=== PATIENT | male | born 1940 | race Caucasian/White ===

== ENCOUNTER 2017-02-14 11:36 | Inpatient (IN) | payer MEDICARE, OTHER ==
[2017-02-14 11:57] VITALS: BMI 33.5
[2017-02-14] MEDS ORDERED: MAGNESIUM SULF 50% (8.12 MEQ/2 ML-1 GM VIAL) ONE (12:01)
[2017-02-14] MEDS ORDERED: methylPREDNISolone NA SUCC 125 MG/2 ML VIAL ONE (12:02)
[2017-02-14] MEDS ORDERED: MAGNESIUM SULF 50% (8.12 MEQ/2 ML-1 GM VIAL) IVPB ONE (12:07)
[2017-02-14] MEDS ORDERED: methylPREDNISolone NA SUCC 125 MG/2 ML VIAL IVPB ONE (12:09)
[2017-02-14] MEDS ORDERED: ALBUTEROL SO4 2.5/IPRATROPIUM 0.5 INH SOL 3 ML VIAL.NEB. NEB ONE ×3 (12:10→14:11)
--- NOTE | 2017-02-14 12:16 | PDOC ---
History of Present Illness <Ana Paula Haines - Last Filed: 02/14/17 12:21> <Ariana Sanchez - Last Filed: 02/14/17 14:04> - General Chief Complaint: Shortness of Breath Stated Complaint: ASTHMA - History of Present Illness Initial Comments: 02/14/17 12:20 The patient is a 76 year old male, with a significant past medical history of asthma and hypertension (on Lasix), who presents to the emergency department [facility], with shortness of breath, difficulty breathing, and cough for the past few days with increased symptoms today. The patient reports his cough is dry, nonproductive. The patient reports the nebulizer treatment he received via ems slightly alleviated his respiratory symptoms today. The patient reports he was admitted to the hospital in [place] for pneumonia about a year ago and reports his symptoms today feel similar to the symptoms experienced at the time of his admission. Secondarily, the patient reports his left breast is slightly larger than his right breast and feels his left breast has slowly becoming more swollen over time. He denies chest pain, headache and dizziness. He denies fever, chills, nausea, vomit, diarrhea and constipation. He denies dysuria, frequency, urgency and hematuria. Allergies: NKDA Social history: denies toxic habits Surgical History: mora and screws in right lower extremity PCP - Dr. Wheat (Ana Paula Haines) Past History <Ana Paula Haines - Last Filed: 02/14/17 12:21> - Past Medical History Anemia: No Asthma: Yes Cancer: No Cardiac Disorders: No CVA: No COPD: No CHF: No Dementia: No Diabetes: No GI Disorders: No Disorders: No HTN: Yes Hypercholesterolemia: Yes Liver Disease: No Seizures: No Thyroid Disease: No - Surgical History Abdominal Surgery: No Appendectomy: No Cardiac Surgery: No Cholecystectomy: No Lung Surgery: No Neurologic Surgery: No Orthopedic Surgery: Yes (R LEG ORIF) - Immunization History Immunization Up to Date: Yes - Psycho/Social/Smoking Cessation Hx Anxiety: No Suicidal Ideation: Yes Smoking History: Never smoked Have you smoked in the past 12 months: No Number of Cigarettes Smoked Daily: 0 Cigars Per Day: 0 Information on smoking cessation initiated: No Hx Alcohol Use: Yes Drug/Substance Use Hx: Yes Substance Use Type: Alcohol Hx Substance Use Treatment: No <Ariana Sanchez - Last Filed: 02/14/17 14:04> - Past Medical History Allergies/Adverse Reactions: Allergies Allergy/AdvReac Type Severity Reaction Status Date / Time No Known Allergies Allergy Verified 02/14/17 11:57 Home Medications: Ambulatory Orders Acetaminophen with Codeine [Tylenol with Codeine #4 Tablet] 1 each PO Q8H PRN Albuterol 2.5/Ipratropium 0.5 [Duoneb -] 1 neb IH Q6H PRN 02/14/17 Albuterol Sulfate Inhaler - [Ventolin Hfa Inhaler -] 2 inh PO Q4H PRN 02/14/17 Aspirin [ASA -] 81 mg PO DAILY 02/14/17 Budesonide/Formeterol Fumarate [SYMBICORT 160/4.5mcg -] 2 inh PO BID 02/14/17 Furosemide [Lasix] 40 mg PO ASDIR 02/14/17 Metoprolol Tartrate [Lopressor -] 25 mg PO DAILY 02/14/17 Thiamine HCl [B-1] 100 mg PO DAILY 02/14/17 Tramadol HCl [Ultram] 50 mg PO BID PRN 02/14/17 Valsartan [Diovan] 80 mg PO DAILY 02/14/17 Cardiac Specific PMH - Complaint Specific PMHX Pacemaker: No <Ariana Sanchez - Last Filed: 02/14/17 14:04> Review of Systems - Review of Systems Able to Perform ROS?: Yes <Ana Paula Haines - Last Filed: 02/14/17 12:21> <Ariana Sanchez - Last Filed: 02/14/17 14:04> - Review of Systems Comments:: 02/14/17 12:21 GENERAL/CONSTITUTIONAL: No fever or chills. No weakness. HEAD, EYES, EARS, NOSE AND THROAT: No change in vision. No ear pain or discharge. No sore throat. CARDIOVASCULAR: No chest pain or shortness of breath. RESPIRATORY: (+)SOB, cough and wheezing, No hemoptysis. GASTROINTESTINAL: No nausea, vomiting, diarrhea or constipation. GENITOURINARY: No dysuria, frequency, or change in urination. MUSCULOSKELETAL: No joint or muscle swelling or pain. No neck or back pain. SKIN: No rash NEUROLOGIC: No headache, vertigo, loss of consciousness, or change in strength/ sensation. ENDOCRINE: No increased thirst. No abnormal weight change. HEMATOLOGIC/LYMPHATIC: No anemia, easy bleeding, or history of blood clots. ALLERGIC/IMMUNOLOGIC: No hives or skin allergy. (Ana Paula Haines) *Physical Exam <Ana Paula Haines - Last Filed: 02/14/17 12:21> <Ariana Sanchez - Last Filed: 02/14/17 14:04> - Vital Signs Last Vital Signs Temp Pulse Resp BP Pulse Ox 97.9 F 74 18 150/85 100 02/14/17 11:54 02/14/17 11:54 02/14/17 11:54 02/14/17 11:54 02/14/17 12:16 - Physical Exam Comments: 02/14/17 12:22 GENERAL: Awake, alert, and fully oriented, in no acute distress HEAD: No signs of trauma EYES: PERRLA, EOMI, sclera anicteric, conjunctiva clear ENT: (+) Dry mucosa. Auricles normal inspection, hearing grossly normal, nares patent, oropharynx clear without exudates. NECK: Normal ROM, supple, no lymphadenopathy, JVD, or masses LUNGS: (+) bilateral wheezing with good effort. Breath sounds equal, No crackles HEART: Regular rate and rhythm, normal S1 and S2, no murmurs, rubs or gallops ABDOMEN: Soft, nontender, normoactive bowel sounds. No guarding, no rebound. No masses EXTREMITIES: (+) bilateral non-pitting edema. Normal range of motion. No clubbing or cyanosis. No cords, erythema, or tenderness NEUROLOGICAL: AAOx3. Normal speech, SKIN: Warm, Dry, normal turgor, no rashes or lesions noted. (Ana Paula Haines) Heart Score/ECG Review #1 General ECG Interpretation: Sinus Rhythm, Normal Rate (76 bpm), Normal Intervals , No acute ischemic changes <Ariana Sanchez - Last Filed: 02/14/17 14:04> ED Treatment Course - LABORATORY CBC & Chemistry Diagram: 02/14/17 12:45 02/14/17 12:45 <Ariana Sanchez - Last Filed: 02/14/17 14:04> - ADDITIONAL ORDERS Additional order review: Laboratory Results 02/14/17 02/14/17 12:45 12:10 Sodium 142 Potassium 4.1 Chloride 107 Carbon Dioxide 24 Anion Gap 11 BUN 12 D Creatinine 0.6 L D Creat Clearance w eGFR > 60 Random Glucose 78 Calcium 8.1 L Total Bilirubin 1.8 H D AST 37 D ALT 24 D Alkaline Phosphatase 236 H D Creatine Kinase 121 Troponin I < 0.02 B-Natriuretic Peptide 245.39 Total Protein 7.2 Albumin 2.8 L 02/14/17 12:45 RBC 4.30 MCV 76.1 L MCHC 32.1 RDW 22.2 H D MPV 8.7 D Neutrophils % Y Lymphocytes % Y - RADIOLOGY Radiology Studies Ordered: Category Date Time Status CHEST PA & LAT [RAD] Stat Radiology 02/14/17 12:10 Completed - Medications Given in the ED: ED Medications Discontinued Medications Generic Name Dose Route Start Last Admin Trade Name Freq PRN Reason Stop Dose Admin Albuterol/Ipratropium 1 amp 02/14/17 12:10 02/14/17 12:24 Duoneb - NEB 02/14/17 12:11 1 amp ONCE ONE Administration Magnesium Sulfate 2 gm 02/14/17 12:07 02/14/17 12:23 Magnesium Sulfate IVPB 02/14/17 12:08 2 gm ONCE ONE Administration Methylprednisolone Sodium Succinate 125 mg 02/14/17 12:09 02/14/17 12:24 Solu-Medrol - IVPB 02/14/17 12:10 125 mg ONCE ONE Administration Medical Decision Making <Ana Paula Haines - Last Filed: 02/14/17 12:21> <Ariana Sanchez - Last Filed: 02/14/17 14:04> - Medical Decision Making 02/14/17 12:12 77 yo male with h/o HTN, CHF asthma here with cough dry nonproductive, no f/c no chest pain. no leg swelling. has been going on for days, worse since last night. no f/c no h/o blood clots . was admitted for pna, respiratory problem one year ago. denies tobacco use. on exam, pt awake NAD. lungs bilateral wheezing. no f/c no abd tenderness. ext bilat nonpitting edema. differential: pna, asthma exacerbation, bronchitis, chf, plan cbc cxr cmp ekg duoneb steroids, magnesium. reassess. 02/14/17 12:16 (Ariana Sanchez) *DC/Admit/Observation/Transfer <Ana Paula Haines - Last Filed: 02/14/17 12:21> - Discharge Dispostion Admit: Yes <Ariana Sanchez - Last Filed: 02/14/17 14:04> Diagnosis at time of Disposition: Exacerbation of asthma - Referrals Referrals: Lis Flores MD [Primary Care Provider] - - Attestations Scribe Attestion: 02/14/17 12:24 Documentation prepared by Ana Paula Haines, acting as pesticide use medical coordinator for Ariana Sanchez MD, (Ana Paula Haines)
[2017-02-14 12:57] LABS: MCH 24.4 pg (25.7-33.7); MCHC 32.1 g/dl (32.0-35.9); MEAN CELL VOLUME 76.1 fl (80-96); MEAN PLT VOLUME 8.7 fl (7.5-11.1); PLATELET COUNT 118 K/MM3 (134-434); RDW 22.2 % (11.9-15.9)
[2017-02-14 13:35] LABS: ALBUMIN 2.8 g/dl (3.4-5.0); ALK PHOS 236 U/L (45-117); ANION GAP 11 (8-16); BILIRUBIN,TOTAL 1.8 mg/dL (0.2-1.0); CALCIUM 8.1 mg/dL (8.5-10.1); CO2 24 mmol/L (21-32); COCKROFT - GAULT 133.08; CREATININE 0.6 mg/dL (0.7-1.3); GLUCOSE,RANDOM 78 mg/dL (74-106); SGOT/AST 37 U/L (15-37); SGPT/ALT 24 U/L (12-78); TOT PROT 7.2 g/dl (6.4-8.2)
[2017-02-14 13:39] LABS: TROPONIN I < 0.02 ng/ml (0.00-0.05)
[2017-02-14] MEDS ORDERED: FUROSEMIDE 40 MG TABLET (FP) PO SCH (14:30)
[2017-02-14] MEDS ORDERED: ALBUTEROL SO4 2.5/IPRATROPIUM 0.5 INH SOL 3 ML VIAL.NEB. NEB PRN (14:30)
--- NOTE | 2017-02-14 14:30 | HP ---
CHIEF COMPLAINT: PCP: HISTORY OF PRESENT ILLNESS: The patient is a 76 year old male, with a significant past medical history of asthma and hypertension (on Lasix), who presents to the emergency department [facility], with shortness of breath, difficulty breathing, and cough for the past few days with increased symptoms today. The patient reports his cough is dry, nonproductive. The patient reports the nebulizer treatment he received via ems slightly alleviated his respiratory symptoms today. The patient reports he was admitted to the hospital in [place] for pneumonia about a year ago and reports his symptoms today feel similar to the symptoms experienced at the time of his admission. Secondarily, the patient reports his left breast is slightly larger than his right breast and feels his left breast has slowly becoming more swollen over time. He denies chest pain, headache and dizziness. He denies fever, chills, nausea, vomit, diarrhea and constipation. He denies dysuria, frequency, urgency and hematuria. Allergies: NKDA Social history: denies toxic habits Surgical History: mora and screws in right lower extremity PCP - Dr. Wheat ([address] [place] [address]) ER course was notable for: (1) pt recieved solumedrol , nebs, and mag for copd / asthma excerbation (2) cxr noted to have no infiltrate or loculations, / asthma only (3) Social History: Smoking:denies Alcohol:occ Drugs: Family History: Allergies No Known Allergies Allergy (Verified 02/14/17 11:57) HOME MEDICATIONS: Home Medications Medication Instructions Recorded Acetaminophen with Codeine 1 each PO Q8H PRN 02/14/17 [Tylenol with Codeine #4 Tablet] Albuterol 2.5/Ipratropium 0.5 1 neb IH Q6H PRN 02/14/17 [Duoneb -] Albuterol Sulfate Inhaler - 2 inh PO Q4H PRN 02/14/17 [Ventolin Hfa Inhaler -] Aspirin [ASA -] 81 mg PO DAILY 02/14/17 Budesonide/Formeterol Fumarate 2 inh PO BID 02/14/17 [SYMBICORT 160/4.5mcg -] Furosemide [Lasix] 40 mg PO ASDIR 02/14/17 Metoprolol Tartrate [Lopressor -] 25 mg PO DAILY 02/14/17 Thiamine HCl [B-1] 100 mg PO DAILY 02/14/17 Tramadol HCl [Ultram] 50 mg PO BID PRN 02/14/17 Valsartan [Diovan] 80 mg PO DAILY 02/14/17 REVIEW OF SYSTEMS CONSTITUTIONAL: Absent: fever, chills, diaphoresis, generalized weakness, malaise, loss of appetite, weight change HEENT: Absent: rhinorrhea, nasal congestion, throat pain, throat swelling, difficulty swallowing, mouth swelling, ear pain, eye pain, visual changes CARDIOVASCULAR: Absent: chest pain, syncope, palpitations, irregular heart rate, lightheadedness , peripheral edema RESPIRATORY: Absent: (+)cough, (+)shortness of breath, dyspnea with exertion, orthopnea,(+) wheezing, stridor, hemoptysis GASTROINTESTINAL: Absent: abdominal pain, abdominal distension, nausea, vomiting, diarrhea, constipation, melena, hematochezia GENITOURINARY: Absent: dysuria, frequency, urgency, hesitancy, hematuria, flank pain, genital pain MUSCULOSKELETAL: Absent: myalgia, arthralgia, joint swelling, back pain, neck pain SKIN: Absent: rash, itching, pallor HEMATOLOGIC/IMMUNOLOGIC: Absent: easy bleeding, easy bruising, lymphadenopathy, frequent infections ENDOCRINE: Absent: unexplained weight gain, unexplained weight loss, heat intolerance, cold intolerance NEUROLOGIC: Absent: headache, focal weakness or paresthesias, dizziness, unsteady gait, seizure, mental status changes, bladder or bowel incontinence PSYCHIATRIC: Absent: anxiety, depression, suicidal or homicidal ideation, hallucinations. PHYSICAL EXAMINATION Vital Signs - 24 hr 02/14/17 02/14/17 11:54 12:16 Temperature 97.9 F Pulse Rate 74 Respiratory 18 Rate Blood Pressure 150/85 O2 Sat by Pulse 99 100 Oximetry (%) GENERAL: Awake, alert, and fully oriented, in no acute distress. HEAD: Normal with no signs of trauma. EYES: Pupils equal, round and reactive to light, extraocular movements intact, sclera anicteric, conjunctiva clear. No lid lag. EARS, NOSE, THROAT: Ears normal, nares patent, oropharynx clear without exudates. Moist mucous membranes. NECK: Normal range of motion, supple without lymphadenopathy, JVD, or masses. LUNGS: Breath sounds equal, bilaterally wheezing but not in severe distress to auscultation bilaterally. No wheezes, and no crackles. No accessory muscle use. HEART: Regular rate and rhythm, normal S1 and S2 without murmur, rub or gallop. ABDOMEN: Soft, nontender, not distended, normoactive bowel sounds, no guarding, no rebound, no masses. No hepatomegaly or splenomegaly. MUSCULOSKELETAL: Normal range of motion at all joints. No bony deformities or tenderness. No CVA tenderness. UPPER EXTREMITIES: 2+ pulses, warm, well-perfused. No cyanosis. No clubbing. No peripheral edema. LOWER EXTREMITIES: 2+ pulses, warm, well-perfused. No calf tenderness. No peripheral edema. NEUROLOGICAL: Cranial nerves II-XII intact. Normal speech. Normal gait. PSYCHIATRIC: Cooperative. Good eye contact. Appropriate mood and affect. SKIN: Warm, dry, normal turgor, no rashes or lesions noted, normal capillary refill. Laboratory Results - last 24 hr 02/14/17 02/14/17 02/14/17 12:10 12:45 12:45 WBC 7.0 D RBC 4.30 Hgb 10.5 L Hct 32.7 L MCV 76.1 L MCHC 32.1 RDW 22.2 H D Plt Count 118 L D MPV 8.7 D Neutrophils % Y Lymphocytes % Y Sodium 142 Potassium 4.1 Chloride 107 Carbon Dioxide 24 Anion Gap 11 BUN 12 D Creatinine 0.6 L D Creat Clearance w eGFR > 60 Random Glucose 78 Calcium 8.1 L Total Bilirubin 1.8 H D AST 37 D ALT 24 D Alkaline Phosphatase 236 H D Creatine Kinase 121 Troponin I < 0.02 B-Natriuretic Peptide 245.39 Total Protein 7.2 Albumin 2.8 L ASSESSMENT/PLAN: This 76 year old male who presents with c/o asthma excerbation in the ER now with similar complaints without inability to break wheezing. Pt was given solumedrol 125 , mag sulfate 2 gm, and duonebs until they finally tried to break them. 1. copd exacerbation -admission for med surg obs -continue with steroid taper -pulse ox >95% -duo nebs as needed. Visit type - Emergency Visit Emergency Visit: Yes Care time: The patient presented to the Emergency Department on the above date and was hospitalized for further evaluation of their emergent condition. - New Patient This patient is new to me today: Yes Date on this admission: 02/14/17 - Critical Care Critical Care patient: No
[2017-02-14 14:47] LABS: PLATELET ESTIMATE DECREASED (NORMAL)
[2017-02-14 14:50] LABS: HYPOCHROMIA 2+; MICROCYTOSIS 1+; TARGET CELLS FEW
[2017-02-14 14:51] LABS: ANISOCYTOSIS 2+
[2017-02-14] MEDS: BUDESONIDE/FORMETEROL FUMARATE 160/4.5 mcg INHALER IH SCH (22:17)
[2017-02-15 07:53] LABS: BASOPHIL 0.6 % (0-2.0); EOSINOPHIL 0.1 % (0-4.5); MCH 24.8 pg (25.7-33.7); MCHC 32.2 g/dl (32.0-35.9); MEAN CELL VOLUME 77.1 fl (80-96); NEUTROPHILS 87.8 % (42.8-82.8); PLATELET COUNT 112 K/MM3 (134-434); RDW 22.7 % (11.9-15.9); WHITE BLOOD COUNT 10.3 K/mm3 (4.0-10.0)
[2017-02-15 08:56] LABS: CALCIUM 7.9 mg/dL (8.5-10.1); COCKROFT - GAULT 113.52; CREATININE 0.7 mg/dL (0.7-1.3)
[2017-02-15] MEDS ORDERED: predniSONE 20 MG TABLET (UD) PO SCH (10:00)
[2017-02-15] MEDS: ASPIRIN 81 MG CHEWABLE TABLETS PO SCH (11:01)
[2017-02-15] MEDS: METOPROLOL TARTRATE 25 MG TABLET (FP) PO SCH (11:07)
[2017-02-15] MEDS: VALSARTAN 80 MG TABLET (UD) PO SCH (11:07)
[2017-02-15] MEDS: BUDESONIDE/FORMETEROL FUMARATE 160/4.5 mcg INHALER IH SCH ×2 (11:10→22:12)
[2017-02-15] MEDS: THIAMINE HCL 100 MG TABLET (FP) PO SCH (11:10)
--- NOTE | 2017-02-15 16:02 | EKG ---
Test Reason : Blood Pressure : / mmHG Vent. Rate : 076 BPM Atrial Rate : 076 BPM P-R Int : 154 ms QRS Dur : 094 ms QT Int : 400 ms P-R-T Axes : 024 041 015 degrees QTc Int : 450 ms SINUS RHYTHM WITH MARKED SINUS ARRHYTHMIA OTHERWISE NORMAL ECG WHEN COMPARED WITH ECG OF 29-NOV-2015 21:29, VENT. RATE HAS DECREASED BY 41 BPM NONSPECIFIC T WAVE ABNORMALITY HAS REPLACED INVERTED T WAVES IN INFERIOR LEADS NONSPECIFIC T WAVE ABNORMALITY NO LONGER EVIDENT IN LATERAL LEADS Confirmed by DEMAR GOMES MD ([id number]) on 02/15/2017 4:02:14 PM Referred By: Confirmed By:DEMAR GOMES MD
--- NOTE | 2017-02-15 17:35 | PN ---
Physical Exam: SUBJECTIVE: Patient seen and examined. He says he is still coughing but less and his chest tightness is improved OBJECTIVE: Vital Signs Period Temp Pulse Resp BP Sys/Cronin Pulse Ox Last 24 Hr 98.3 F 76 19 138/73 PE Neuro: alert, awake, cn 2-12intact Pulm: diffuse b/l wheezing, course BC, +nc CV: s1 s2 rrr no mrg Abd: s nt nd +bs Ext: +2 RLE edema, left le non, warm Active Medications Generic Name Dose Route Start Last Admin Trade Name Freq PRN Reason Stop Dose Admin Albuterol/Ipratropium 1 amp 02/14/17 14:30 Duoneb - NEB Q6H PRN ASTHMA Aspirin 81 mg 02/15/17 10:00 02/15/17 11:01 Asa - PO 81 mg DAILY VALENCIA Administration Budesonide/Formoterol Fumarate 2 puff 02/14/17 22:00 02/15/17 11:10 Symbicort 160/4.5mcg - IH 2 puff BID VALENCIA Administration Furosemide 40 mg 02/16/17 10:00 Lasix - PO Q2D@10 VALENCIA Metoprolol Tartrate 25 mg 02/15/17 10:00 02/15/17 11:07 Lopressor - PO 25 mg DAILY VALENCIA Administration Prednisone 40 mg 02/15/17 10:00 02/15/17 11:01 Deltasone - PO 02/17/17 11:00 40 mg DAILY VALENCIA Administration Thiamine HCl 100 mg 02/15/17 10:00 02/15/17 11:10 Vitamin B1 - PO 100 mg DAILY VALENCIA Administration Valsartan 80 mg 02/15/17 10:00 02/15/17 11:07 Diovan - PO 80 mg DAILY VALENCIA Administration Assessment: 76 year old male with asthma and hypertension (on Lasix), hx of etoh abuse, Right hip replacement, knee replacement admitted with asthma exacerbation. Plan: 1. Acute COPD/asthma exacerbation - Switch to solumedrol 40mg q8 for continued wheezing - Continue symbicort BID - Duonebs PRN 2. HTN/HCVD - ASA daily - Lasix 40mg Q2d - Metoprolol 25mg daily - Diovan 80mg daily 3. ETOH abuse - Thiamine daily 4. Thrombocytopenia - Likely due to ETOH abuse - Will monitor, hold chemical AC 5. Microcytic anemia - Will obtain iron studies Visit type - Emergency Visit Emergency Visit: Yes ED Registration Date: 02/15/17 Care time: The patient presented to the Emergency Department on the above date and was hospitalized for further evaluation of their emergent condition. - New Patient This patient is new to me today: Yes Date on this admission: 02/15/17 - Critical Care Critical Care patient: No
[2017-02-15] MEDS: methylPREDNISolone NA SUCC 40 MG/1 ML VIAL IVPB SCH (18:40)
[2017-02-16] MEDS: methylPREDNISolone NA SUCC 40 MG/1 ML VIAL IVPB SCH ×4 (01:37→22:03)
[2017-02-16 07:29] LABS: BASOPHIL 0.1 % (0-2.0); MCH 24.4 pg (25.7-33.7); MEAN CELL VOLUME 76.2 fl (80-96); MEAN PLT VOLUME 8.6 fl (7.5-11.1); NEUTROPHILS 89.4 % (42.8-82.8); PLATELET COUNT 100 K/MM3 (134-434); RDW 22.9 % (11.9-15.9); WHITE BLOOD COUNT 10.7 K/mm3 (4.0-10.0)
[2017-02-16 08:04] LABS: ALBUMIN 2.6 g/dl (3.4-5.0); ANION GAP 8 (8-16); BILIRUBIN,TOTAL 1.5 mg/dL (0.2-1.0); CALCIUM 7.8 mg/dL (8.5-10.1); CO2 24 mmol/L (21-32); COCKROFT - GAULT 98.53; CREATININE 0.8 mg/dL (0.7-1.3); GLUCOSE,RANDOM 145 mg/dL (74-106); SGOT/AST 29 U/L (15-37); SGPT/ALT 26 U/L (12-78); TOT PROT 6.8 g/dl (6.4-8.2)
[2017-02-16 08:08] LABS: ALK PHOS 193 U/L (45-117); FERRITIN 9.118 ng/ml (16.4-293.9)
[2017-02-16] MEDS: METOPROLOL TARTRATE 25 MG TABLET (FP) PO SCH (09:51)
[2017-02-16] MEDS: VALSARTAN 80 MG TABLET (UD) PO SCH (09:51)
[2017-02-16] MEDS: THIAMINE HCL 100 MG TABLET (FP) PO SCH (09:51)
[2017-02-16] MEDS: ASPIRIN 81 MG CHEWABLE TABLETS PO SCH (09:51)
[2017-02-16] MEDS ORDERED: PT OWN MED DRAWER 7, Y5N ONE (09:53)
[2017-02-16] MEDS: BUDESONIDE/FORMETEROL FUMARATE 160/4.5 mcg INHALER IH SCH ×2 (09:54→22:03)
[2017-02-16] MEDS ORDERED: FUROSEMIDE 40 MG TABLET (FP) PO SCH (10:00)
--- NOTE | 2017-02-16 14:12 | PN ---
Physical Exam: SUBJECTIVE: Patient seen and examined. He says he feels normal, he is coughing but no phlegm. OBJECTIVE: Vital Signs Period Temp Pulse Resp BP Sys/Cronin Pulse Ox Last 24 Hr 97.7 F-98.3 F 64-81 18-20 121-154/58-74 95-99 PE Neuro: alert, awake, cn 2-12intact Pulm: distant bs, less wheezing, mild inspiratory wheeze, + nc CV: s1 s2 rrr no mrg Abd: s nt nd +bs Ext: +2 RLE edema, left le non, warm Msk: R knee tenderness- chronic Laboratory Results - last 24 hr 02/16/17 02/16/17 06:40 06:40 WBC 10.7 H RBC 4.05 Hgb 9.9 L Hct 30.9 L MCV 76.2 L MCHC 32.0 RDW 22.9 H Plt Count 100 L MPV 8.6 Neutrophils % 89.4 H Lymphocytes % 7.7 L Monocytes % 2.8 L Eosinophils % 0.0 D Basophils % 0.1 Sodium 140 Potassium 4.7 Chloride 108 H Carbon Dioxide 24 Anion Gap 8 BUN 23 H D Creatinine 0.8 Creat Clearance w eGFR > 60 Random Glucose 145 H Calcium 7.8 L Ferritin 9.118 L Total Bilirubin 1.5 H AST 29 D ALT 26 Alkaline Phosphatase 193 H Total Protein 6.8 Albumin 2.6 L Active Medications Generic Name Dose Route Start Last Admin Trade Name Freq PRN Reason Stop Dose Admin Albuterol/Ipratropium 1 amp 02/14/17 14:30 02/15/17 21:56 Duoneb - NEB 1 amp Q6H PRN Administration ASTHMA Aspirin 81 mg 02/15/17 10:00 02/16/17 09:51 Asa - PO 81 mg DAILY VALENCIA Administration Budesonide/Formoterol Fumarate 2 puff 02/14/17 22:00 02/16/17 09:54 Symbicort 160/4.5mcg - IH 2 puff BID VALENCIA Administration Furosemide 40 mg 02/16/17 10:00 02/16/17 09:54 Lasix - PO 40 mg Q2D@10 VALENCIA Administration Methylprednisolone Sodium Succinate 40 mg 02/15/17 18:00 02/16/17 09:51 Solu-Medrol - IVPB 40 mg Q8H-IV VALENCIA Administration Metoprolol Tartrate 25 mg 02/15/17 10:00 02/16/17 09:51 Lopressor - PO 25 mg DAILY VALENCIA Administration Thiamine HCl 100 mg 02/15/17 10:00 02/16/17 09:51 Vitamin B1 - PO 100 mg DAILY VALENCIA Administration Valsartan 80 mg 02/15/17 10:00 02/16/17 09:51 Diovan - PO 80 mg DAILY VALENCIA Administration Assessment: 76 year old male with asthma and hypertension (on Lasix), hx of etoh abuse, Right hip replacement, knee replacement admitted with asthma exacerbation. Plan: 1. Acute COPD/asthma exacerbation - Continue solumedrol 40mg q8, can taper to PO if improved tomorrow - Continue symbicort BID - Duonebs PRN - Obtain pre and post home 02 2. HTN/HCVD - ASA daily - Lasix 40mg Q2d - Metoprolol 25mg daily - Diovan 80mg daily 3. ETOH abuse - Thiamine daily 4. Thrombocytopenia - Likely due to ETOH abuse - Will monitor, hold chemical AC 5. Microcytic anemia - Iron studies pending - Ferritin low Visit type - Emergency Visit Emergency Visit: Yes ED Registration Date: 02/15/17 Care time: The patient presented to the Emergency Department on the above date and was hospitalized for further evaluation of their emergent condition. - New Patient This patient is new to me today: No - Critical Care Critical Care patient: No
[2017-02-17 06:11] LABS: SERUM IRON 19 ug/dL (38-169); TOTAL IRON BINDING CAPACITY 358 ug/dL (250-450); UIBC 339 ug/dL (111-343)
[2017-02-17 08:10] LABS: TRANSFERRIN 298 mg/dL (200-370)
[2017-02-17 08:27] LABS: BASOPHIL 0.1 % (0-2.0); MCH 24.7 pg (25.7-33.7); MCHC 32.5 g/dl (32.0-35.9); MEAN CELL VOLUME 75.9 fl (80-96); PLATELET COUNT 120 K/MM3 (134-434); RDW 23.2 % (11.9-15.9); WHITE BLOOD COUNT 10.4 K/mm3 (4.0-10.0)
[2017-02-17] MEDS: THIAMINE HCL 100 MG TABLET (FP) PO SCH (09:05)
[2017-02-17] MEDS: methylPREDNISolone NA SUCC 40 MG/1 ML VIAL IVPB SCH (09:05)
[2017-02-17] MEDS: METOPROLOL TARTRATE 25 MG TABLET (FP) PO SCH (09:05)
[2017-02-17] MEDS: ASPIRIN 81 MG CHEWABLE TABLETS PO SCH (09:06)
[2017-02-17] MEDS: VALSARTAN 80 MG TABLET (UD) PO SCH (09:06)
[2017-02-17] MEDS: BUDESONIDE/FORMETEROL FUMARATE 160/4.5 mcg INHALER IH SCH (09:15)
[2017-02-17 10:21] LABS: ALBUMIN 2.7 g/dl (3.4-5.0); ALK PHOS 199 U/L (45-117); ANION GAP 10 (8-16); BILIRUBIN,TOTAL 1.6 mg/dL (0.2-1.0); CALCIUM 8.3 mg/dL (8.5-10.1); CO2 25 mmol/L (21-32); COCKROFT - GAULT 97.51; CREATININE 0.8 mg/dL (0.7-1.3); GLUCOSE,RANDOM 141 mg/dL (74-106); SGOT/AST 32 U/L (15-37); SGPT/ALT 28 U/L (12-78); TOT PROT 7.1 g/dl (6.4-8.2)
--- NOTE | 2017-02-17 13:59 | DS ---
Physical Exam: SUBJECTIVE: Patient seen and examined. He is feeling well, no wheezing, he is not requiring additional o2 OBJECTIVE: Vital Signs Period Temp Pulse Resp BP Sys/Cronin Pulse Ox Last 24 Hr 97.7 F-98.4 F 62-93 18-20 130-151/71-77 95-96 PE Neuro: alert, awake, cn 2-12intact Pulm: distant bs, basilar rhonchi, no sob, no wheezing CV: s1 s2 rrr no mrg Abd: s nt nd +bs Ext: +2 RLE edema, left le non, warm Msk: R knee tenderness- chronic Laboratory Results - last 24 hr 02/16/17 02/17/17 02/17/17 06:40 07:10 07:10 WBC 10.4 H RBC 4.26 Hgb 10.5 L Hct 32.4 L MCV 75.9 L MCHC 32.5 RDW 23.2 H Plt Count 120 L MPV 10.0 D Neutrophils % 89.0 H Lymphocytes % 7.6 L Monocytes % 3.3 L Eosinophils % 0.0 Basophils % 0.1 Sodium 139 Potassium 4.1 Chloride 104 Carbon Dioxide 25 Anion Gap 10 BUN 28 H D Creatinine 0.8 Creat Clearance w eGFR > 60 Random Glucose 141 H Calcium 8.3 L Iron 19 L TIBC 358 Iron Saturation 5 L Transferrin 298 Total Bilirubin 1.6 H AST 32 ALT 28 Alkaline Phosphatase 199 H Total Protein 7.1 Albumin 2.7 L HOSPITAL COURSE: Date of Admission:02/15/17 Date of Discharge: 02/17/17 Minutes to complete discharge: 35 Discharge Summary Reason For Visit: EXACERBATION OF ASTHMA Current Active Problems Abnormal ECG (Acute) Alcohol dependence with uncomplicated withdrawal (Acute) Asthma attack (Acute) Chest pain (Acute) EtOH dependence (Acute) HTN (hypertension) (Acute) Hypokalemia (Acute) Hospital Course: Initial Hospital Course: Briefly, this 76 year old male, with a significant past medical history of asthma and hypertension (on Lasix), who presented BIBA to ED with shortness of breath, difficulty breathing, and cough for the past few days with increasing on day of admission. The patient reported his cough is dry, nonproductive and nebulizer treatment he received via ems slightly alleviated his respiratory symptoms. Recently, he was seen in [place] for pneumonia about a year ago and reported his symptoms today feel similar to the symptoms experienced at the time of his admission. Secondarily, the patient reports his left breast is slightly larger than his right breast and feels his left breast has slowly becoming more swollen over time. Subsequent Hospital Course/Progress Note/Discharge Summary: Assessment: 76 year old male with asthma and hypertension (on Lasix), hx of etoh abuse, Right hip replacement, knee replacement admitted with asthma exacerbation. Plan: 1. Acute COPD/asthma exacerbation - s/p IV solumedrol - Home with Prednisone taper - Continue symbicort BID 2. HTN/HCVD - ASA daily - Lasix 40mg Q2d - Metoprolol 25mg daily - Diovan 80mg daily 3. ETOH abuse - Thiamine daily 4. Thrombocytopenia - Likely due to ETOH abuse, on discharge plts improved 5. Iron deficiency anemia/microcytic anemia - Will give venofer 200mg x1 now - Home with ferrous sulfate 325mg TID with colace - Follow up levels in PCP Dispo: - Home with prednisone taper, iron supplementation follow up with PCP in 2 weeks for repeat levels Condition: Stable - Instructions Diet, Activity, Other Instructions: Please return to the ED for any new, persistent, or worsening symptoms. Follow up with your PCP in 1 week Resume home medications as directed Complete steroid taper as directed Referrals: Lis Flores MD [Primary Care Provider] - 2 Weeks (Follow up iron levels ) Disposition: HOME - Home Medications Comprehensive Discharge Medication List: Ambulatory Orders Albuterol 2.5/Ipratropium 0.5 [Duoneb -] 1 neb IH Q6H PRN 02/14/17 Albuterol Sulfate Inhaler - [Ventolin HFA Inhaler -] 2 inh PO Q4H PRN 02/14/17 Aspirin [ASA -] 81 mg PO DAILY 02/14/17 Budesonide/Formeterol Fumarate [SYMBICORT 160/4.5mcg -] 2 inh PO BID 02/14/17 Furosemide [Lasix] 40 mg PO ASDIR 02/14/17 Metoprolol Tartrate [Lopressor -] 25 mg PO DAILY 02/14/17 Thiamine HCl [B-1] 100 mg PO DAILY 02/14/17 Tramadol HCl [Ultram] 50 mg PO BID PRN 02/14/17 Valsartan [Diovan] 80 mg PO DAILY 02/14/17 Prednisone 10 mg PO ASDIR #31 tablet 02/17/17 This patient is new to me today: No Emergency Visit: Yes ED Registration Date: 02/15/17 Care time: The patient presented to the Emergency Department on the above date and was hospitalized for further evaluation of their emergent condition. Critical Care patient: No - Discharge Referral Referred to [facility] Med P.C.: No
[2017-02-17 14:09] VITALS: TEMP 97.8
[2017-02-17 14:34] VITALS: BP 133/70; PULSE 62
[2017-02-17] MEDS ORDERED: IRON SUCROSE INJECTION 200 MG in SODIUM CHLORIDE 100 ML IVPB ONE (17:23)
== END 2017-02-17 19:10 | disposition home or self-care (01) | DRG 192 ==
LOC: JER 11:36 → JERBED 14:04 → J5S 16:05 → OBSVTOIN 02-15 11:30
PROVIDERS: ADMIT Internal Medicine; ATTEND Nurse Practitioner Acute Care
DX: J44.1 Chronic obstructive pulmonary disease with (acute) exacerbation (principal); I11.9 Hypertensive heart disease without heart failure; F10.10 Alcohol abuse, uncomplicated; D69.6 Thrombocytopenia, unspecified; D50.9 Iron deficiency anemia, unspecified; Z96.659 Presence of unspecified artificial knee joint; Z96.641 Presence of right artificial hip joint
CPT/HCPCS: 36415; 71020-TC; 80048; 80053; 82550; 82728; 83540; 83550; 83880; 84466; 84484; 85025; 93005; 93010; 94640; 94761; 99283-25; G0378; J1756

== ENCOUNTER 2017-06-20 08:53 | Day surgery (SDC) | payer MEDICARE, OTHER ==
[2017-06-19 15:00] VITALS: BMI 31.7
[~2017-06-20 08:53] MED LIST: ACETAMINOPHEN 325 MG TABLET (FP) PO PRN; BSS (NA/CA/MG/K) BALANCED SALT SOLUTION OPHTH SOLN 15 ML BOTTLE OS ONE; LIDOCAINE 1%/EPI 1:100000 (20 ML MULTI DOSE VIAL) IJ ONE; LIDOCAINE HCL 2% JELLY (5 ML/TUBE) TP ONE; POVIDONE-IODINE 5% OPHTHALMIC PREP 30 ML SOLUTION OS ONE; TRIAMCINOLONE ACET 40MG/1ML VIAL IJ ONE
[2017-06-20] MEDS ORDERED: CIPROFLOXACIN 0.3% EYE DROPS 5 ML BOTTLE ONE (09:03)
[2017-06-20] MEDS: CIPROFLOXACIN HCL 0.3% OPHTH 2.5ML BOTTLE OP SCH ×3 (09:10→09:20)
[2017-06-20] MEDS ORDERED: LIDOCAINE HCL 2% JELLY (5 ML/TUBE) ONE (09:36)
[2017-06-20] MEDS ORDERED: MIDAZOLAM HCL 2 MG/2 ML SINGLE DOSE VIAL ONE (09:54)
[2017-06-20] MEDS ORDERED: LIDOCAINE HCL 2% JELLY (5 ML/TUBE) TP ONE (09:55)
[2017-06-20] MEDS ORDERED: POVIDONE-IODINE 5% OPHTHALMIC PREP 30 ML SOLUTION OS ONE (10:03)
[2017-06-20] MEDS ORDERED: LIDOCAINE 1%/EPI 1:100000 (20 ML MULTI DOSE VIAL) IJ ONE ×2 (10:17)
[2017-06-20] MEDS ORDERED: BSS (NA/CA/MG/K) BALANCED SALT SOLUTION OPHTH SOLN 15 ML BOTTLE OS ONE (10:17)
[2017-06-20] MEDS ORDERED: TRIAMCINOLONE ACET 40MG/1ML VIAL IJ ONE (10:36)
--- NOTE | 2017-06-20 11:22 | OP ---
DATE OF OPERATION: PREOPERATIVE DIAGNOSIS: Pterygium left eye. POSTOPERATIVE DIAGNOSIS: Pterygium left eye. PROCEDURE: Excision of pterygium with conjunctival autograft. ANESTHESIA: Topical MAC. COMPLICATIONS: None. DESCRIPTION OF PROCEDURE: The patient was brought to the operating room and correctly identified along with the operative site. She was then prepped and draped in the usual sterile fashion including 5% Betadine solution in the conjunctival sac and an eyelid drape. An eye was inspected and the border of the pterygium marked with a marking pen. Two relaxing incisions were made inferior and superior to the pterygium, and blunt dissection was placed down to bare sclerae using Malia scissors. The pterygium was then freed with blunt dissection using the Malia scissors from the corneal surface. There was no significant tissue noted at the corneal site, but it was polished with a 57 blade. The pterygium was then excised at its base using Malia scissors with care made to avoid damaging the medial rectus tendon by elevating the pterygium during the excision. The conjunctival defect was measured and measured 5 x 8 mm horizontally and vertically respectively. Attention was then placed to the superotemporal conjunctivae, and lidocaine with epinephrine was injected in the subconjunctival space. The appropriate sized conjunctival autograft was then fashioned and sutured into place at the nasal conjunctival defect using five 10-0 nylon sutures. At the end of the surgery, grafts were noted to be well secured. No wound gape noted. Subconjunctival Kenalog given, topical vancomycin placed, the eye patched, and the patient discharged from the operating room in a stable condition. JOHN FREDERICK M.D. [id number]
[2017-06-20 12:13] VITALS: TEMP 98.1
[2017-06-20 12:22] VITALS: BP 139/70; PULSE 62
--- NOTE | 2017-06-21 14:34 | PATH ---
Surgical Pathology Report Patient Name: DARRYL PEDERSEN [facility]. Rec. #: [id number] /Age/Gender: 1940 (Age: 77) / M Account: [id number] Location: [facility] SURGICAL Taken: 06/20/2017 Received: 06/20/2017 Reported: 06/21/2017 Physicians: Anthony Mora M.D. Specimen(s) Received PTERYGIUM LEFT EYE Clinical History Pterygium left eye Final Diagnosis CONJUNCTIVA, LEFT EYE, PTERIGIUM, EXCISION: CONJUNCTIVA WITH ELASTIC DEGENERATION, FIBROSIS, NEOVASCULARIZATION AND FOCAL HEMORRHAGE CONSISTENT WITH PTERIGIUM. Electronically Signed Kevin Roblero M.D. Gross Description Received in formalin, labeled "pterygium left eye" is a evans, irregular portion of soft tissue measuring 0.4 cm in greatest dimension. The specimen is submitted in toto in one cassette. [facility]/06/20/2017 [facility]/06/20/2017
== END 2017-06-20 11:40 | disposition home or self-care (01) ==
LOC: JASU-SURG 08:53
PROVIDERS: ATTEND Ophthalmology
PROC: 08U107Z Supplement of Left Eye with Autologous Tissue Substitute, Open Approach (ICD-10-PCS; principal; 2017-06-20 10:00)
DX: H11.002 Unspecified pterygium of left eye (principal)
CPT/HCPCS: 88304-TC

== ENCOUNTER 2017-08-26 04:17 | Observation (INO) | payer MEDICARE, OTHER ==
--- NOTE | 2017-08-26 04:38 | PDOC ---
History of Present Illness - General History Source: Patient Exam Limitations: No Limitations - History of Present Illness Initial Comments: 08/26/17 05:20 The patient is a 75 year old male with a past medical history of GERD, hyperlipidemia, asthma, hypertension, cataract is his left eye, CHF, noncompliant medicine usage, and alcohol abuse who presents to the ER with dizziness for one night. Patient reports to have had similar symptoms due to his asthma. Patient reports to drink one pint of rum a day. Patient reports when he does not drink his water pills he becomes swollen, however, he has not taken it in two weeks. Secondary to his noncompliant water pills, he reports swelling in both his calves. As per patients son, he is noncompliant with his hypertension, hyperlipidemia, or blood thinner medications. He denies that anyone at home is sick. He denies any recent fevers, chills, or headache. He denies any recent nausea, vomit, diarrhea or constipation. He denies any recent chest pain or shortness of breath. He denies any recent dysuria, frequency, urgency or hematuria. Allergies: NKA Social History: Alcohol abuse. Nonsmoker. Denies recreational drug use. Primary Care Physician: Dr. Lis Treviño <Mirella Nicholas - Last Filed: 08/26/17 06:02> <Lilo Waller - Last Filed: 08/26/17 06:43> <Vilma Cheng - Last Filed: 08/26/17 07:28> - General Chief Complaint: Weakness Stated Complaint: WEAKNESS Time Seen by Provider: 08/26/17 04:25 Past History <Mirella Nicholas - Last Filed: 08/26/17 06:02> - Past Medical History Anemia: No Asthma: Yes Cancer: No Cardiac Disorders: No CVA: No COPD: Yes CHF: No Dementia: No Diabetes: No GI Disorders: Yes (ACID REFLUX) Disorders: Yes (OVERACT BLADDER) HTN: Yes Hypercholesterolemia: Yes Liver Disease: Yes (CIRRHOSIS,FATTY LIVER) Seizures: No Thyroid Disease: No - Surgical History Abdominal Surgery: Yes Appendectomy: No Cardiac Surgery: No Cholecystectomy: No Lung Surgery: No Neurologic Surgery: No Orthopedic Surgery: Yes (R LEG ORIF) - Immunization History Immunization Up to Date: Yes - Suicide/Smoking/Psychosocial Hx Smoking History: Never smoked Have you smoked in the past 12 months: No Number of Cigarettes Smoked Daily: 0 Cigars Per Day: 0 Hx Alcohol Use: Yes (NO ALCOHOL NOW) Drug/Substance Use Hx: Yes Substance Use Type: Alcohol Hx Substance Use Treatment: No <Lilo Waller - Last Filed: 08/26/17 06:43> <Vilma Cheng - Last Filed: 08/26/17 07:28> - Past Medical History Allergies/Adverse Reactions: Allergies Allergy/AdvReac Type Severity Reaction Status Date / Time No Known Allergies Allergy Verified 08/26/17 04:26 Home Medications: Ambulatory Orders Albuterol 2.5/Ipratropium 0.5 [Duoneb -] 1 neb IH Q6H PRN 02/14/17 Albuterol Sulfate Inhaler - [Ventolin HFA Inhaler -] 2 inh PO Q4H PRN 02/14/17 Aspirin [ASA -] 81 mg PO DAILY 02/14/17 Budesonide/Formeterol Fumarate [SYMBICORT 160/4.5mcg -] 2 inh PO BID 02/14/17 Furosemide [Lasix] 40 mg PO ASDIR 02/14/17 Metoprolol Tartrate [Lopressor -] 25 mg PO DAILY 02/14/17 Thiamine HCl [B-1] 100 mg PO DAILY 02/14/17 Tramadol HCl [Ultram] 50 mg PO BID PRN 02/14/17 Valsartan [Diovan] 80 mg PO DAILY 02/14/17 Ascorbic Acid [Vitamin C] 100 mg PO BID #90 tablet 02/17/17 Docusate Sodium [Colace -] 100 mg PO BID #60 capsule 02/17/17 Ferrous Sulfate [Feosol] 325 mg PO TID #90 tablet 02/17/17 Prednisone 10 mg PO ASDIR #31 tablet 02/17/17 Review of Systems - Review of Systems Able to Perform ROS?: Yes Comments:: 08/26/17 05:20 GENERAL/CONSTITUTIONAL: No fever or chills. HEAD, EYES, EARS, NOSE AND THROAT: No change in vision. No ear pain or discharge. No sore throat. CARDIOVASCULAR: No chest pain or shortness of breath. RESPIRATORY: No cough, wheezing, or hemoptysis. GASTROINTESTINAL: No nausea, vomiting, diarrhea or constipation. GENITOURINARY: No dysuria, frequency, or change in urination. MUSCULOSKELETAL: No joint or muscle swelling or pain. No neck or back pain. EXTREMITIES: +Bilateral swelling in calves. SKIN: No rash NEUROLOGIC: +Dizziness. No headache, vertigo, loss of consciousness, or change in strength/sensation. ENDOCRINE: No increased thirst. No abnormal weight change. HEMATOLOGIC/LYMPHATIC: No anemia, easy bleeding, or history of blood clots. ALLERGIC/IMMUNOLOGIC: No hives or skin allergy. All Other Systems: Reviewed and Negative <Mirella Nicholas - Last Filed: 08/26/17 06:02> *Physical Exam - Vital Signs Last Vital Signs Temp Pulse Resp BP Pulse Ox 97 F L 80 18 176/102 95 08/26/17 04:22 08/26/17 04:22 08/26/17 04:22 08/26/17 04:22 08/26/17 04:22 - Physical Exam Comments: 08/26/17 05:21 GENERAL: Afebrile, awake, alert, and fully oriented, in no acute distress HEAD: No signs of trauma EYES: +Iteric. PERRLA, EOMI, conjunctiva clear ENT: +Dk bulbous nose. Auricles normal inspection, hearing grossly normal, nares patent, oropharynx clear without exudates. Moist mucosa NECK: Normal ROM, supple, no lymphadenopathy, JVD, or masses LUNGS: +Decreased breath sounds in the bilateral tops. +Crackles in the upper lung hagen. HEART: Regular rate and rhythm, normal S1 and S2, no murmurs, rubs or gallops ABDOMEN: +Epigastric pain. Soft, normoactive bowel sounds. No guarding, no rebound. No masses EXTREMITIES: +Pitting edema in the calves bilaterally. Normal range of motion. No clubbing or cyanosis. No cords, erythema, or tenderness NEUROLOGICAL: Cranial nerves II through XII grossly intact. Normal speech, normal gait SKIN:+Yellow skin. +No spider angiomata in the chest and abdomen. Warm, Dry, normal turgor, no rashes or lesions noted. <Mirella Nicholas - Last Filed: 08/26/17 06:02> - Vital Signs Last Vital Signs Temp Pulse Resp BP Pulse Ox 97 F L 80 18 176/102 95 08/26/17 04:22 08/26/17 04:22 08/26/17 04:22 08/26/17 04:22 08/26/17 04:22 <Lilo Waller - Last Filed: 08/26/17 06:43> - Vital Signs Last Vital Signs Temp Pulse Resp BP Pulse Ox 99.4 F 93 H 18 148/78 98 08/26/17 07:19 08/26/17 07:19 08/26/17 06:18 08/26/17 07:19 08/26/17 07:19 <Vilma Cheng - Last Filed: 08/26/17 07:28> ED Treatment Course - LABORATORY CBC & Chemistry Diagram: 08/26/17 05:00 08/26/17 05:00 <Mirella Nicholas - Last Filed: 08/26/17 06:02> - LABORATORY CBC & Chemistry Diagram: 08/26/17 05:00 08/26/17 05:00 <Lilo Waller - Last Filed: 08/26/17 06:43> - LABORATORY CBC & Chemistry Diagram: 08/26/17 05:00 08/26/17 05:00 - ADDITIONAL ORDERS Additional order review: Laboratory Results 08/26/17 08/26/17 08/26/17 05:00 05:00 05:00 PT with INR 18.00 H INR 1.59 H Sodium 141 Potassium 4.0 Chloride 107 Carbon Dioxide 26 Anion Gap 8 BUN 8 D Creatinine 0.6 L D Creat Clearance w eGFR > 60 Random Glucose 127 H Calcium 7.6 L Total Bilirubin 1.9 H AST 59 H D ALT 30 Alkaline Phosphatase 265 H D Creatine Kinase 115 Troponin I < 0.02 Total Protein 6.7 Albumin 2.6 L Total Amylase 57 Lipase 278 Urine Color [place] Urine Appearance Clear Urine pH 8.0 Ur Specific [place] 1.015 Urine Protein Negative Urine Glucose (UA) Negative Urine Ketones Negative Urine Blood Negative Urine Nitrite Negative Urine Bilirubin 1+ H Urine Urobilinogen 2.0 08/26/17 05:00 RBC 4.12 MCV 72.3 L MCHC 31.6 L RDW 20.3 H D MPV 8.6 D Neutrophils % 49.0 D Lymphocytes % 21.5 D Monocytes % 12.1 H D Eosinophils % 13.1 H D Basophils % 4.3 H D - Medications Given in the ED: ED Medications Discontinued Medications Generic Name Dose Route Start Last Admin Trade Name Clary PRN Reason Stop Dose Admin Furosemide 80 mg 08/26/17 04:57 08/26/17 05:20 Lasix Injection - IVPUSH 08/26/17 04:58 80 mg ONCE ONE Administration <Vilma Cheng - Last Filed: 08/26/17 07:28> Medical Decision Making - Medical Decision Making 08/26/17 06:02 EKG Reading: Sinus rhythm with premature atrial complexes. Otherwise normal ECG. Vent rate: 74bpm. MT interval: 158ms QRS duration: 96ms QT/QTc: 410/455 ms P-R-T axes 23 39 39 <Mirella Nicholas - Last Filed: 08/26/17 06:02> - Medical Decision Making 08/26/17 06:43 Pt come with dizziness and alcohol abuse; alcoholic hepatitis and jaundice and hyperbilirubinemia on exam. Pt will be admitted to the hospitalist, day team. Night team wont take the report. I will sign out to day ER docs. <Lilo Waller - Last Filed: 08/26/17 06:43> - Medical Decision Making 08/26/17 07:27 case discussed with Laura from who accepts pt to service under Dr. Hart <Vilma Cheng - Last Filed: 08/26/17 07:28> *DC/Admit/Observation/Transfer - Attestations Scribe Attestion: 08/26/17 05:21 Documentation prepared by Mirella Nicholas, acting as medical office specialist for Lilo Waller MD. <Mirella Nicholas - Last Filed: 08/26/17 06:02> <Liol Waller - Last Filed: 08/26/17 06:43> - Discharge Dispostion Admit: Yes <Vilma Cheng - Last Filed: 08/26/17 07:28> Diagnosis at time of Disposition: EtOH dependence, Dizziness, Hyperbilirubinemia, Anemia - Discharge Dispostion Condition at time of disposition: Guarded - Referrals Referrals: Lis Flores MD [Primary Care Provider] - - Patient Instructions - Post Discharge Activity
[2017-08-26] MEDS ORDERED: FOLIC ACID INJECTION - 1 MG, THIAMINE HCL 100 MG, MULTIVIT INJECTION ADULT 10 ML in SOD... IVPB ONE (04:50)
[2017-08-26] MEDS ORDERED: FUROSEMIDE 40 MG/4 ML INJECTABLE VIAL IVPUSH ONE (04:57)
[2017-08-26 05:19] LABS: URINE APPEARANCE CLEAR; URINE BILIRUBIN 1+ (NEGATIVE); URINE BLOOD NEGATIVE (NEGATIVE); URINE COLOR ORANGE; URINE GLUCOSE (UA) NEGATIVE (NEGATIVE); URINE KETONE NEGATIVE (NEGATIVE); URINE NITRITE NEGATIVE (NEGATIVE); URINE PROTEIN NEGATIVE (NEGATIVE)
[2017-08-26] MEDS ORDERED: FUROSEMIDE 40 MG/4 ML INJECTABLE VIAL ONE (05:19)
[2017-08-26 05:20] LABS: BASOPHIL 4.3 % (0-2.0); EOSINOPHIL 13.1 % (0-4.5); MCH 22.8 pg (25.7-33.7); MCHC 31.6 g/dl (32.0-35.9); MEAN CELL VOLUME 72.3 fl (80-96); MEAN PLT VOLUME 8.6 fl (7.5-11.1); PLATELET COUNT 117 K/MM3 (134-434); RDW 20.3 % (11.9-15.9); WHITE BLOOD COUNT 4.2 K/mm3 (4.0-10.0)
[2017-08-26 05:31] LABS: INR 1.59 (0.82-1.09)
[2017-08-26 05:55] LABS: ALBUMIN 2.6 g/dl (3.4-5.0); AMYLASE 57 U/L (25-115); ANION GAP 8 (8-16); BILIRUBIN,TOTAL 1.9 mg/dL (0.2-1.0); CALCIUM 7.6 mg/dL (8.5-10.1); CO2 26 mmol/L (21-32); CREATININE 0.6 mg/dL (0.7-1.3); GLUCOSE,RANDOM 127 mg/dL (74-106); SGOT/AST 59 U/L (15-37); SGPT/ALT 30 U/L (12-78); TOT PROT 6.7 g/dl (6.4-8.2)
[2017-08-26 05:58] LABS: ALK PHOS 265 U/L (45-117); CPK 115 IU/L (39-308); TROPONIN I < 0.02 ng/ml (0.00-0.05)
[2017-08-26 06:08] LABS: HYPOCHROMIA 1+
[2017-08-26 06:09] LABS: ANISOCYTOSIS 1+; MICROCYTOSIS 1+
[2017-08-26 06:13] VITALS: BMI 32.5
--- NOTE | 2017-08-26 08:46 | EKG ---
Test Reason : Blood Pressure : / mmHG Vent. Rate : 074 BPM Atrial Rate : 074 BPM P-R Int : 158 ms QRS Dur : 096 ms QT Int : 410 ms P-R-T Axes : 023 039 039 degrees QTc Int : 455 ms SINUS RHYTHM WITH PREMATURE ATRIAL COMPLEXES OTHERWISE NORMAL ECG WHEN COMPARED WITH ECG OF 14-FEB-2017 11:54, PREMATURE ATRIAL COMPLEXES ARE NOW PRESENT Confirmed by SHERIN BLAKE, SHERIE ([id number]) on 08/26/2017 8:45:44 AM Referred By: Confirmed By:SHERIE DUFF MD
--- NOTE | 2017-08-26 09:17 | HP ---
CHIEF COMPLAINT: dizziness PCP: Dr. Romero HISTORY OF PRESENT ILLNESS: This is a 77 year old Syrian speaking, non compliant male presents to the ED with dizziness since this morning. Patient states that when he gets up from seated position he feels dizzy. He then called his son, who brought him to the hospital. Patient denies headache, blurry vision, chest pain, shortness of breath, fever, chills, nausea, vomiting, changes in bowel or bladder. Mr. Rios is a chronic alcoholic, drinks one pint of rum per day. His last drink was yesterday. He has a past medical history liver cirrhosis, hypertension, GERD , asthma. Cardiac workup including MIBI stress test done 11/2015, which was negative. ER course was notable for: (1)head CT evident for volume loss; no acute pathology (2)CXR cardiomegaly; sharp angles no effusion or infiltrate (3)ECG when compare to previous; NSR with PACs (4)started on banana bag and given lasix 80mg IVP Recent Travel: no PAST MEDICAL HISTORY: liver cirrhosis, gerd, htn, asthma PAST SURGICAL HISTORY: Social History: [place], at home , alone Smoking:no Alcohol:chronic daily alcohol used ; pint of rum per day Drugs: no Family History: Allergies No Known Allergies Allergy (Verified 08/26/17 04:26) HOME MEDICATIONS: Home Medications Medication Instructions Recorded Albuterol 2.5/Ipratropium 0.5 1 neb IH Q6H PRN 02/14/17 [Duoneb -] Albuterol Sulfate Inhaler - 2 inh PO Q4H PRN 02/14/17 [Ventolin HFA Inhaler -] Aspirin [ASA -] 81 mg PO DAILY 02/14/17 Budesonide/Formeterol Fumarate 2 inh PO BID 02/14/17 [SYMBICORT 160/4.5mcg -] Furosemide [Lasix] 40 mg PO ASDIR 02/14/17 Metoprolol Tartrate [Lopressor -] 25 mg PO DAILY 02/14/17 Thiamine HCl [B-1] 100 mg PO DAILY 02/14/17 Tramadol HCl [Ultram] 50 mg PO BID PRN 02/14/17 Valsartan [Diovan] 80 mg PO DAILY 02/14/17 Ascorbic Acid [Vitamin C] 100 mg PO BID #90 tablet 02/17/17 Docusate Sodium [Colace -] 100 mg PO BID #60 capsule 02/17/17 Ferrous Sulfate [Feosol] 325 mg PO TID #90 tablet 02/17/17 Prednisone 10 mg PO ASDIR #31 tablet 02/17/17 REVIEW OF SYSTEMS CONSTITUTIONAL: Positive: Dizziness Absent: fever, chills, diaphoresis, generalized weakness, malaise, loss of appetite, weight change HEENT: Absent: rhinorrhea, nasal congestion, throat pain, throat swelling, difficulty swallowing, mouth swelling, ear pain, eye pain, visual changes CARDIOVASCULAR: Absent: chest pain, syncope, palpitations, irregular heart rate, lightheadedness , peripheral edema RESPIRATORY: Absent: cough, shortness of breath, dyspnea with exertion, orthopnea, wheezing, stridor, hemoptysis GASTROINTESTINAL: Absent: abdominal pain, abdominal distension, nausea, vomiting, diarrhea, constipation, melena, hematochezia GENITOURINARY: Absent: dysuria, frequency, urgency, hesitancy, hematuria, flank pain, genital pain MUSCULOSKELETAL: Absent: myalgia, arthralgia, joint swelling, back pain, neck pain SKIN: Absent: rash, itching, pallor HEMATOLOGIC/IMMUNOLOGIC: Absent: easy bleeding, easy bruising, lymphadenopathy, frequent infections ENDOCRINE: Absent: unexplained weight gain, unexplained weight loss, heat intolerance, cold intolerance NEUROLOGIC: Absent: headache, focal weakness or paresthesias, dizziness, unsteady gait, seizure, mental status changes, bladder or bowel incontinence PSYCHIATRIC: Absent: anxiety, depression, suicidal or homicidal ideation, hallucinations. PHYSICAL EXAMINATION Vital Signs - 24 hr 08/26/17 08/26/17 08/26/17 04:22 05:29 06:18 Temperature 97 F L Pulse Rate 80 Pulse Rate [ 89 87 Left Radial] Respiratory 18 18 Rate Blood Pressure 176/102 Blood Pressure 155/87 160/89 [Left Arm] O2 Sat by Pulse 95 Oximetry (%) 08/26/17 07:19 Temperature 99.4 F Pulse Rate Pulse Rate [ 93 H Left Radial] Respiratory Rate Blood Pressure Blood Pressure 148/78 [Left Arm] O2 Sat by Pulse 98 Oximetry (%) GENERAL: Awake, alert, and fully oriented, in no acute distress. HEAD: Normal with no signs of trauma. EYES: Pupils equal, round and reactive to light, extraocular movements intact, sclera anicteric, conjunctiva clear. No lid lag. NECK: Normal range of motion, supple without lymphadenopathy, JVD, or masses. no bruits LUNGS: Breath sounds equal, clear to auscultation bilaterally. No wheezes, and no crackles. No accessory muscle use. HEART: Regular rate and extra beats, normal S1 and S2 without murmur, rub or gallop. ABDOMEN: Soft, nontender, not distended, normoactive bowel sounds, no guarding, no rebound, no masses. No hepatomegaly or splenomegaly. MUSCULOSKELETAL: Normal range of motion at all joints. No bony deformities or tenderness. No CVA tenderness. UPPER EXTREMITIES: 2+ pulses, warm, well-perfused. No cyanosis. No clubbing. bilateral 1.5 + pitting ankle edema LOWER EXTREMITIES: 2+ pulses, warm, well-perfused. No calf tenderness. No peripheral edema. NEUROLOGICAL: Cranial nerves II-XII intact. Normal speech. Normal gait. PSYCHIATRIC: Cooperative. Good eye contact. Appropriate mood and affect. SKIN: Warm, dry, normal turgor, no rashes or lesions noted, normal capillary refill. Laboratory Results - last 24 hr 08/26/17 08/26/17 08/26/17 05:00 05:00 05:00 WBC 4.2 D RBC 4.12 Hgb 9.4 L D Hct 29.8 L MCV 72.3 L MCH 22.8 L MCHC 31.6 L RDW 20.3 H D Plt Count 117 L MPV 8.6 D Neutrophils % 49.0 D Lymphocytes % 21.5 D Monocytes % 12.1 H D Eosinophils % 13.1 H D Basophils % 4.3 H D Hypochromia 1+ Anisocytosis 1+ Microcytosis 1+ PT with INR 18.00 H INR 1.59 H Sodium 141 Potassium 4.0 Chloride 107 Carbon Dioxide 26 Anion Gap 8 BUN 8 D Creatinine 0.6 L D Creat Clearance w eGFR > 60 Random Glucose 127 H Calcium 7.6 L Total Bilirubin 1.9 H AST 59 H D ALT 30 Alkaline Phosphatase 265 H D Creatine Kinase 115 Troponin I < 0.02 Total Protein 6.7 Albumin 2.6 L Total Amylase 57 Lipase 278 Urine Color Urine Appearance Urine pH Ur Specific [place] Urine Protein Urine Glucose (UA) Urine Ketones Urine Blood Urine Nitrite Urine Bilirubin Urine Urobilinogen 08/26/17 05:00 WBC RBC Hgb Hct MCV MCH MCHC RDW Plt Count MPV Neutrophils % Lymphocytes % Monocytes % Eosinophils % Basophils % Hypochromia Anisocytosis Microcytosis PT with INR INR Sodium Potassium Chloride Carbon Dioxide Anion Gap BUN Creatinine Creat Clearance w eGFR Random Glucose Calcium Total Bilirubin AST ALT Alkaline Phosphatase Creatine Kinase Troponin I Total Protein Albumin Total Amylase Lipase Urine Color [place] Urine Appearance Clear Urine pH 8.0 Ur Specific [place] 1.015 Urine Protein Negative Urine Glucose (UA) Negative Urine Ketones Negative Urine Blood Negative Urine Nitrite Negative Urine Bilirubin 1+ H Urine Urobilinogen 2.0 Current Medications Generic Name Dose Route Start Last Admin Trade Name Freq PRN Reason Stop Dose Admin Albuterol Sulfate 2 puff 08/26/17 10:23 Ventolin Hfa Inhaler - IH Q4H PRN ASTHMA Aspirin 81 mg 08/27/17 10:00 Asa - PO DAILY [facility] Budesonide/Formoterol Fumarate 2 puff 08/26/17 22:00 Symbicort 160/4.5mcg - IH BID VALENCIA Docusate Sodium 100 mg 08/26/17 22:00 Colace - PO BID [facility]1983 Ferrous Sulfate 325 mg 08/26/17 14:00 Feosol - PO TID VALENCIA Furosemide 40 mg 08/27/17 10:30 Lasix - PO Q2D@1000 VALENCIA Heparin Sodium (Porcine) 5,000 unit 08/26/17 14:00 Heparin - SQ TID VALENCIA Folic Acid 1 mg/ Thiamine HCl 1,000 mls @ 125 mls/hr 08/26/17 04:50 08/26/17 05:17 100 mg/ Multivitamins/Minerals IVPB 08/26/17 12:49 125 mls/hr 10 ml/ Sodium Chloride ONCE ONE Administration Metoprolol Tartrate 25 mg 08/27/17 10:00 Lopressor - PO DAILY VALENCIA Valsartan 80 mg 08/27/17 10:00 Diovan - PO DAILY [facility]1983 ASSESSMENT/PLAN: This is a 77 year old male with a past medical history of liver cirrhosis, htn, gerd, asthma, who is a daily alcohol user, complaining dizziness since this morning. Symptoms all resolved after banana bag given. Will admit to telemetry for cardiac monitoring. #dizziness: -may be from multiple etiology including orthostatic hypotension, dehydration secondary to alcohol use, anemia; liver; need to rule out cardiac causes. -Will get echo and carotid doppler. Patient had stress test in 2016 which was negative. -orthostatics -trend labs; follow liver function studies #microcytic anemia; -patient previous blood count reviewed; this is chronic; he previously had low iron; he is currently taking iron at home. -trend cbc; #thrombocytopenia; chronic; secondary to alcohol abuse #hypertension:stable -cont home diovan 80mg po qd; Lopressor 25mg po qd, lasix40 every other day as prescribed #chronic liver cirrhosis; -patient with elevated total bilirubin and alk phos; this is chronic , although they are slightly higher that previous; will repeat in am. -last abdominal CT done 2014; showing nodular cirrhotic liver with calcifications -ammonia level is slightly elevated, patient is not confused or disoriented #Chronic daily alcohol user: -given banana bag in ER -cont thiamine and folic acid -monitor for signs of withdrawal; last drink yesterday -counseling program leader on alcohol cessation Fluids: po intake Diet: low sodium Electrolytes wnl VTE prophylaxis: hepar in sq Disposition: admit to telemetry plan for DC pending studies (echo/carotid) Problem List - Problem (1) Anemia Code(s): D64.9 - ANEMIA, UNSPECIFIED (2) Dizziness Code(s): R42 - DIZZINESS AND GIDDINESS (3) EtOH dependence Code(s): F10.20 - ALCOHOL DEPENDENCE, UNCOMPLICATED (4) Hyperbilirubinemia Code(s): E80.6 - OTHER DISORDERS OF BILIRUBIN METABOLISM (5) Alcohol dependence with uncomplicated withdrawal Code(s): F10.230 - ALCOHOL DEPENDENCE WITH WITHDRAWAL, UNCOMPLICATED (6) Edema Code(s): R60.9 - EDEMA, UNSPECIFIED Qualifiers: Edema type: localized Qualified Code(s): R60.0 - Localized edema (7) HTN (hypertension) Code(s): I10 - ESSENTIAL (PRIMARY) HYPERTENSION Qualifiers: Hypertension type: essential hypertension Qualified Code(s): I10 - Essential (primary) hypertension Visit type - Emergency Visit Emergency Visit: Yes ED Registration Date: 08/26/17 Care time: The patient presented to the Emergency Department on the above date and was hospitalized for further evaluation of their emergent condition. - New Patient This patient is new to me today: Yes Date on this admission: 08/26/17 - Critical Care Critical Care patient: No
[2017-08-26] MEDS ORDERED: ALBUTEROL SO4 2.5/IPRATROPIUM 0.5 INH SOL 3 ML VIAL.NEB. NEB PRN (10:23)
[2017-08-26] MEDS ORDERED: ALBUTEROL SO4 18 GM HFA INHALER IH PRN (10:23)
[2017-08-26 12:29] LABS: URINE LEUK ESTERASE Negative (NEGATIVE)
[2017-08-26] MEDS: FERROUS SO4 325 MG TABLET (FP) PO SCH ×2 (14:48→21:11)
[2017-08-26] MEDS: HEPARIN NA (PORCINE) 5,000 UNITS/ML 1ML VIAL SQ SCH ×2 (14:48→21:10)
--- NOTE | 2017-08-26 18:16 | PN ---
Teaching Attending Note Name of Resident: Navya Beltran ATTENDING PHYSICIAN STATEMENT I saw and evaluated the patient. I reviewed the resident's note and discussed the case with the resident. I agree with the resident's findings and plan as documented. SUBJECTIVE:77yo M with PMH GERD, dyslipidemia, CHF, thrombocytopenia, iron def anemia, continuous ETOH dependence brought to ER by son because of dizzyness. states he was standing up and felt dizzy. has had no other symptoms and no repeated episodes of dizzyness. denies CP, SOB< fever, chills, N/V/C/D as per pt he is not complaint with home medications OBJECTIVE: Last Vital Signs Temp Pulse Resp BP Pulse Ox 99.1 F 78 20 139/68 96 08/26/17 14:00 08/26/17 14:00 08/26/17 14:00 08/26/17 14:00 08/26/17 10:35 General NAD HEENT non icteric CV S1 S2 RRR no murmur/rub/gallop no carotid bruit or JVD Lungs CTA B/L no wheezing/rales/rhonchi Abdomen soft NT/ND Extremites 2+ pitting edema ASSESSMENT AND PLAN: 77yo M with PMH GERD, dyslipidemia, CHF, thrombocytopenia, iron def anemia, continuous ETOH dependence brought to ER by son because of dizzyness. 1. Dizzyness vs pre-syncope- possible vasovagal vs arrhythmia. orthostatics negative on admission. was given lasix 80mg IVP x1. Head CT negative for acute pathology. EKG with multiple PAC. cardiac monitoring to r/o arrythmia. check carotid doppler 2. Elevated total bili- likely due to etoh cirrhosis. asymtptomatic. no jaundice. Ammonia slightly above normal but no signs of encephalopathy. will monitor for now. 3. CHF- +pedal edema. pulmonary exam lungs are clear, CXR no effusions. s/p lasix 80mg IVP x1. there are no signs of respiratory distress. will re-start home medications. fluid restriction. check echo 4. Thrombocytopenia- at baseline. no signs of bleeding 5. continuous ETOH dependence- no signs of withdrawal. will monitor for now. not interested in rehab 6. Iron def anemia- check iron studies. no signs of bleeidng. Hgb near baseline. no indication for txn 7. DVT ppx- EAM
[2017-08-26] MEDS: DOCUSATE SODIUM 100 MG CAPSULE (FP) PO SCH (21:11)
[2017-08-26] MEDS: BUDESONIDE/FORMETEROL FUMARATE 160/4.5 mcg INHALER IH SCH (23:32)
[2017-08-27] MEDS: FERROUS SO4 325 MG TABLET (FP) PO SCH ×2 (06:00→13:40)
[2017-08-27] MEDS: HEPARIN NA (PORCINE) 5,000 UNITS/ML 1ML VIAL SQ SCH ×2 (06:00→13:40)
[2017-08-27 06:44] LABS: BASOPHIL 2.5 % (0-2.0); EOSINOPHIL 11.9 % (0-4.5); MCH 22.4 pg (25.7-33.7); MEAN CELL VOLUME 72.2 fl (80-96); MEAN PLT VOLUME 8.2 fl (7.5-11.1); NEUTROPHILS 42.7 % (42.8-82.8); PLATELET COUNT 123 K/MM3 (134-434); RDW 21.1 % (11.9-15.9); WHITE BLOOD COUNT 4.6 K/mm3 (4.0-10.0)
[2017-08-27 07:06] LABS: ALBUMIN 2.7 g/dl (3.4-5.0); ANION GAP 8 (8-16); CALCIUM 7.3 mg/dL (8.5-10.1); CO2 27 mmol/L (21-32); GLUCOSE,RANDOM 102 mg/dL (74-106); MAGNESIUM 1.9 mg/dL (1.8-2.4); PHOSPHOROUS 1.9 mg/dL (2.5-4.9)
[2017-08-27 07:09] LABS: ALK PHOS 223 U/L (45-117); BILIRUBIN,TOTAL 3.9 mg/dL (0.2-1.0); CREATININE 0.7 mg/dL (0.7-1.3); SGOT/AST 50 U/L (15-37); SGPT/ALT 28 U/L (12-78); TOT PROT 6.8 g/dl (6.4-8.2)
[2017-08-27] MEDS: BUDESONIDE/FORMETEROL FUMARATE 160/4.5 mcg INHALER IH SCH (09:00)
[2017-08-27] MEDS: DOCUSATE SODIUM 100 MG CAPSULE (FP) PO SCH (09:00)
[2017-08-27] MEDS ORDERED: METOPROLOL TARTRATE 25 MG TABLET (FP) PO SCH (10:00)
[2017-08-27] MEDS ORDERED: ASPIRIN 81 MG CHEWABLE TABLETS PO SCH (10:00)
[2017-08-27] MEDS ORDERED: VALSARTAN 80 MG TABLET (UD) PO SCH (10:00)
[2017-08-27] MEDS ORDERED: FUROSEMIDE 40 MG TABLET (FP) PO SCH ×2 (10:00→10:30)
[2017-08-27] MEDS ORDERED: POTASSIUM CHLORIDE ORAL LIQUID 20 MEQ/15 ML PO ONE (14:03)
--- NOTE | 2017-08-27 14:04 | PN ---
Teaching Attending Note Name of Resident: Warner Taylor ATTENDING PHYSICIAN STATEMENT I saw and evaluated the patient. I reviewed the resident's note and discussed the case with the resident. I agree with the resident's findings and plan as documented. SUBJECTIVE:asymptomatic. no repeat episodes. Denies Cp, SOB, fever, chills, N/V/ C/D or abdominal pain OBJECTIVE: Last Vital Signs Temp Pulse Resp BP Pulse Ox 98.4 F 97 H 20 169/77 98 08/27/17 09:56 08/27/17 09:56 08/27/17 12:00 08/27/17 09:56 08/27/17 12:00 General NAD HEENT non icteric CV S1 S2 RRR no murmur/rub/gallop Lungs CTA B/L no wheezing/rales/rhonchi Abdomen soft NT/ND Extremites 2+ pitting edema ASSESSMENT AND PLAN: 77yo M with PMH GERD, dyslipidemia, CHF, thrombocytopenia, iron def anemia, continuous ETOH dependence brought to ER by son because of dizzyness. 1. Dizzyness vs near-syncope- possible vasovagal vs arrhythmia. orthostatics negative on admission. no events on cardiac montior. carotid doppler negative. awaiting echo. 2. Elevated total bili- possible due to cirrhosis. trending up. check direct bili, check liver u/s. repeat labs. pt is asymptomatic and not jaundice. consider GI eval if cont to trend up or blockage is seen 3. CHF- continues to have pedal edema. however lungs are clear. back on home dose of lasix. on betablocker/arb/statin/asa. echo pending. 4. Thrombocytopenia- at baseline. no signs of bleeding 5. continuous ETOH dependence- no signs of withdrawal. will monitor for now. not interested in rehab 6. Iron def anemia- Hgb stable. iron studies pending. no signs of bleeidng. Hgb near baseline. no indication for txn 7. Hypokalemia- Kcl po 8. Hypophosphatemia- neutraphos 9. DVT ppx- EAM 10. can d/c home pending u/s and repeat labs
--- NOTE | 2017-08-27 14:08 | PN ---
Physical Exam: SUBJECTIVE: Patient seen and examined at bedside. Patient denies any acute complaints. OBJECTIVE: Vital Signs Period Temp Pulse Resp BP Sys/Cronin Pulse Ox Last 24 Hr 98.1 F-98.8 F 75-97 20-20 141-169/66-82 97-98 GENERAL: The patient is awake, alert, and fully oriented, in no acute distress. HEAD: Normal with no signs of trauma. EYES: PERRL, extraocular movements intact, sclera anicteric, conjunctiva clear. No ptosis. ENT: Ears normal, nares patent, oropharynx clear without exudates, moist mucous membranes. NECK: Trachea midline, full range of motion, supple. LUNGS: Breath sounds equal, clear to auscultation bilaterally, no wheezes, no crackles, no accessory muscle use. HEART: Regular rate and rhythm, S1, S2 without murmur, rub or gallop. ABDOMEN: Soft, nontender, nondistended, normoactive bowel sounds, no guarding, no rebound, no hepatosplenomegaly, no masses. EXTREMITIES: 2+ pulses, warm, well-perfused, no edema. NEUROLOGICAL: Cranial nerves II through XII grossly intact. Normal speech, gait not observed. PSYCH: Normal mood, normal affect. SKIN: Warm, dry, normal turgor, no rashes or lesions noted Laboratory Results - last 24 hr 08/27/17 08/27/17 08/27/17 06:20 06:20 06:20 WBC 4.6 RBC 4.37 Hgb 9.8 L Hct 31.5 L MCV 72.2 L MCH 22.4 L MCHC 31.0 L RDW 21.1 H Plt Count 123 L MPV 8.2 Neutrophils % 42.7 L Lymphocytes % 32.0 D Monocytes % 10.9 H Eosinophils % 11.9 H Basophils % 2.5 H Sodium 140 Potassium 3.3 L Chloride 105 Carbon Dioxide 27 Anion Gap 8 BUN 10 D Creatinine 0.7 Creat Clearance w eGFR > 60 Random Glucose 102 Calcium 7.3 L Phosphorus 1.9 L D Magnesium 1.9 Ferritin 10.925 L Total Bilirubin 3.9 H D Direct Bilirubin AST 50 H ALT 28 Alkaline Phosphatase 223 H Total Protein 6.8 Albumin 2.7 L 08/27/17 06:20 WBC RBC Hgb Hct MCV MCH MCHC RDW Plt Count MPV Neutrophils % Lymphocytes % Monocytes % Eosinophils % Basophils % Sodium Potassium Chloride Carbon Dioxide Anion Gap BUN Creatinine Creat Clearance w eGFR Random Glucose Calcium Phosphorus Magnesium Ferritin Total Bilirubin Direct Bilirubin 1.9 H AST ALT Alkaline Phosphatase Total Protein Albumin Active Medications Generic Name Dose Route Start Last Admin Trade Name Clary PRN Reason Stop Dose Admin Albuterol Sulfate 2 puff 08/26/17 10:23 Ventolin Hfa Inhaler - IH Q4H PRN ASTHMA Aspirin 81 mg 08/27/17 10:00 08/27/17 09:00 Asa - PO 81 mg DAILY VALENCIA Administration Budesonide/Formoterol Fumarate 2 puff 08/26/17 22:00 08/27/17 09:00 Symbicort 160/4.5mcg - IH 2 puff BID VALENCIA Administration Docusate Sodium 100 mg 08/26/17 22:00 08/27/17 09:00 Colace - PO 100 mg BID VALENCIA Administration Ferrous Sulfate 325 mg 08/26/17 14:00 08/27/17 13:40 Feosol - PO 325 mg TID VALENCIA Administration Furosemide 40 mg 08/27/17 10:00 08/27/17 09:00 Lasix - PO 40 mg DAILY VALENCIA Administration Heparin Sodium (Porcine) 5,000 unit 08/26/17 14:00 08/27/17 13:40 Heparin - SQ 5,000 unit TID VALENCIA Administration Metoprolol Tartrate 25 mg 08/27/17 10:00 08/27/17 09:00 Lopressor - PO 25 mg DAILY VALENCIA Administration Potassium Chloride 40 meq 08/27/17 14:03 Potassium Chloride Oral Liquid PO 08/27/17 14:04 ONCE ONE Valsartan 80 mg 08/27/17 10:00 08/27/17 09:00 Diovan - PO 80 mg DAILY VALENCIA Administration ASSESSMENT/PLAN: This is a 77 year old male with a past medical history of liver cirrhosis, htn, gerd, asthma, who is a daily alcohol user, complaining dizziness since this morning. Symptoms all resolved after banana bag given. Will admit to telemetry for cardiac monitoring. #Dizziness: resolved -orthostatics negative -follow liver function studies #Hyperbilirubinemia: t bili 3.9, direct bilirubin 1.9 -no abdominal complaints -liver us shows no new pathology, same cirrhosis picture as before #Microcytic Anemia: -patient previous blood count reviewed; this is chronic; he previously had low iron; he is currently taking iron at home. -trend cbc; #Thrombocytopenia: -chronic; secondary to alcohol abuse #Hypertension: stable -cont home diovan 80mg po qd; Lopressor 25mg po qd, lasix40 every other day as prescribed #chronic liver cirrhosis: no acute -patient with elevated total bilirubin and alk phos; this is chronic , although they are slightly higher that previous; will repeat in am. -last abdominal CT done 2014; showing nodular cirrhotic liver with calcifications -ammonia level is slightly elevated, patient is not confused or disoriented #Alcohol Abuse -monitor for signs of alcohol withdrawal FEN Nutrition: po intake Electrolytes: wnl Fluids: No standing fluids Prophylaxis: -Heparin subq 5000 BID Disposition: -Monitor patient on med surg, potential DC today Visit type - Emergency Visit Emergency Visit: No - New Patient This patient is new to me today: Yes Date on this admission: 08/27/17 - Critical Care Critical Care patient: No
[2017-08-27 17:25] VITALS: BP 138/68; PULSE 76; TEMP 98.5
[2017-08-27 18:15] LABS: ALBUMIN 2.9 g/dl (3.4-5.0); ALK PHOS 218 U/L (45-117); ANION GAP 11 (8-16); BILIRUBIN,TOTAL 3.7 mg/dL (0.2-1.0); CALCIUM 8.3 mg/dL (8.5-10.1); CO2 27 mmol/L (21-32); CREATININE 0.9 mg/dL (0.7-1.3); GLUCOSE,RANDOM 182 mg/dL (74-106); LDH 244 U/L (87-241); SGOT/AST 53 U/L (15-37); SGPT/ALT 30 U/L (12-78); TOT PROT 7.2 g/dl (6.4-8.2)
[2017-08-28 06:06] LABS: SERUM IRON 100 ug/dL (38-169); TOTAL IRON BINDING CAPACITY 319 ug/dL (250-450); UIBC 219 ug/dL (111-343)
== END 2017-08-27 19:55 | disposition home or self-care (01) ==
LOC: JER 04:17 → INTOOBSV 07:28 → JERBED 07:28 → UNDOADMIN 07:31 → JERBED 07:31 → J4W 12:09
PROVIDERS: ADMIT Internal Medicine; ATTEND Internal Medicine
PROC: 3E033GC Introduction of Other Therapeutic Substance into Peripheral Vein, Percutaneous Approach (ICD-10-PCS; principal; 2017-08-26)
PROC: 3E0F7GC Introduction of Other Therapeutic Substance into Respiratory Tract, Via Natural or Artificial Opening (ICD-10-PCS; 2017-08-26)
DX: F10.20 Alcohol dependence, uncomplicated (principal); E80.6 Other disorders of bilirubin metabolism; K70.30 Alcoholic cirrhosis of liver without ascites; I10 Essential (primary) hypertension; K21.9 Gastro-esophageal reflux disease without esophagitis; R60.0 Localized edema; E87.6 Hypokalemia; D50.9 Iron deficiency anemia, unspecified
CPT/HCPCS: 36415; 70450-TC; 71020-TC; 76700-TC; 80053; 81003; 82140; 82150; 82248; 82550; 82728; 83540; 83550; 83615; 83690; 83735; 84100; 84484; 85025; 85610; 93005; 93010; 93306-TC; 93880-TC; 94640; 96365; 96366; 99285-25; G0378; J1644

== ENCOUNTER 2017-09-25 08:50 | Emergency (ER) | payer MEDICARE, OTHER ==
[2017-09-25 09:05] VITALS: BP 146/78; PULSE 74; TEMP 97.9; BMI 30.9
[2017-09-25] MEDS ORDERED: ALBUTEROL SO4 2.5/IPRATROPIUM 0.5 INH SOL 3 ML VIAL.NEB. NEB ONE ×2 (09:20→09:22)
--- NOTE | 2017-09-25 09:29 | PDOC ---
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 This morning when his home health aide arrived at his home she noticed he had a moist productive cough which prompted her to take him to the emergency department. No fever, no nausea vomiting or diarrhea, no hemoptysis, no chest pain or shortness of breath, no arm or back pain.] Past Medical History: [Denies]. Allergies: No known allergies Medications: [See Medication list] Family History: Non-contributory Social History: Denies smoking, alcohol use, or IVDU Review of Systems GENERAL/CONSTITUTIONAL: [No fever or chills. No weakness. No weight change.] HEAD, EYES, EARS, NOSE AND THROAT: [No change in vision. No ear pain or discharge. No sore throat. ] CARDIOVASCULAR: [No chest pain or shortness of breath.] RESPIRATORY: [Moist productive cough, + wheezing, no hemoptysis.] GASTROINTESTINAL: [No nausea, vomiting, diarrhea or constipation. No rectal bleeding.] GENITOURINARY: [No dysuria, frequency, or change in urination.] MUSCULOSKELETAL: [No joint or muscle swelling or pain. No neck or back pain.] SKIN AND BREASTS: [No rash or easy bruising.] NEUROLOGIC: [No headache, vertigo, loss of consciousness, or loss of sensation.] PSYCHIATRIC: [No depression or anxiety.] ENDOCRINE: [No increased thirst. No abnormal weight change.] HEMATOLOGIC/LYMPHATIC: [No anemia, easy bleeding, or history of blood clots.] ALLERGIC/IMMUNOLOGIC: [No hives or skin allergy. No latex allergy.] Physical Exam: GENERAL: [The patient is awake, alert, and fully oriented, in no acute distress. ] HEAD: [Normal with no signs of trauma.] EYES: [Pupils equal, round and reactive to light, extraocular movements intact, sclera anicteric, conjunctiva clear.] ENT: [Ears normal, nares patent, oropharynx clear without exudates. Moist mucous membranes. No uvula deviation] NECK: [Normal range of motion, supple without lymphadenopathy, JVD, or masses.] LUNGS: [Breath sounds equal, clear to auscultation bilaterally. Expiratory wheezes, no rhonchi and no crackles.] HEART: [Regular rate and rhythm, normal S1 and S2 without murmur, rub or gallop. ] ABDOMEN: [Soft, nontender, normoactive bowel sounds. No guarding, no rebound. No masses. No bruising or abrasions] MUSCULOSKELETAL: [Normal range of motion, no edema. No clubbing or cyanosis. No cords, erythema, or tenderness. No CVA Tenderness with fist.] NEUROLOGICAL: [Cranial nerves II through XII grossly intact. Normal speech, normal gait.] SKIN: [Warm, Dry, normal turgor, no rashes or lesions noted.] Past History - Past Medical History Allergies/Adverse Reactions: Allergies Allergy/AdvReac Type Severity Reaction Status Date / Time No Known Allergies Allergy Verified 09/25/17 09:01 Home Medications: Ambulatory Orders Albuterol 2.5/Ipratropium 0.5 [Duoneb -] 1 neb IH Q6H PRN 02/14/17 Albuterol Sulfate Inhaler - [Ventolin HFA Inhaler -] 2 inh PO Q4H PRN 02/14/17 Aspirin [ASA -] 81 mg PO DAILY 02/14/17 Budesonide/Formeterol Fumarate [SYMBICORT 160/4.5mcg -] 2 inh PO BID 02/14/17 Furosemide [Lasix] 40 mg PO ASDIR 02/14/17 Metoprolol Tartrate [Lopressor -] 25 mg PO DAILY 02/14/17 Thiamine HCl [B-1] 100 mg PO DAILY 02/14/17 Tramadol HCl [Ultram] 50 mg PO BID PRN 02/14/17 Valsartan [Diovan] 80 mg PO DAILY 02/14/17 Ascorbic Acid [Vitamin C] 100 mg PO BID #90 tablet 02/17/17 Docusate Sodium [Colace -] 100 mg PO BID #60 capsule 02/17/17 Ferrous Sulfate [Feosol] 325 mg PO TID #90 tablet 02/17/17 Azithromycin [Zithromax 250mg Tablets -] 250 mg PO UTDICT #6 tab 09/25/17 Anemia: No Asthma: Yes Cancer: No Cardiac Disorders: No CVA: No COPD: Yes CHF: No Dementia: No Diabetes: No GI Disorders: Yes (ACID REFLUX) Disorders: Yes (OVERACT BLADDER) HTN: Yes Hypercholesterolemia: Yes Liver Disease: Yes (CIRRHOSIS,FATTY LIVER) Seizures: No Thyroid Disease: No - Surgical History Abdominal Surgery: Yes Appendectomy: No Cardiac Surgery: No Cholecystectomy: No Lung Surgery: No Neurologic Surgery: No Orthopedic Surgery: Yes (R LEG ORIF) - Immunization History Immunization Up to Date: Yes - Suicide/Smoking/Psychosocial Hx Smoking History: Never smoked Have you smoked in the past 12 months: No Number of Cigarettes Smoked Daily: 0 Cigars Per Day: 0 Hx Alcohol Use: Yes (NO ALCOHOL NOW) Drug/Substance Use Hx: Yes Substance Use Type: Alcohol Hx Substance Use Treatment: No *Physical Exam - Vital Signs Last Vital Signs Temp Pulse Resp BP Pulse Ox 97.9 F 74 18 146/78 96 09/25/17 09:02 09/25/17 09:02 09/25/17 09:02 09/25/17 09:02 09/25/17 09:02 ED Treatment Course - Medications Given in the ED: ED Medications Discontinued Medications Generic Name Dose Route Start Last Admin Trade Name Freq PRN Reason Stop Dose Admin Albuterol/Ipratropium 1 amp 09/25/17 09:20 09/25/17 09:23 Duoneb - NEB 09/25/17 09:21 1 amp ONCE ONE Administration Medical Decision Making - Medical Decision Making 09/25/17 09:28 A/P: Patient to emergency department for evaluation of cough, home health aide noticed the patient had a cough this morning which prompted her to bring him to the emergency department patient reports cough is productive, unable to describe color of sputum patient denies any chest pain or shortness of breath does have history of asthma. EKG was performed in triage, Twelve-lead EKG was performed and reviewed by me. There is normal sinus rhythm with a normal rate. The axis is normal. The intervals are normal. There are no ST or T wave abnormalities. Impression: Normal twelve-lead EKG Combivent treatment given, will DC patient home on azithromycin, follow-up with PMD I discussed the physical exam findings, ancillary test results and final diagnoses with the patient. I answered all of the patient's questions. The patient was satisfied with the care received and felt comfortable with the discharge plan and treatment plan. The patient will call to arrange follow-up and will return to the Emergency Department with any new, persistant or worsening symptoms. *DC/Admit/Observation/Transfer Diagnosis at time of Disposition: Bronchitis - Discharge Dispostion Disposition: HOME Condition at time of disposition: Stable Admit: No - Prescriptions Prescriptions: Azithromycin [Zithromax 250mg Tablets -] 250 mg PO UTDICT #6 tab - Referrals Referrals: Lis Flores MD [Primary Care Provider] - - Patient Instructions Printed Discharge Instructions: DI for Viral Upper Respiratory Infection -- Adult Additional Instructions: Continue albuterol as needed, azithromycin, follow-up with PMD in 3 days if symptoms persist. If Any chest pain, shortness of breath or other concerns return to ER - Post Discharge Activity
--- NOTE | 2017-09-26 09:37 | EKG ---
Test Reason : Blood Pressure : / mmHG Vent. Rate : 075 BPM Atrial Rate : 075 BPM P-R Int : 156 ms QRS Dur : 098 ms QT Int : 420 ms P-R-T Axes : 037 042 038 degrees QTc Int : 469 ms NORMAL SINUS RHYTHM WITH SINUS ARRHYTHMIA NORMAL ECG Confirmed by MD Karri, Link ([id number]) on 09/26/2017 9:36:43 AM Referred By: Confirmed By:Link Zeng MD
== END 2017-09-25 09:34 | disposition home or self-care (01) ==
LOC: JERFT 08:50
PROC: 3E0F7GC Introduction of Other Therapeutic Substance into Respiratory Tract, Via Natural or Artificial Opening (ICD-10-PCS; principal; 2017-09-25)
DX: J20.9 Acute bronchitis, unspecified (principal); I10 Essential (primary) hypertension; J45.909 Unspecified asthma, uncomplicated; J44.9 Chronic obstructive pulmonary disease, unspecified; E78.00 Pure hypercholesterolemia, unspecified; K76.0 Fatty (change of) liver, not elsewhere classified
CPT/HCPCS: 93005; 93010; 94640; 99281-25

== ENCOUNTER 2018-12-07 22:11 | Emergency (ER) | payer OTHER ==
[2018-12-07 22:22] VITALS: BMI 30.4
--- NOTE | 2018-12-07 23:11 | PDOC ---
Attending Attestation - HPI HPI: 12/07/18 23:52 The patient is a 78 year old male, with a significant PMH of EtOH abuse, hypertension, hyperlipidemia, CHF, cirrhosis, GERD, asthma, anemia, cataracts, who presents to the emergency department with right arm pain and shaking. The patient states his last alcoholic intake was at 9pm evening where he drank 2 pints of rum. The patient states he does not want detox at this time. The patient denies chest pain, shortness of breath, headache and dizziness. Denies fever, chills, nausea, vomit, diarrhea and constipation. Denies dysuria, frequency, urgency and hematuria. Allergies: NKA Documentation prepared by Clinton Clark, acting as medical office assistant for Lilo Waller MD. - Physicial Exam PE: 12/07/18 23:53 GENERAL: (+) Tremulus. Awake, alert, and fully oriented, in no acute distress HEAD: No signs of trauma EYES: PERRLA, EOMI, sclera anicteric, conjunctiva clear ENT: Auricles normal inspection, hearing grossly normal, nares patent, oropharynx clear without exudates. Moist mucosa NECK: Normal ROM, supple, no lymphadenopathy, JVD, or masses LUNGS: Breath sounds equal, clear to auscultation bilaterally. No wheezes, and no crackles HEART: (+) Tachycardic. Regular rhythm, normal S1 and S2, no murmurs, rubs or gallops ABDOMEN: Soft, nontender, normoactive bowel sounds. No guarding, no rebound. No masses EXTREMITIES: Normal range of motion, no edema. No clubbing or cyanosis. No cords, erythema, or tenderness NEUROLOGICAL: Cranial nerves II through XII grossly intact. Normal speech. SKIN: Warm, Dry, normal turgor, no rashes or lesions noted. <Clinton Clark - Last Filed: 12/07/18 23:52> - Resident Resident Name: Cinthya Fuchs - ED Attending Attestation I have performed the following: I have examined & evaluated the patient, The case was reviewed & discussed with the resident, I agree w/resident's findings & plan - Medical Decision Making 12/08/18 00:35 Pt's CBC is normal. chem demonstrates elevated alk phos - in keeping with old results. Pt has creatinine of 800+, higher than his usual 200s 12/08/18 00:45 Pt's alcohol level is 214. 12/08/18 05:42 2nd cardiac enzyme is normal. 12/08/18 06:32 D/C HOME <Lilo Waller - Last Filed: 12/08/18 06:32>
--- NOTE | 2018-12-07 23:12 | PDOC ---
History of Present Illness - General Chief Complaint: Pain, Acute Stated Complaint: RIGHT ARM PAIN Time Seen by Provider: 12/07/18 23:00 - History of Present Illness Initial Comments: Nam Rios is a 78yo man with a PMH of HTN, HLD, CHF, cirrhosis, GERD, asthma, anemia, cataracts, h/o alcohol abuse (remote per previous notes) who presents reporting left shoulder pain. He states that it has now resolved, and he also notes that he has been drinking today. He was interviewed with a phone forging press operator, but he is a poor historian and has difficulty answering questions. Mr Rios reports that he had left shoulder pain starting at some point before today, though he is unable to clarify as he says that he has been drinking excessively. He states that he had 2 pints of rum today and "a lot" yesterday. He says that today he decided to quit drinking. He is unable to provide any details about the shoulder pain other than that it is now gone and he feels that he should go home. Mr Rios does deny any chest pain, SOB, lightheadedness, nausea/vomiting with the shoulder pain. He denies any recent falls. He denies any history of alcohol withdrawal symptoms including tremors, seizure, or hallucinations. Past History - Past Medical History Allergies/Adverse Reactions: Allergies Allergy/AdvReac Type Severity Reaction Status Date / Time No Known Allergies Allergy Verified 01/11/18 03:51 Home Medications: Ambulatory Orders Albuterol 2.5/Ipratropium 0.5 [Duoneb -] 1 neb IH Q6H PRN 02/14/17 Albuterol Sulfate Inhaler - [Ventolin HFA Inhaler -] 2 inh PO Q4H PRN 02/14/17 Budesonide/Formeterol Fumarate [SYMBICORT 160/4.5mcg -] 2 inh PO BID 02/14/17 Furosemide [Lasix] 40 mg PO ASDIR 02/14/17 Metoprolol Tartrate [Lopressor -] 25 mg PO DAILY 02/14/17 Thiamine HCl [B-1] 100 mg PO DAILY 02/14/17 Valsartan [Diovan] 80 mg PO DAILY 02/14/17 Ascorbic Acid [Vitamin C] 100 mg PO BID #90 tablet 02/17/17 Docusate Sodium [Colace -] 100 mg PO BID #60 capsule 02/17/17 Ferrous Sulfate [Feosol] 325 mg PO TID #90 tablet 02/17/17 Penicillin V Potassium [Pen Vee K -] 500 mg PO BID 5 Days #10 tablet 01/11/18 Anemia: No Asthma: Yes Cancer: No Cardiac Disorders: No CVA: No COPD: Yes CHF: No Dementia: No Diabetes: No GI Disorders: Yes (ACID REFLUX) Disorders: Yes (OVERACT BLADDER) HTN: Yes Hypercholesterolemia: Yes Liver Disease: Yes (CIRRHOSIS,FATTY LIVER) Seizures: No Thyroid Disease: No - Surgical History Abdominal Surgery: Yes Appendectomy: No Cardiac Surgery: No Cholecystectomy: No Lung Surgery: No Neurologic Surgery: No Orthopedic Surgery: Yes (R LEG ORIF) - Immunization History Immunization Up to Date: Yes - Suicide/Smoking/Psychosocial Hx Smoking History: Smoker current status UNK Have you smoked in the past 12 months: No Number of Cigarettes Smoked Daily: 0 Cigars Per Day: 0 Hx Alcohol Use: No Drug/Substance Use Hx: No Substance Use Type: Alcohol Hx Substance Use Treatment: No Review of Systems - Review of Systems Comments:: Poor historian, could not accurately obtain. *Physical Exam - Vital Signs Last Vital Signs Temp Pulse Resp BP Pulse Ox 98 F 119 H 20 197/97 H 97 12/07/18 22:19 12/07/18 22:19 12/07/18 22:19 12/07/18 22:19 12/07/18 22:19 - Physical Exam Comments: General: Tremulous, mild HEENT: PERRL, EOMI, MMM, voice normal, normal neck ROM, no LAD Cards: RRR, no murmur appreciated Pulm: Comfortable on room air, clear to auscultation bilaterally Abd: Soft, nontender, nondistended : No CVA tenderness Ext: Atraumatic. No LE edema. ROM intact. Vasc: Extremities WWP. Skin: Normal color, no rashes or lesions Neuro: A&Ox3, CN grossly intact, mumbling v slurred speech, motor/sensory grossly intact and symmetric, gross tremor in b/l hands and head Psych: Mood appropriate to situation Moderate Sedation - Procedure Monitoring Vital Signs: Procedure Monitoring Vital Signs Temperature 98 F 12/07/18 22:19 Pulse Rate 119 H 12/07/18 22:19 Respiratory Rate 20 12/07/18 22:19 Blood Pressure 197/97 H 12/07/18 22:19 O2 Sat by Pulse Oximetry (%) 97 12/07/18 22:19 ED Treatment Course - LABORATORY CBC & Chemistry Diagram: 12/07/18 23:20 12/07/18 23:20 Medical Decision Making - Medical Decision Making 12/07/18 23:12 Nam Rios is a 78yo man with a PMH of HTN, HLD, CHF, cirrhosis, GERD, asthma, anemia, cataracts, h/o alcohol abuse (remote per previous notes) who presents stating that he quit drinking today. He states that he came to the ED for left shoulder pain but says he feels better now. Tachycardic and hypertensive on arrival - CBC, chemistry, alcohol level sent for evaluation - Tachycardic and tremulous. Ativan for possible withdrawal 12/08/18 00:05 - Mr Rios interviewed at length with an forging press operator. Unclear chief complaint. Could not specify when his shoulder pain started or what it felt like. Stated that it started yesterday, then said it may have been a few days but he was drinking and cannot remember. He denies any associated symptoms including chest pain, SOB, nausea, lightheadedness, or diaphoresis. - Continues to be tachycardic - Following discussion with Dr Waller, ACS workup ordered 12/08/18 01:10 - Labs reviewed. Trop negative. Notable for CK 835, CK-MB 8.5 - Will repeat trop if pt agrees to stay. Continues to state that he feels better and "promises to stop drinking now" - Repeat vitals with SBP 115, HR 90. 12/08/18 06:02 - Repeat trop negative - Plan to d/c home. Recommending detox. Discussed with Dr Waller. Cinthya Fuchs PGY1 *DC/Admit/Observation/Transfer Diagnosis at time of Disposition: Left shoulder pain, Alcohol intoxication - Discharge Dispostion Disposition: HOME Condition at time of disposition: Stable Decision to Admit order: No - Referrals Referrals: [facility] [Provider Group] - Patient Instructions Printed Discharge Instructions: DI for Alcohol Abuse Additional Instructions: Discharge Instructions: You were seen in the ER for left shoulder pain. You had blood tests completed, and these were all normal. You also had a cardiac (heart) workup including an EKG and blood tests. Your blood pressure was very high when you were first seen , but this improved with medications. These were also normal. You were found to be intoxicated with alcohol. Home Care and Follow Up: - Continue to take all your home medications as previously prescribed - It is strongly recommended that you follow up with alcohol detox or rehab. You could consider [facility] at [address] in [place]. You may present for intake examination without any referral; it is OK to just show up there. - [place] [facility] [facility] [place] you need to establish care with a regular doctor. Make an appointment to be seen in the next 2-3 days. - Seek immediate medical care if you have any medical emergency including chest pain, difficulty breathing, facial droop, any fall or head injury, you become confused, or you are unusually sleepy (even if you do not remember falling). Instrucciones de descarga: Usted fue visto en la nickie de emergencias por dolor en el hombro trevor. Se le realizaron anlisis de sid y todos eleuterio normales. Tambin tuvo un examen cardaco (corazn) que incluy un electrocardiograma y pruebas de sid. Rea presin arterial era muy nacho cuando fue visto por primera vez, mila esto mejor con los medicamentos. Estos tambin eleuterio normales. Te encontraron intoxicado con alcohol. Atencin domiciliaria y seguimiento: - Continuar tomando todos los medicamentos de rea casa emy se prescribi anteriormente. - Se recomienda encarecidamente que realice un seguimiento con desintoxicacin o rehabilitacin de alcohol. Podra considerar [facility] en [address] en [place]. Usted puede presentarse para el examen de admisin sin ninguna referencia; Est simin simplemente aparecer all. - Rodriguez sido referido a la clnica de medicina de [facility] si necesita establecer atencin con un mdico aviles. Franck christopher nikki para ser visto en los prximos 2-3 richardson. - Busque atencin mdica inmediata si tiene alguna emergencia mdica que incluya dolor en el pecho, dificultad para respirar, cada facial, alguna cada o lesin en la tammy, se sienta confundido o si tiene sueo inusual (incluso si no recuerda esme cado). Print Language: DANISH - Post Discharge Activity
[2018-12-07 23:38] LABS: BASO % 3.7 % (0-2.0); EOS % 3.5 % (0-4.5); HEMATOCRIT 41.2 % (35.4-49); HEMOGLOBIN 14.4 GM/dL (11.7-16.9); LYMPH % 28.6 % (8-40); MCH 29.7 pg (25.7-33.7); MCHC 34.9 g/dl (32.0-35.9); MEAN CELL VOLUME 84.9 fl (80-96); NEUT % 55.2 % (42.8-82.8); PLATELET COUNT 93 K/MM3 (134-434); RBC 4.86 M/mm3 (4.00-5.60); RDW 21.4 % (11.9-15.9); WHITE BLOOD COUNT 4.7 K/mm3 (4.0-10.0)
[2018-12-07] MEDS ORDERED: chlordiazePOXIDE HCL 25 MG CAPSULE PO ONE (23:46)
[2018-12-07] MEDS ORDERED: LABETALOL HCL 100 MG TABLET (FP) PO ONE (23:46)
[2018-12-08 00:05] LABS: ANISOCYTOSIS 2+; MACROCYTOSIS 1+; PLATELET ESTIMATE DECREASED
[2018-12-08 00:11] LABS: ALBUMIN 3.2 g/dl (3.4-5.0); ALK PHOS 212 U/L (45-117); ANION GAP 12 MMOL/L (8-16); BILIRUBIN,TOTAL 4.8 mg/dL (0.2-1); BLOOD UREA NITROGEN 10 mg/dL (7-18); CALCIUM 7.8 mg/dL (8.5-10.1); CHLORIDE 107 mmol/L (98-107); CO2 25 mmol/L (21-32); CREATININE 0.8 mg/dL (0.55-1.3); GLUCOSE,RANDOM 121 mg/dL (74-106); POTASSIUM 3.5 mmol/L (3.5-5.1); SGOT/AST 116 U/L (15-37); SGPT/ALT 57 U/L (13-61); SODIUM 144 mmol/L (136-145); TOT PROT 7.8 g/dl (6.4-8.2)
[2018-12-08] MEDS ORDERED: chlordiazePOXIDE HCL 25 MG CAPSULE ONE (00:23)
[2018-12-08] MEDS ORDERED: LABETALOL HCL 100 MG TABLET (FP) ONE (00:24)
[2018-12-08] MEDS ORDERED: LORazepam 2 MG/ML SDV VIAL ONE (00:24)
[2018-12-08] MEDS ORDERED: SODIUM CHLORIDE 0.9% 500 ML INFUS.BAG IV ONE (00:52)
[2018-12-08 03:53] VITALS: BP 96/56; PULSE 85; TEMP 98.2
--- NOTE | 2018-12-08 11:05 | EKG ---
Test Reason : Blood Pressure : / mmHG Vent. Rate : 091 BPM Atrial Rate : 091 BPM P-R Int : 166 ms QRS Dur : 100 ms QT Int : 416 ms P-R-T Axes : 006 016 010 degrees QTc Int : 511 ms NORMAL SINUS RHYTHM PROLONGED QT ABNORMAL ECG WHEN COMPARED WITH ECG OF 25-SEP-2017 08:55, NONSPECIFIC T WAVE ABNORMALITY NOW EVIDENT IN INFERIOR LEADS Confirmed by MD LORAINE, JOVAN ([id number]) on 12/08/2018 11:05:09 AM Referred By: Confirmed By:JOVAN BARON MD
== END 2018-12-08 07:30 | disposition home or self-care (01) ==
LOC: JER 22:11
DX: M25.512 Pain in left shoulder (principal); F10.120 Alcohol abuse with intoxication, uncomplicated; Y90.7 Blood alcohol level of 200-239 mg/100 ml; I11.0 Hypertensive heart disease with heart failure; I50.9 Heart failure, unspecified; E78.5 Hyperlipidemia, unspecified; K21.9 Gastro-esophageal reflux disease without esophagitis; J45.909 Unspecified asthma, uncomplicated; J44.9 Chronic obstructive pulmonary disease, unspecified; K74.60 Unspecified cirrhosis of liver
CPT/HCPCS: 36415; 71046-TC-FY; 80053; 80307; 82550; 82553; 84484; 85025; 93005; 93010; 99282-25

== ENCOUNTER 2019-11-05 09:07 | Inpatient (IN) | payer OTHER ==
--- NOTE | 2019-11-05 10:44 | PDOC ---
Documentation entered by Mirella Nicholas SCRIBE, acting as scribe for Ariana Sanchez MD. Ariana Sanchez MD: This documentation has been prepared by the Yu wayne Nirvannie, SCRIBE, under my direction and personally reviewed by me in its entirety. I confirm that the documentation accurately reflects all work, treatment, procedures, and medical decision making performed by me. History of Present Illness - General Chief Complaint: Pain, Acute Stated Complaint: PAIN Time Seen by Provider: 11/05/19 10:18 History Source: Patient Exam Limitations: No Limitations - History of Present Illness Initial Comments: 11/05/19 11:15 The patient is a 79 year old male, with a significant past medical history of GERD, hyperlipidemia, asthma, hypertension, cataract is his left eye, CHF, COPD , thrombocytopenia, and alcohol cirrhosis/abuse (per EMR), who presents to the emergency department with 1 month of difficulty tolerating solids and liquids with 1 day of generalized weakness. They describe his intolerance as a gagging sensation whenever attempting to eat or drink. As per patient and family at bedside, the patient has been experiencing difficulty tolerating both liquids and solids for the past month thus was evaluated at [facility] ER 10/30 for his symptoms, discharged on Decadron, advised to have GI followup, and possible endoscopy. Patient has a pending appointment with Dr. Horn 11/26 but, today he woke up increasingly weak, prompting their arrival to the ED. He denies any recent fevers, chills, headache or dizziness. He denies any recent black or bloody stools, diarrhea or constipation. He denies any recent palpitations or shortness of breath. He denies any recent dysuria, frequency, urgency or hematuria. Allergies: NKA Primary Care Physician: Stormy Zuniga FNP Past History - Past Medical History Allergies/Adverse Reactions: Allergies Allergy/AdvReac Type Severity Reaction Status Date / Time No Known Allergies Allergy Verified 11/05/19 09:21 Home Medications: Ambulatory Orders Famotidine [Pepcid] 20 mg PO DAILY 11/05/19 Meclizine HCl 25 mg PO BID 11/05/19 Pantoprazole Sodium 40 mg PO DAILY 11/05/19 Valsartan 320 mg PO DAILY 11/05/19 Anemia: No Asthma: Yes Cancer: No Cardiac Disorders: No CVA: No COPD: Yes CHF: No Dementia: No Diabetes: No GI Disorders: Yes (ACID REFLUX) Disorders: Yes (OVERACT BLADDER) HTN: Yes Hypercholesterolemia: Yes Liver Disease: Yes (CIRRHOSIS,FATTY LIVER) Seizures: No Thyroid Disease: No - Surgical History Abdominal Surgery: Yes Appendectomy: No Cardiac Surgery: No Cholecystectomy: No Lung Surgery: No Neurologic Surgery: No Orthopedic Surgery: Yes (R LEG ORIF) - Immunization History Immunization Up to Date: Yes - Psycho Social/Smoking Cessation Hx Smoking History: Never smoked Have you smoked in the past 12 months: No Number of Cigarettes Smoked Daily: 0 Cigars Per Day: 0 Hx Alcohol Use: No Drug/Substance Use Hx: No Substance Use Type: Alcohol Hx Substance Use Treatment: No Review of Systems - Review of Systems Able to Perform ROS?: Yes Comments:: 11/05/19 11:16 GENERAL/CONSTITUTIONAL: No fever or chills. No weakness. HEAD, EYES, EARS, NOSE AND THROAT: No change in vision. No ear pain or discharge. No sore throat. CARDIOVASCULAR: No chest pain or shortness of breath. RESPIRATORY: No cough, wheezing, or hemoptysis. GASTROINTESTINAL: +Solid and liquid intolerance. No diarrhea or constipation. GENITOURINARY: No dysuria, frequency, or change in urination. MUSCULOSKELETAL: No joint or muscle swelling or pain. No neck or back pain. SKIN: No rash NEUROLOGIC: No headache, vertigo, loss of consciousness, or change in strength/ sensation. ENDOCRINE: No increased thirst. No abnormal weight change. HEMATOLOGIC/LYMPHATIC: No anemia, easy bleeding, or history of blood clots. ALLERGIC/IMMUNOLOGIC: No hives or skin allergy. *Physical Exam - Vital Signs Last Vital Signs Temp Pulse Resp BP Pulse Ox 98.8 F 89 16 172/80 H 97 11/05/19 09:18 11/05/19 09:18 11/05/19 09:18 11/05/19 09:18 11/05/19 09:18 - Physical Exam 11/05/19 10:43 awake alert lungs clear bilat heart rrr no mrg abd soft nt nd ext wwp. no edema. no calf tenderness. ED Treatment Course - LABORATORY CBC & Chemistry Diagram: 11/05/19 12:00 11/05/19 12:00 Medical Decision Making - Medical Decision Making 11/05/19 10:39 79 yo male h/o cirhosis, etoh abuse, copd, htn hld, here wtih progressive dysphagia. pt states he was having difficulty with liquids, not can not tolerate liquids or solids. was seen in [facility] ED on 10/30. had ct chest without contrast. - foreign body not seen no pathology noted. was dc home and given outpt follow up with GI dr Horn. states had appointment scheduled for november. today pt began feeling weak, sxs progressively getting worse, denies cp. does have back pain intermittently. generalized weakness. no change to stool, much less because not eating anything. denies weight loss. no h/o tobacco use. differential plan repeat labs r/o electorlyte abnormality consider soft tissue neck ct. will likely require admission r/o stricture, lesion barium swallow will liklely require admission for failure to tolerate PO. 11/05/19 10:44 11/05/19 16:[address] neck show mild dilation lower portion of upper esophagus, ct a/p with concerns for ossible portal vein abnoramlity recommend us. pt with intractable vomiting cant tolerate po will likley require endoscopy while admitted. GI consulted. Discharge - Discharge Information Problems reviewed: Yes Clinical Impression/Diagnosis: Dysphagia, Vomiting - Admission Yes - Follow up/Referral Referrals: Stormy Zuniga MD [Primary Care Provider] - - Patient Discharge Instructions - Post Discharge Activity
[2019-11-05] MEDS ORDERED: SODIUM CHLORIDE 0.9% 1000 ML INFUS.BAG IV ONE (10:47)
[2019-11-05 12:24] LABS: BASO % 1.2 % (0-2.0); EOS % 1.4 % (0-4.5); HEMATOCRIT 41.9 % (35.4-49); HEMOGLOBIN 13.8 GM/dL (11.7-16.9); LYMPH % 7.7 % (8-40); MCH 29.5 pg (25.7-33.7); MCHC 32.8 g/dl (32.0-35.9); MEAN CELL VOLUME 89.9 fl (80-96); MEAN PLT VOLUME 9.6 fl (7.5-11.1); MONO % 6.6 % (3.8-10.2); NEUT % 83.1 % (42.8-82.8); PLATELET COUNT 115 K/MM3 (134-434); RBC 4.66 M/mm3 (4.00-5.60); RDW 16.9 % (11.9-15.9); WHITE BLOOD COUNT 11.5 K/mm3 (4.0-10.0)
[2019-11-05 12:42] LABS: BILIRUBIN,TOTAL 5.6 mg/dL (0.2-1); BLOOD UREA NITROGEN 27.8 mg/dL (7-18); CALCIUM 8.6 mg/dL (8.5-10.1); CREATININE 1.1 mg/dL (0.55-1.3); POTASSIUM 4.2 mmol/L (3.5-5.1); TOT PROT 7.8 g/dl (6.4-8.2)
--- NOTE | 2019-11-05 13:21 | EKG ---
Test Reason : Blood Pressure : / mmHG Vent. Rate : 079 BPM Atrial Rate : 079 BPM P-R Int : 152 ms QRS Dur : 100 ms QT Int : 390 ms P-R-T Axes : 026 030 002 degrees QTc Int : 447 ms NORMAL SINUS RHYTHM NONSPECIFIC ST AND T WAVE ABNORMALITY ABNORMAL ECG WHEN COMPARED WITH ECG OF 08-DEC-2018 00:35, QT HAS SHORTENED Confirmed by MD Norris Daniel ([id number]) on 11/05/2019 1:20:52 PM Referred By: Confirmed By:Eugene Norris MD
--- NOTE | 2019-11-05 18:03 | HP ---
CHIEF COMPLAINT: difficulty swallowing PCP: Dr. Stormy Jules HISTORY OF PRESENT ILLNESS: Nam Rios is a 79 year old male with a past medical history of GERD, HLD , asthma, HTN, cataract in L eye, CHF, COPD, alcoholic cirrhosis who presents with a 2-3 weeks history of difficulty swallowing. The patient notes that he had been having difficulty with solids and liquids for the last several weeks. He denies pain with swallowing. Notes that he often vomits up what he has been eating or drinking but denies bloody or bilious emesis. States that he feels like he is gagging when he eats if he does not vomit. Denies recent weight loss. Denies fever, chills, chest pain, shortness of breath, abdominal pain, headaches, dizziness, lightheadedness, syncopal episodes. Denies history of malignancy. Denies having episodes like this in the past. States that he was at [facility] 1 week prior where he had a chest CT performed that did not show any acute findings, given Decadron, and was sent home to follow up with Dr. Horn. His appointment was scheduled for 11/26, however the patient had been having increasing generalized weakness, difficulty swallowing and presented to the ED here. ER course was notable for: (1) BP 172/80 (2) WBC 11.5, bili 5.6, Alk 163, Alb 2.0 (3) Given 500cc NS bolus IMAGING: Abd/pelvis CT Included distal esophagus is not dilated. Further evaluation of the esophagus is recommended due to significant dilatation of the proximal and mid esophagus down to the level of the heena, seen on the CT scan of the neck, to rule out mid esophageal obstruction. Evaluate for a stricture or malignancy. Approximately 5 mm pulmonary nodule in the right middle lobe which is nonspecific. Small liver with mild decreased attenuation and nodularity of its contour consistent with liver cirrhosis. There are also multiple small calcific densities in the liver parenchyma compatible with granulomas. There is questionable filling defect in the main portal vein for which correlation with ultrasound is needed to rule out thrombosis. There are multiple calcific densities in the spleen compatible with granulomas. There is no evidence of small bowel obstruction. A few scattered diverticula in the colon without evidence of acute diverticulitis. Small fat-containing right inguinal hernia Soft Tissue CT Significantly dilated proximal esophagus down to the level of the heena with debris is, fluid and an air-fluid level which further evaluation is strongly recommended No discrete mass lesion or enlarged lymph nodes are identified. Tiny calcified plaque at the right common carotid bifurcation Recent Travel: denies PAST MEDICAL HISTORY: as above PAST SURGICAL HISTORY: Rylan and screws in RLE Social History: Smoking: distant smoking history Alcohol: continues to drink rum frequently, states his last drink was 1 week ago. 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 Allergies No Known Allergies Allergy (Verified 11/05/19 09:21) HOME MEDICATIONS: Home Medications Medication Instructions Recorded Famotidine [Pepcid] 20 mg PO DAILY 11/05/19 Meclizine HCl 25 mg PO BID 11/05/19 Pantoprazole Sodium 40 mg PO DAILY 11/05/19 Valsartan 320 mg PO DAILY 11/05/19 REVIEW OF SYSTEMS CONSTITUTIONAL: generalized weakness, loss of appetite Absent: fever, chills, diaphoresis, malaise, weight change HEENT: difficulty swallowing Absent: rhinorrhea, nasal congestion, mouth swelling, ear pain, eye pain, visual changes CARDIOVASCULAR: Absent: chest pain, syncope, palpitations, irregular heart rate, lightheadedness , peripheral edema RESPIRATORY: Absent: cough, shortness of breath, dyspnea with exertion, orthopnea, wheezing, stridor, hemoptysis GASTROINTESTINAL: nausea, vomiting Absent: abdominal pain, abdominal distension, diarrhea, constipation, melena, hematochezia GENITOURINARY: Absent: dysuria, frequency, urgency, hesitancy, hematuria, flank pain MUSCULOSKELETAL: Absent: myalgia, arthralgia, joint swelling, back pain, neck pain SKIN: Absent: rash, itching, pallor HEMATOLOGIC/IMMUNOLOGIC: Absent: easy bleeding, easy bruising, lymphadenopathy, frequent infections ENDOCRINE: Absent: unexplained weight gain, unexplained weight loss, heat intolerance, cold intolerance NEUROLOGIC: Absent: headache, focal weakness or paresthesias, dizziness, unsteady gait, seizure, mental status changes PSYCHIATRIC: Absent: anxiety, depression, suicidal or homicidal ideation, hallucinations. PHYSICAL EXAMINATION Vital Signs - 24 hr 11/05/19 11/05/19 11/05/19 09:18 14:30 17:44 Temperature 98.8 F 97.7 F Pulse Rate 89 Pulse Rate [ 74 Left Brachial] Respiratory 16 17 Rate Blood Pressure 172/80 H Blood Pressure 148/64 [Left Arm] O2 Sat by Pulse 97 97 97 Oximetry (%) GENERAL: Awake, alert, and fully oriented, in no acute distress. HEAD: Normal with no signs of trauma. EYES: decreased reactivity in the L eye. EARS, NOSE, THROAT: Oropharynx clear without exudates. Dry mucous membranes. NECK: Normal range of motion, supple without lymphadenopathy, JVD. LUNGS: Breath sounds equal, clear to auscultation bilaterally. No wheezes, and no crackles. No accessory muscle use. HEART: Regular rate and rhythm, normal S1 and S2 with noted systolic ejection murmur. ABDOMEN: Soft, nontender, not distended, rotund, normoactive bowel sounds, no guarding, no rebound, no masses. MUSCULOSKELETAL: Normal range of motion at all joints. No bony deformities or tenderness. No CVA tenderness. UPPER EXTREMITIES: 2+ pulses, warm, well-perfused. Noted clubbing of the fingers. No peripheral edema. LOWER EXTREMITIES: 2+ pulses, warm, well-perfused. No calf tenderness. No peripheral edema. NEUROLOGICAL: Cranial nerves II-XII intact. 5/5 muscle strength bilaterally upper and lower extremities. PSYCHIATRIC: Cooperative. Good eye contact. Appropriate mood and affect. Laboratory Results - last 24 hr 11/05/19 11/05/19 12:00 12:00 WBC 11.5 H RBC 4.66 Hgb 13.8 Hct 41.9 MCV 89.9 MCH 29.5 MCHC 32.8 RDW 16.9 H Plt Count 115 L D MPV 9.6 Absolute Neuts (auto) 9.5 H Neutrophils % 83.1 H D Lymphocytes % 7.7 L D Monocytes % 6.6 Eosinophils % 1.4 Basophils % 1.2 Nucleated RBC % 0 Sodium 146 H Potassium 4.2 Chloride 114 H Carbon Dioxide 26 Anion Gap 6 L BUN 27.8 H Creatinine 1.1 Est GFR (CKD-EPI)AfAm 74.13 Est GFR (CKD-EPI)NonAf 63.96 Random Glucose 113 H Calcium 8.6 Total Bilirubin 5.6 H AST 37 ALT 45 Alkaline Phosphatase 163 H Total Protein 7.8 Albumin 3.0 L Lipase 145 EKG--> MSR, nonspecific T wave abnormality, QTC 447 ASSESSMENT/PLAN: Nam Rios is a 79 year old male with a past medical history of GERD, HLD , asthma, HTN, cataract in L eye, CHF, COPD, alcoholic cirrhosis admitted for difficulty swallowing. Difficulty Swallowing - CT as above - GI consulted, recs appreciated - for EGD in the morning - IV Protonix - NPO - fluids while awaiting EGD Cirrhosis - likely in hx of alcohol abuse - hep A,B,C panel - noted elevated bilirubin - CT as above - GI consulted Filling Defect in Main Portal Vein on CT - abd U/S COPD/asthma - continue home Symbicort - home albuterol prn CHF - last echo in 2016 noting normal EF, normal LV - caution with excessive fluids as echo may have changed in the intermittent period of time GERD - on Protonix DVT PPx - SCDs - no chemical AC in preparation for EGD FEN - D5-NS at 50cc/hr - continue to monitor electrolytes and replete as necessary - NPO pending EGD Dispo - admit to Med-surg Family Medical History Family History: Denies Visit type - Emergency Visit Emergency Visit: Yes ED Registration Date: 11/05/19 Care time: The patient presented to the Emergency Department on the above date and was hospitalized for further evaluation of their emergent condition. - New Patient This patient is new to me today: Yes Date on this admission: 11/05/19 - Critical Care Critical Care patient: No
--- NOTE | 2019-11-05 18:06 | CON.GI ---
Consult Consult Specialty:: GI Referred by:: Dr. Thakkar/ED Reason for Consultation:: Dysphagia - History of Present Illness Chief Complaint: Dysphagia History of Present Illness: 76 yo M with history of extensive EtOH use presents with progressive intolerance /dysphagia to solid foods, now including liquids with impaired oral intake last 4-5 weeks. No appreciated weight loss. No pain. Intermittent emesis with relief, usually involving undigested food and liquid. NO sialorrhea Seen at [facility] with same complaints 2/ but discharged home and now worse. CT of neck with esophageal dilation to level of heena. CT of abd/pelvis ( including distal esophagus) without distal esoph dilattion but proximal esophagus with debris and air/fluid levels. Small (11.5 cm) liver with nodular contour. Calcific (likely granulomatous) lesions to spleen. + gallstones. Questionable diverticula and right inguinal hernia. Possible portal vein filling defect. Labs with WBC=11.5K; normal Hgb; low albumin (3.0), elevated total bilirubin= 5.6 and elevated alkaline phosphatase of 163. - History Source History Provided By: Patient Limitations to Obtaining History: Language Barrier - Past Medical History Cardio/Vascular: Yes: HTN, Hyperlipdemia Gastrointestinal: Yes: Hemorrhoids Hepatobiliary: Yes: Cirrhosis, Other (GALLBLADDER POLYP) - Past Surgical History Past Surgical History: Yes: Joint Replacement - Alcohol/Substance Use Hx Alcohol Use: Yes Number of Drinks Daily: 6 History of Substance Use: reports: None - Smoking History Smoking history: Never smoked Have you smoked in the past 12 months: No Aproximately how many cigarettes per day: 0 Home Medications - Allergies Allergies/Adverse Reactions: Allergies Allergy/AdvReac Type Severity Reaction Status Date / Time No Known Allergies Allergy Verified 11/05/19 09:21 - Home Medications Home Medications: Ambulatory Orders Famotidine [Pepcid] 20 mg PO DAILY 11/05/19 Meclizine HCl 25 mg PO BID 11/05/19 Pantoprazole Sodium 40 mg PO DAILY 11/05/19 Valsartan 320 mg PO DAILY 11/05/19 Review of Systems - Review of Systems Breasts: reports: Other (gynecomastia) Physical Exam-GI Vital Signs: Vital Signs Temperature 97.7 F 11/05/19 14:30 Pulse Rate 74 11/05/19 14:30 Respiratory Rate 17 11/05/19 14:30 Blood Pressure 148/64 11/05/19 14:30 O2 Sat by Pulse Oximetry (%) 97 11/05/19 17:44 Constitutional: Yes: No Distress Neck: Yes: WNL. No: Thyromegaly Cardiovascular: Yes: Regular Rate and Rhythm, S1, S2 Respiratory: Yes: CTA Bilaterally Gastrointestinal Inspection: No: Distention ...Auscultate: Yes: Normoactive Bowel Sounds ...Palpate: Yes: Soft. No: Hepatomegaly, Mass, Splenomegaly, Tenderness Labs: CBC, BMP 11/05/19 12:00 11/05/19 12:00 Imaging - Results Cat Scan: Report Reviewed (See luciano findings in HPI), Image Reviewed Assessment/Plan Progressive dysphagia without LOG LOADER even to mid esophagus with debris and air/ fluid levels. Concerning for stricture/malignancy. Suggest Keep NPO IVF IV acid suppression EGD in AM tomorrow Full liver evaluation given gyneocomastia, low albumin, elevated bilirubin though likely from EtOH. Would arrange for Hep B and C testing as start at this time. Reviewed with ER team
[2019-11-05] MEDS ORDERED: ALBUTEROL SO4 HFA INHALER IH PRN (18:15)
[2019-11-05] MEDS: DEXTROSE 5%-NORMAL SALINE 1,000 ML IV SCH (18:59)
--- NOTE | 2019-11-05 19:46 | PN ---
Teaching Attending Note Name of Resident: Warner Arredondo ATTENDING PHYSICIAN STATEMENT I saw and evaluated the patient. I reviewed the resident's note and discussed the case with the resident. I agree with the resident's findings and plan as documented. SUBJECTIVE: Patient seen and examined at bedside. 79 M h/o Etoh induced liver cirrhosis, now presenting with progressive dysphagia, for EGD in AM to r/o stricture v.s. esophageal mass. OBJECTIVE: PE GA elderly, unkempt, AAOx3 HEENT NC/AT, dry MM, Neck supple, no cervical LN palpable Chest CTAB, no crackles or wheezing CVS s1, S2+, RRR Abd obese, Soft, NT, BS+, no RUQ tenderness, ansari sign negative, no ascites appreciated Ext 1+ LE pitting edema b/l, no calf tenderness, moves all 4 ext. Neuro good cognition, no asterixis, answering questions appropriately Vital Signs - 24 hr 11/05/19 11/05/19 11/05/19 09:18 14:30 17:44 Temperature 98.8 F 97.7 F Pulse Rate 89 Pulse Rate [ 74 Left Brachial] Respiratory 16 17 Rate Blood Pressure 172/80 H Blood Pressure 148/64 [Left Arm] O2 Sat by Pulse 97 97 97 Oximetry (%) Laboratory Results - last 24 hr 11/05/19 11/05/19 12:00 12:00 WBC 11.5 H RBC 4.66 Hgb 13.8 Hct 41.9 MCV 89.9 MCH 29.5 MCHC 32.8 RDW 16.9 H Plt Count 115 L D MPV 9.6 Absolute Neuts (auto) 9.5 H Neutrophils % 83.1 H D Lymphocytes % 7.7 L D Monocytes % 6.6 Eosinophils % 1.4 Basophils % 1.2 Nucleated RBC % 0 Sodium 146 H Potassium 4.2 Chloride 114 H Carbon Dioxide 26 Anion Gap 6 L BUN 27.8 H Creatinine 1.1 Est GFR (CKD-EPI)AfAm 74.13 Est GFR (CKD-EPI)NonAf 63.96 Random Glucose 113 H Calcium 8.6 Total Bilirubin 5.6 H AST 37 ALT 45 Alkaline Phosphatase 163 H Total Protein 7.8 Albumin 3.0 L Lipase 145 Home Medications Medication Instructions Recorded Albuterol Sulfate [Proair Hfa] 1 - 2 puff IH Q6H PRN 11/05/19 Budesonide/Formeterol Fumarate 1 puff IH DAILY 11/05/19 [SYMBICORT 160/4.5mcg -] Famotidine [Pepcid] 20 mg PO DAILY 11/05/19 Meclizine HCl 25 mg PO BID 11/05/19 Pantoprazole Sodium 40 mg PO DAILY 11/05/19 Valsartan 320 mg PO DAILY 11/05/19 Current Medications Generic Name Dose Route Start Last Admin Trade Name Freq PRN Reason Stop Dose Admin Albuterol Sulfate 1 - 2 puff 11/05/19 18:15 Ventolin Hfa Inhaler - IH Q6H PRN SHORT OF BREATH/WHEEZING Budesonide/Formoterol Fumarate 2 puff 11/06/19 10:00 Symbicort 160/4.5mcg - IH BID VALENCIA Dextrose/Sodium Chloride 1,000 mls @ 50 mls/hr 11/05/19 18:15 11/05/19 18:59 D5-Ns - IV 50 mls/hr ASDIR VALENCIA Administration Pantoprazole Sodium 40 mg 11/06/19 10:00 Protonix Iv IVPUSH DAILY VALENCIA ASSESSMENT AND PLAN: 79 year old male with a past medical history of GERD, HLD, asthma, HTN, cataract in L eye, CHF, COPD, alcoholic liver cirrhosis admitted for progressive dysphagia. Progressive dysphagia IV PPI, EGD in AM, keep NPO, IVF w/ D5 based fluid, no signs of esophageal perforation, ?mass in esophagus v.s. stricture GI consult: Dr Herzog Cirrhosis Etoh induced will get baseline EGD in AM send for full Hepatitis panel, lactulose PRN for BM, hold off on diuretics for now patient does not have ascites Follow Abd US to r/o portal vein thrombosis, obtain new baseline for liver COPD/asthma not in acute exacerbation continue home Symbicort 2 puffs of Albuterol prior to EGD CHF not in overload, clinically dry, LE edema likely 2/2 low albumin state gentle IVF w/ D5 GERD IV PPI DVT ppx: SCD for now pending EGD results Med Surg
[2019-11-06 00:43] VITALS: BMI 27.0
[2019-11-06] MEDS: DEXTROSE 5%-NORMAL SALINE 1,000 ML IV SCH (04:27)
--- NOTE | 2019-11-06 06:16 | PN ---
Physical Exam: SUBJECTIVE: Patient seen and examined at the bedside. Stated that he is feeling the same as yesterday. Has not eaten. Denies cp, sob, abd pain, n/v/c/d, fevers , chills, dizziness, lightheadedness, headaches, weakness. OBJECTIVE: Vital Signs Period Temp Pulse Resp BP Sys/Cronin Pulse Ox Last 24 Hr 97.7 F-98.8 F 63-89 16-18 148-172/64-82 95-97 GENERAL: Awake, alert, and fully oriented, in no acute distress. HEAD: Normal with no signs of trauma. EYES: decreased reactivity in the L eye. EARS, NOSE, THROAT: Oropharynx clear without exudates. Dry mucous membranes. Mildly enlarged tonsils. NECK: Normal range of motion, supple without lymphadenopathy, JVD. LUNGS: Breath sounds equal, clear to auscultation bilaterally. No wheezes, and no crackles. No accessory muscle use. HEART: Regular rate and rhythm, normal S1 and S2 with noted systolic ejection murmur. ABDOMEN: Soft, nontender, not distended, rotund, normoactive bowel sounds, no guarding, no rebound, no masses. MUSCULOSKELETAL: Normal range of motion at all joints. No bony deformities or tenderness. EXTREMITIES: 2+ pulses, warm, well-perfused. Noted clubbing of the fingers. No peripheral edema. No calf tenderness. NEUROLOGICAL: Cranial nerves II-XII intact. 5/5 muscle strength bilaterally upper and lower extremities. PSYCHIATRIC: Cooperative. Good eye contact. Appropriate mood and affect. Laboratory Results - last 24 hr 11/05/19 11/05/19 12:00 12:00 WBC 11.5 H RBC 4.66 Hgb 13.8 Hct 41.9 MCV 89.9 MCH 29.5 MCHC 32.8 RDW 16.9 H Plt Count 115 L D MPV 9.6 Absolute Neuts (auto) 9.5 H Neutrophils % 83.1 H D Lymphocytes % 7.7 L D Monocytes % 6.6 Eosinophils % 1.4 Basophils % 1.2 Nucleated RBC % 0 Sodium 146 H Potassium 4.2 Chloride 114 H Carbon Dioxide 26 Anion Gap 6 L BUN 27.8 H Creatinine 1.1 Est GFR (CKD-EPI)AfAm 74.13 Est GFR (CKD-EPI)NonAf 63.96 Random Glucose 113 H Calcium 8.6 Total Bilirubin 5.6 H AST 37 ALT 45 Alkaline Phosphatase 163 H Total Protein 7.8 Albumin 3.0 L Lipase 145 Active Medications Generic Name Dose Route Start Last Admin Trade Name Clary PRN Reason Stop Dose Admin Albuterol Sulfate 1 - 2 puff 11/05/19 18:15 Ventolin Hfa Inhaler - IH Q6H PRN SHORT OF BREATH/WHEEZING Budesonide/Formoterol Fumarate 2 puff 11/06/19 10:00 Symbicort 160/4.5mcg - IH BID VALENCIA Dextrose/Sodium Chloride 1,000 mls @ 50 mls/hr 11/05/19 18:15 11/06/19 04:27 D5-Ns - IV 50 mls/hr ASDIR VALENCIA Administration Pantoprazole Sodium 40 mg 11/06/19 10:00 Protonix Iv IVPUSH DAILY VALENCIA IMAGING: Abd/pelvis CT Included distal esophagus is not dilated. Further evaluation of the esophagus is recommended due to significant dilatation of the proximal and mid esophagus down to the level of the heena, seen on the CT scan of the neck, to rule out mid esophageal obstruction. Evaluate for a stricture or malignancy. Approximately 5 mm pulmonary nodule in the right middle lobe which is nonspecific. Small liver with mild decreased attenuation and nodularity of its contour consistent with liver cirrhosis. There are also multiple small calcific densities in the liver parenchyma compatible with granulomas. There is questionable filling defect in the main portal vein for which correlation with ultrasound is needed to rule out thrombosis. There are multiple calcific densities in the spleen compatible with granulomas. There is no evidence of small bowel obstruction. A few scattered diverticula in the colon without evidence of acute diverticulitis. Small fat-containing right inguinal hernia Soft Tissue CT Significantly dilated proximal esophagus down to the level of the heena with debris is, fluid and an air-fluid level which further evaluation is strongly recommended No discrete mass lesion or enlarged lymph nodes are identified. Tiny calcified plaque at the right common carotid bifurcation ASSESSMENT/PLAN: Nam Rios is a 79 year old male with a past medical history of GERD, HLD , asthma, HTN, cataract in L eye, CHF, COPD, alcoholic cirrhosis admitted for difficulty swallowing. Difficulty Swallowing - CT as above - GI consulted, recs appreciated - EGD noting ulcerated esophageal mucosa and unclear if this represents and underlying proximal esophageal mass or ulceration from prolonged stasis of food , small varices, gastritis in gastric body, single ulcer in prepyloric region - post EGD recs noted, no NSAIDS, await path results, clear liquid diet, will need repeat EGD to assess for malignancy and if excluded will likely need esophageal dilation, this best to be done at a tertiary care center that can comanage his underlying liver disease - Protonix 40mg bid for 3 days and 40mg daily afterwards Cirrhosis - likely in hx of alcohol abuse - hep A,B,C panel - noted elevated bilirubin - CT as above - GI consulted, recs appreciated Filling Defect in Main Portal Vein on CT - abd U/S noting No obvious portal vein thrombosis is identified however supplemental evaluation utilizing contrast enhanced multiphase MRI or CT is suggested. Cholelithiasis. Mild diffuse gallbladder wall thickening is noted without obvious interval change in comparison to a 2017 ultrasound study. Possible choledocholithiasis on CT also not be visualized on the current ultrasound exam. MRI/MRCP evaluation is suggested. Hepatic cirrhosis. Small calcified hepatic granulomas. COPD/asthma - continue home Symbicort - home albuterol prn CHF - last echo in 2017 noting normal EF, normal LV - caution with excessive fluids as echo may have changed in the intermittent period of time HTN - continue home valsartan GERD - on Protonix DVT PPx - SCDs - avoid AC in setting of recent EGD and biopsy FEN - no standing fluids, encourage PO intake - continue to monitor electrolytes and replete as necessary - clear liquid diet Dispo - continue to monitor on Med-surg Visit type - Emergency Visit Emergency Visit: Yes ED Registration Date: 11/05/19 Care time: The patient presented to the Emergency Department on the above date and was hospitalized for further evaluation of their emergent condition. - New Patient This patient is new to me today: No - Critical Care Critical Care patient: No
--- NOTE | 2019-11-06 09:01 | PN ---
Teaching Attending Note Name of Resident: Warner Arredondo ATTENDING PHYSICIAN STATEMENT I saw and evaluated the patient. I reviewed the resident's note and discussed the case with the resident. I agree with the resident's findings and plan as documented. SUBJECTIVE: Patient is going for EGD today. no acute distress. OBJECTIVE: Vital Signs Temperature 97.9 F 11/06/19 05:44 Pulse Rate 63 11/06/19 05:44 Respiratory Rate 18 11/06/19 05:44 Blood Pressure 155/82 11/06/19 05:44 O2 Sat by Pulse Oximetry (%) 95 11/05/19 23:00 GENERAL: The patient is awake, alert, and fully oriented, in no acute distress. HEAD: Normal with no signs of trauma. EYES: PERRL, extraocular movements intact, sclera anicteric, conjunctiva clear. ENT: Ears normal, oropharynx clear without exudates, moist mucous membranes. NECK: Trachea midline, full range of motion, supple. LUNGS: Breath sounds equal, clear to auscultation bilaterally, no wheezes, no crackles, no accessory muscle use. HEART: Regular rate and rhythm, S1, S2 without murmur, rub or gallop. ABDOMEN: Soft, Nt,ND, normoactive bowel sounds, no guarding, no rebound, no hepatosplenomegaly, no masses. EXTREMITIES: 2+ pulses, warm, well-perfused, no edema. NEUROLOGICAL: Cranial nerves II through XII grossly intact. Normal speech, gait not observed. PSYCH: Normal mood, normal affect. SKIN: Warm, dry, normal turgor, no rashes or lesions noted CBCD WBC 11.5 K/mm3 (4.0-10.0) H 11/05/19 12:00 RBC 4.66 M/mm3 (4.00-5.60) 11/05/19 12:00 Hgb 13.8 GM/dL (11.7-16.9) 11/05/19 12:00 Hct 41.9 % (35.4-49) 11/05/19 12:00 MCV 89.9 fl (80-96) 11/05/19 12:00 MCHC 32.8 g/dl (32.0-35.9) 11/05/19 12:00 RDW 16.9 % (11.9-15.9) H 11/05/19 12:00 Plt Count 115 K/MM3 (134-434) L D 11/05/19 12:00 MPV 9.6 fl (7.5-11.1) 11/05/19 12:00 CMP Sodium 146 mmol/L (136-145) H 11/05/19 12:00 Potassium 4.2 mmol/L (3.5-5.1) 11/05/19 12:00 Chloride 114 mmol/L (98-107) H 11/05/19 12:00 Carbon Dioxide 26 mmol/L (21-32) 11/05/19 12:00 Anion Gap 6 MMOL/L (8-16) L 11/05/19 12:00 BUN 27.8 mg/dL (7-18) H 11/05/19 12:00 Creatinine 1.1 mg/dL (0.55-1.3) 11/05/19 12:00 Random Glucose 113 mg/dL (74-106) H 11/05/19 12:00 Calcium 8.6 mg/dL (8.5-10.1) 11/05/19 12:00 Total Bilirubin 5.6 mg/dL (0.2-1) H 11/05/19 12:00 AST 37 U/L (15-37) 11/05/19 12:00 ALT 45 U/L (13-61) 11/05/19 12:00 Alkaline Phosphatase 163 U/L (45-117) H 11/05/19 12:00 Total Protein 7.8 g/dl (6.4-8.2) 11/05/19 12:00 Albumin 3.0 g/dl (3.4-5.0) L 11/05/19 12:00 Current Medications Generic Name Dose Route Start Last Admin Trade Name Freq PRN Reason Stop Dose Admin Albuterol Sulfate 1 - 2 puff 11/05/19 18:15 Ventolin Hfa Inhaler - IH Q6H PRN SHORT OF BREATH/WHEEZING Budesonide/Formoterol Fumarate 2 puff 11/06/19 10:00 Symbicort 160/4.5mcg - IH BID VALENCIA Dextrose/Sodium Chloride 1,000 mls @ 50 mls/hr 11/05/19 18:15 11/06/19 04:27 D5-Ns - IV 50 mls/hr ASDIR VALENCIA Administration Pantoprazole Sodium 40 mg 11/06/19 10:00 Protonix Iv IVPUSH DAILY [facility] Home Medications Medication Instructions Recorded Albuterol Sulfate [Proair Hfa] 1 - 2 puff IH Q6H PRN 11/05/19 Budesonide/Formeterol Fumarate 1 puff IH DAILY 11/05/19 [SYMBICORT 160/4.5mcg -] Famotidine [Pepcid] 20 mg PO DAILY 11/05/19 Meclizine HCl 25 mg PO BID 11/05/19 Pantoprazole Sodium 40 mg PO DAILY 11/05/19 Valsartan 320 mg PO DAILY 11/05/19 US of abdomen: hepatic cirrhosi , small calcified hepatic granuloma, no thrombosis. + cholelithiasis, mild diffuse gallbladder wall thickening ASSESSMENT AND PLAN: Patient is a 79yom with a PMHx of GERD, HLD, asthma, HTN, cataract in L eye, CHF , COPD, alcoholic liver cirrhosis admitted for progressive dysphagia. # Progressive dysphagia: going for EGD today, continue IVF , GI consult appreciated #Cirrhosis: Etoh induced , full Hepatitis panel ordered , lactulose PRN for BM, hold off on diuretics for now patient does not have ascites #COPD/asthma: not in acute exacerbation, continue home Symbicort , Albuterol #Diastolic CHF:stable #GERD: IV PPI DVT ppx: SCD
[2019-11-06 09:17] LABS: BASO % 0.8 % (0-2.0); EOS % 5.6 % (0-4.5); HEMATOCRIT 40.6 % (35.4-49); HEMOGLOBIN 13.2 GM/dL (11.7-16.9); MCH 29.9 pg (25.7-33.7); MCHC 32.6 g/dl (32.0-35.9); MEAN CELL VOLUME 91.7 fl (80-96); MEAN PLT VOLUME 9.5 fl (7.5-11.1); MONO % 9.7 % (3.8-10.2); NEUT % 65.9 % (42.8-82.8); PLATELET COUNT 109 K/MM3 (134-434); RBC 4.42 M/mm3 (4.00-5.60); RDW 17.2 % (11.9-15.9); WHITE BLOOD COUNT 6.7 K/mm3 (4.0-10.0)
[2019-11-06 09:31] LABS: INR 1.61 (0.83-1.09); PROTHROMBIN TIME (PATIENT) 19.1 SEC (9.7-13.0)
[2019-11-06 09:33] LABS: ACTIVATED PTT 35.5 SECONDS (25.2-36.5)
[2019-11-06] MEDS: BUDESONIDE/FORMETEROL FUMARATE 160/4.5 mcg INHALER IH SCH ×2 (09:52→21:18)
[2019-11-06] MEDS ORDERED: PANTOPRAZOLE SODIUM 40 MG VIAL IVPUSH SCH (10:00)
[2019-11-06 10:02] LABS: BILIRUBIN,TOTAL 4.8 mg/dL (0.2-1); BLOOD UREA NITROGEN 24.5 mg/dL (7-18); CALCIUM 8.6 mg/dL (8.5-10.1); CREATININE 0.9 mg/dL (0.55-1.3); MAGNESIUM 2.2 mg/dL (1.8-2.4); POTASSIUM 4.2 mmol/L (3.5-5.1); TOT PROT 7.7 g/dl (6.4-8.2)
[2019-11-06] MEDS ORDERED: MIDAZOLAM HCL 2 MG/2 ML SINGLE DOSE VIAL ONE (10:53)
[2019-11-06] MEDS ORDERED: DEXTROSE 5%-0.45% SALINE 1,000 ML IV SCH (12:00)
--- NOTE | 2019-11-06 12:58 | PN ---
Progress Note (short form) - Note Progress Note: EGD complete. Report left in the procedural section of the physical chart and will be scanned into [employer]
[2019-11-06] MEDS: PANTOPRAZOLE 40 MG TABLET PO SCH (21:17)
[2019-11-06] MEDS: MECLIZINE HCL 25 MG TABLET (FP) PO SCH (21:17)
[2019-11-07 08:49] LABS: BASO % 0.2 % (0-2.0); HEMATOCRIT 36.2 % (35.4-49); LYMPH % 10.2 % (8-40); MCH 30.2 pg (25.7-33.7); MCHC 33.1 g/dl (32.0-35.9); MEAN CELL VOLUME 91.1 fl (80-96); MEAN PLT VOLUME 9.9 fl (7.5-11.1); MONO % 4.4 % (3.8-10.2); NEUT % 85.2 % (42.8-82.8); PLATELET COUNT 87 K/MM3 (134-434); RBC 3.97 M/mm3 (4.00-5.60); RDW 16.9 % (11.9-15.9); WHITE BLOOD COUNT 7.4 K/mm3 (4.0-10.0)
[2019-11-07] MEDS: PANTOPRAZOLE 40 MG TABLET PO SCH (09:16)
[2019-11-07] MEDS: BUDESONIDE/FORMETEROL FUMARATE 160/4.5 mcg INHALER IH SCH (09:16)
[2019-11-07] MEDS: MECLIZINE HCL 25 MG TABLET (FP) PO SCH (09:16)
[2019-11-07 09:24] LABS: ALBUMIN 2.5 g/dl (3.4-5.0); BILIRUBIN,TOTAL 3.6 mg/dL (0.2-1); BLOOD UREA NITROGEN 20.1 mg/dL (7-18); CALCIUM 7.7 mg/dL (8.5-10.1); CREATININE 1.1 mg/dL (0.55-1.3); MAGNESIUM 1.8 mg/dL (1.8-2.4); POTASSIUM 3.8 mmol/L (3.5-5.1); TOT PROT 6.7 g/dl (6.4-8.2)
[2019-11-07] MEDS ORDERED: VALSARTAN 160 MG TABLET (UD) PO SCH (10:00)
--- NOTE | 2019-11-07 10:09 | PN.GI ---
GI Progress Note Subjective: [employer] [id number] utilized No acute events No abdominal pain Tolerated clears - Objective Vital Signs: Vital Signs Temperature 97.6 F 11/07/19 04:00 Pulse Rate 54 L 11/07/19 04:00 Respiratory Rate 18 11/07/19 04:00 Blood Pressure 110/50 L 11/07/19 04:00 O2 Sat by Pulse Oximetry (%) 98 11/06/19 23:49 Constitutional: Calm Eyes: No: Sclera Icterus Cardiovascular: Yes: Regular Rate and Rhythm, Murmur (2/6 systolic murmur) Respiratory: Yes: CTA Bilaterally Gastrointestinal Inspection: No: Distention ...Auscultate: Yes: Normoactive Bowel Sounds ...Palpate: Yes: Soft. No: Hepatomegaly, Splenomegaly, Tenderness Edema: LLE: Trace, RLE: Trace Neurological: Yes: Alert, Oriented (x 3) Labs: CBC, BMP 11/07/19 07:50 11/07/19 07:50 INR, PTT INR 1.61 (0.83-1.09) H 11/06/19 08:22 Hepatic Panel Total Bilirubin 3.6 mg/dL (0.2-1) H 11/07/19 07:50 AST 22 U/L (15-37) 11/07/19 07:50 ALT 29 U/L (13-61) 11/07/19 07:50 Alkaline Phosphatase 131 U/L (45-117) H 11/07/19 07:50 Albumin 2.5 g/dl (3.4-5.0) L 11/07/19 07:50 Problem List - Problems (1) Esophageal ulcer Assessment/Plan: Food impaction with large underlying area of ulcerated mucosa in the proximal esophagus spanning from 22-25cm. Traversable stricture @ 25cm Small varices seen in the distal esophagus and Antral ulcer Advanced to full liquids this morning. If tolerating, maintain on pureed diet Awaiting pathology results. If cancer noted will need oncology evaluation. Spoke with pathologist yesterday after the procedure Added carafate liquid 1g BID Protonix 40mg daily Given underlying liver disease, concern for distal esophageal varices, Will need further evaluation and treatment @ liver center for liver disease as well as further evaluation and treatment of his esophageal findings. Can arrange follow-up with Dr. Ananda Gonzalez @ [facility] and call to arrange prior to discharge. [phone] Code(s): K22.10 - ULCER OF ESOPHAGUS WITHOUT BLEEDING (2) Cirrhosis Assessment/Plan: Advised need for complete alcohol cessation q6 month hepatic US to screen Code(s): K74.60 - UNSPECIFIED CIRRHOSIS OF LIVER Qualifiers: Hepatic cirrhosis type: alcoholic cirrhosis
--- NOTE | 2019-11-07 11:42 | PN ---
Progress Note (short form) - Note Progress Note: Called by pathologgist: Biopsies c/w poorly differentiated Squamous Cell Ca Discussed with Dr. Christian. Will need onc eval. Other recommendations per today's progress note. Problem List - Problems (1) Esophageal ulcer Code(s): K22.10 - ULCER OF ESOPHAGUS WITHOUT BLEEDING (2) Cirrhosis Code(s): K74.60 - UNSPECIFIED CIRRHOSIS OF LIVER Qualifiers: Hepatic cirrhosis type: alcoholic cirrhosis
--- NOTE | 2019-11-07 13:24 | PN ---
Physical Exam: SUBJECTIVE: Patient seen and examined at the bedside. Stated he is feeling better and tolerated his clear liquid diet well yesterday and this morning. States has a small amount of abdominal pain. No episodes of nausea or vomiting. Denied cp, sob, constipation, diarrhea, fever, chills, headaches, dizziness, lightheadedness. OBJECTIVE: Vital Signs Period Temp Pulse Resp BP Sys/Cronin Pulse Ox Last 24 Hr 97.5 F-98.3 F 54-69 16-20 110-158/49-72 98-98 GENERAL: Awake, alert, and fully oriented, in no acute distress. Faroese speaking. HEAD: Normal with no signs of trauma. EYES: decreased reactivity in the L eye. EARS, NOSE, THROAT: Oropharynx clear without exudates. Dry mucous membranes. Mildly enlarged tonsils. NECK: Normal range of motion, supple without lymphadenopathy, JVD. LUNGS: Breath sounds equal, clear to auscultation bilaterally. No wheezes, and no crackles. No accessory muscle use. HEART: Regular rate and rhythm, normal S1 and S2 with noted systolic ejection murmur. ABDOMEN: Soft, nontender, not distended, rotund, normoactive bowel sounds, no guarding, no rebound, no masses. EXTREMITIES: 2+ pulses, warm, well-perfused. Noted clubbing of the fingers. No peripheral edema. No calf tenderness. PSYCHIATRIC: Cooperative. Good eye contact. Appropriate mood and affect. Laboratory Results - last 24 hr 11/06/19 11/07/19 11/07/19 08:55 07:50 07:50 WBC 7.4 RBC 3.97 L Hgb 12.0 Hct 36.2 MCV 91.1 MCH 30.2 MCHC 33.1 RDW 16.9 H Plt Count 87 L D MPV 9.9 Absolute Neuts (auto) 6.3 Neutrophils % 85.2 H D Lymphocytes % 10.2 D Monocytes % 4.4 Eosinophils % 0.0 D Basophils % 0.2 Nucleated RBC % 0 Sodium 142 Potassium 3.8 Chloride 110 H Carbon Dioxide 24 Anion Gap 8 BUN 20.1 H Creatinine 1.1 Est GFR (CKD-EPI)AfAm 74.13 Est GFR (CKD-EPI)NonAf 63.96 Random Glucose 129 H Calcium 7.7 L Magnesium 1.8 Total Bilirubin 3.6 H AST 22 ALT 29 Alkaline Phosphatase 131 H Total Protein 6.7 Albumin 2.5 L Hep A IgM Ab Confirm Negative Hep Bs Antigen Negative Hep B Core IgM Ab Negative Hep C Ab Diagnostic <0.1 Hepatitis C Ab (EIA) <0.1 Active Medications Generic Name Dose Route Start Last Admin Trade Name Freq PRN Reason Stop Dose Admin Albuterol Sulfate 1 - 2 puff 11/05/19 18:15 Ventolin Hfa Inhaler - IH Q6H PRN SHORT OF BREATH/WHEEZING Budesonide/Formoterol Fumarate 2 puff 11/06/19 10:00 11/07/19 09:16 Symbicort 160/4.5mcg - IH 2 puff BID VALENCIA Administration Meclizine HCl 25 mg 11/06/19 22:00 11/07/19 09:16 Antivert - PO 25 mg BID VALENCIA Administration Pantoprazole Sodium 40 mg 11/06/19 22:00 11/07/19 09:16 Protonix - PO 40 mg BID VALENCIA Administration Sucralfate 1 gm 11/07/19 22:00 Carafate Oral Suspension - PO BID VALENCIA Valsartan 320 mg 11/07/19 10:00 11/07/19 09:17 Diovan - PO 320 mg DAILY VALENCIA Administration IMAGING: Abd/pelvis CT Included distal esophagus is not dilated. Further evaluation of the esophagus is recommended due to significant dilatation of the proximal and mid esophagus down to the level of the heena, seen on the CT scan of the neck, to rule out mid esophageal obstruction. Evaluate for a stricture or malignancy. Approximately 5 mm pulmonary nodule in the right middle lobe which is nonspecific. Small liver with mild decreased attenuation and nodularity of its contour consistent with liver cirrhosis. There are also multiple small calcific densities in the liver parenchyma compatible with granulomas. There is questionable filling defect in the main portal vein for which correlation with ultrasound is needed to rule out thrombosis. There are multiple calcific densities in the spleen compatible with granulomas. There is no evidence of small bowel obstruction. A few scattered diverticula in the colon without evidence of acute diverticulitis. Small fat-containing right inguinal hernia Soft Tissue CT Significantly dilated proximal esophagus down to the level of the heena with debris is, fluid and an air-fluid level which further evaluation is strongly recommended No discrete mass lesion or enlarged lymph nodes are identified. Tiny calcified plaque at the right common carotid bifurcation ASSESSMENT/PLAN: Nam Rios is a 79 year old male with a past medical history of GERD, HLD , asthma, HTN, cataract in L eye, CHF, COPD, alcoholic cirrhosis admitted for difficulty swallowing. Difficulty Swallowing - CT as above - GI consulted, recs appreciated - EGD noting ulcerated esophageal mucosa and unclear if this represents and underlying proximal esophageal mass or ulceration from prolonged stasis of food , small varices, gastritis in gastric body, single ulcer in prepyloric region - post EGD recs noted, no NSAIDS, await path results, clear liquid diet, will need repeat EGD to assess for malignancy and if excluded will likely need esophageal dilation, this best to be done at a tertiary care center that can comanage his underlying liver disease - Protonix 40mg bid for 3 days and 40mg daily afterwards - carafate 1g bid - pathology reported that patient has poorly differentiated SCC - Oncology consulted - CT/Abd/Pelvis with contrast to evaluate for mets Cirrhosis - likely in hx of alcohol abuse - hep A,B,C panel - noted elevated bilirubin - CT as above - GI consulted, recs appreciated - will need q6h month hepatic u/s screen Filling Defect in Main Portal Vein on CT - abd U/S noting No obvious portal vein thrombosis is identified however supplemental evaluation utilizing contrast enhanced multiphase MRI or CT is suggested. Cholelithiasis. Mild diffuse gallbladder wall thickening is noted without obvious interval change in comparison to a 2017 ultrasound study. Possible choledocholithiasis on CT also not be visualized on the current ultrasound exam. MRI/MRCP evaluation is suggested. Hepatic cirrhosis. Small calcified hepatic granulomas. COPD/asthma - continue home Symbicort - home albuterol prn CHF - last echo in 2017 noting normal EF, normal LV - caution with excessive fluids as echo may have changed in the intermittent period of time HTN - continue home valsartan GERD - on Protonix DVT PPx - SCDs - avoid AC in setting of recent EGD and biopsy FEN - no standing fluids, encourage PO intake - continue to monitor electrolytes and replete as necessary - full liquid diet, and can advance to puree if tolerating Dispo - continue to monitor on Med-surg Visit type - Emergency Visit Emergency Visit: Yes ED Registration Date: 11/05/19 Care time: The patient presented to the Emergency Department on the above date and was hospitalized for further evaluation of their emergent condition. - New Patient This patient is new to me today: No - Critical Care Critical Care patient: No
[2019-11-07 14:53] VITALS: BP 112/52; PULSE 63; TEMP 97.4
--- NOTE | 2019-11-07 15:03 | CONSULT ---
Consultation: CONSULT SERVICE: Hematology/Oncology Resident HISTORY OF PRESENT ILLNESS: [employer] #: [id number] used for [place] Islander interpretation 79yo M with h/o alcoholic cirrhosis, GERD, HLD, COPD/asthma, HTN who originally presented due to worsening dysphagia over the course of 2-3 weeks. Pt was previously seen at [facility] for the same complaint and was discharged with follow-up to Dr. Horn in November of 2019. Pt had worsening dysphagia which evolved to include both solids and liquids. Pt came to this facility for evaluation. GI was consulted while here and EGD was performed which noted a proximal esophageal narrowing, ulceration, and likely underlying varices. EGD scope was able to pass through the narrowing to continue the EGD and biopsies were taken. Biopsy was called in to Dr. Lowe resulting in poorly differentiated squamous cell carcinoma. Currently patient reports being able to drink liquids and can swallow some solids. Pt denies any fever/chills, night sweats, weight loss. He endorses infrequent trace edema of his legs, however has not experienced in the past two days. 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 Family History: Noncontributory; no cancer history that patient is aware of REVIEW OF SYSTEMS: As per HPI PHYSICAL EXAMINATION Vital Signs - 24 hr 11/06/19 11/06/19 11/06/19 18:22 21:00 22:00 Temperature 98.3 F 97.5 F L Pulse Rate 63 62 Respiratory 16 16 18 Rate Blood Pressure 150/70 137/69 O2 Sat by Pulse 98 Oximetry (%) 11/06/19 11/07/19 11/07/19 23:49 04:00 10:00 Temperature 97.6 F 98.2 F Pulse Rate 54 L 59 L Respiratory 16 18 20 Rate Blood Pressure 110/50 L 133/49 L O2 Sat by Pulse 98 Oximetry (%) 11/07/19 14:53 Temperature 97.4 F L Pulse Rate 63 Respiratory 20 Rate Blood Pressure 112/52 L O2 Sat by Pulse Oximetry (%) GENERAL: Awake, alert, and fully oriented, in no acute distress. HEENT: NC/AT, MILY, sclera slightly icteric, MMM without exudates or thrush NECK: No JVD, no lymphadenopathy LUNGS: CTA bilaterally. No wheezes, and no crackles. No accessory muscle use. No chest wall masses appreciated. Gynecomastia HEART: RRR, normal S1 and S2 without murmur ABDOMEN: Soft, slightly distended, nontender, no shifting dullness, normoactive BS, no guarding, no caput medusa appreciated, no hepatomegaly. : Normal testicular exam, no axillary Lymphadenopathy EXTREMITIES: 2+ DP pulses, warm, well-perfused. No calf tenderness. No peripheral edema appreciated. PSYCHIATRIC: Cooperative. Good eye contact. Appropriate mood and affect. SKIN: Warm, dry, no rashes noted. Laboratory Results - last 24 hr 11/06/19 11/07/19 11/07/19 08:55 07:50 07:50 WBC 7.4 RBC 3.97 L Hgb 12.0 Hct 36.2 MCV 91.1 MCH 30.2 MCHC 33.1 RDW 16.9 H Plt Count 87 L D MPV 9.9 Absolute Neuts (auto) 6.3 Neutrophils % 85.2 H D Lymphocytes % 10.2 D Monocytes % 4.4 Eosinophils % 0.0 D Basophils % 0.2 Nucleated RBC % 0 Sodium 142 Potassium 3.8 Chloride 110 H Carbon Dioxide 24 Anion Gap 8 BUN 20.1 H Creatinine 1.1 Est GFR (CKD-EPI)AfAm 74.13 Est GFR (CKD-EPI)NonAf 63.96 Random Glucose 129 H Calcium 7.7 L Magnesium 1.8 Total Bilirubin 3.6 H AST 22 ALT 29 Alkaline Phosphatase 131 H Total Protein 6.7 Albumin 2.5 L Hep A IgM Ab Confirm Negative Hep Bs Antigen Negative Hep B Core IgM Ab Negative Hep C Ab Diagnostic <0.1 Hepatitis C Ab (EIA) <0.1 Active Medications Generic Name Dose Route Start Last Admin Trade Name Freq PRN Reason Stop Dose Admin Albuterol Sulfate 1 - 2 puff 11/05/19 18:15 Ventolin Hfa Inhaler - IH Q6H PRN SHORT OF BREATH/WHEEZING Budesonide/Formoterol Fumarate 2 puff 11/06/19 10:00 11/07/19 09:16 Symbicort 160/4.5mcg - IH 2 puff BID VALENCIA Administration Meclizine HCl 25 mg 11/06/19 22:00 11/07/19 09:16 Antivert - PO 25 mg BID VALENCIA Administration Pantoprazole Sodium 40 mg 11/07/19 22:00 Protonix - PO BID VALENCIA Sucralfate 1 gm 11/07/19 22:00 Carafate Oral Suspension - PO BID VALENCIA Valsartan 320 mg 11/07/19 10:00 11/07/19 09:17 Diovan - PO 320 mg DAILY VALENCIA Administration ASSESSMENT/PLAN: 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 Portal vein thrombosis --11/05/2019 CT A/P and soft tissue neck with contrast reviewed: --5mm RML pulm. nodule noted --Liver and spleen ganulomas --No LN suspicious on scans as of now --Given pt's comorbid conditions (alcoholic cirrhosis: MELD 18 + esophageal varices) alongside of age pt would likely be a less than optimal for surgery. --Possible benefit from staging with EUS --After staging will need systemic treatment +/- radiotherapy --Discussed with primary team about portal vein thrombosis who discussed with radiology and in lieu of U/S the findings on CT scan likely negative Case discussed with Dr. Lisset Espino, DO - IM PGY-3 Visit type - Emergency Visit Emergency Visit: Yes ED Registration Date: 11/05/19 Care time: The patient presented to the Emergency Department on the above date and was hospitalized for further evaluation of their emergent condition. - New Patient This patient is new to me today: Yes Date on this admission: 11/07/19 - Critical Care Critical Care patient: No ATTENDING PHYSICIAN STATEMENT I saw and evaluated the patient. I reviewed the resident's note and discussed the case with the resident. I agree with the resident's findings and plan as documented. SUBJECTIVE: OBJECTIVE: ASSESSMENT AND PLAN:
--- NOTE | 2019-11-07 17:24 | DS ---
Physical Exam: SUBJECTIVE: Patient seen and examined at the bedside. Stated he is feeling better and tolerated his clear liquid diet well yesterday and this morning. States has a small amount of abdominal pain. No episodes of nausea or vomiting. Denied cp, sob, constipation, diarrhea, fever, chills, headaches, dizziness, lightheadedness. Was spoken to via [employer] boat officer phone, boat officer [phone], about transfer to [facility] for further workup of his esophageal mass, continued dysphagia, and new diagnosis of esophageal squamous cell carcinoma. Patient did not have any further questions and agreed to transfer. OBJECTIVE: Vital Signs Period Temp Pulse Resp BP Sys/Cronin Pulse Ox Last 24 Hr 97.4 F-98.3 F 54-63 16-20 110-150/49-70 98-98 PHYSICAL EXAM GENERAL: Awake, alert, and fully oriented, in no acute distress. Palauan speaking. HEAD: Normal with no signs of trauma. EYES: decreased reactivity in the L eye. EARS, NOSE, THROAT: Oropharynx clear without exudates. Dry mucous membranes. Mildly enlarged tonsils. NECK: Normal range of motion, supple without lymphadenopathy, JVD. LUNGS: Breath sounds equal, clear to auscultation bilaterally. No wheezes, and no crackles. No accessory muscle use. HEART: Regular rate and rhythm, normal S1 and S2 with noted systolic ejection murmur. ABDOMEN: Soft, nontender, not distended, rotund, normoactive bowel sounds, no guarding, no rebound, no masses. EXTREMITIES: 2+ pulses, warm, well-perfused. Noted clubbing of the fingers. No peripheral edema. No calf tenderness. PSYCHIATRIC: Cooperative. Good eye contact. Appropriate mood and affect. LABS Laboratory Results - last 24 hr 11/06/19 11/07/19 11/07/19 08:55 07:50 07:50 WBC 7.4 RBC 3.97 L Hgb 12.0 Hct 36.2 MCV 91.1 MCH 30.2 MCHC 33.1 RDW 16.9 H Plt Count 87 L D MPV 9.9 Absolute Neuts (auto) 6.3 Neutrophils % 85.2 H D Lymphocytes % 10.2 D Monocytes % 4.4 Eosinophils % 0.0 D Basophils % 0.2 Nucleated RBC % 0 Sodium 142 Potassium 3.8 Chloride 110 H Carbon Dioxide 24 Anion Gap 8 BUN 20.1 H Creatinine 1.1 Est GFR (CKD-EPI)AfAm 74.13 Est GFR (CKD-EPI)NonAf 63.96 Random Glucose 129 H Calcium 7.7 L Magnesium 1.8 Total Bilirubin 3.6 H AST 22 ALT 29 Alkaline Phosphatase 131 H Total Protein 6.7 Albumin 2.5 L Hep A IgM Ab Confirm Negative Hep Bs Antigen Negative Hep B Core IgM Ab Negative Hep C Ab Diagnostic <0.1 Hepatitis C Ab (EIA) <0.1 HOSPITAL COURSE: Nam Rios is a 79 year old male with a past medical history of GERD, HLD , asthma, HTN, cataract in L eye, CHF, COPD, alcoholic cirrhosis admitted for difficulty swallowing. Abdomen pelvis CT and soft tissue of the neck as below but noting esophageal dilation. Patient underwent EGD which noted ulcerated esophageal mucosa and unclear if this represents and underlying proximal esophageal mass or ulceration from prolonged stasis of food, small varices, gastritis in gastric body, single ulcer in prepyloric region. Post EGD recs as per GI, no NSAIDS, await path results, clear liquid diet, will need repeat EGD to assess for malignancy and if excluded will likely need esophageal dilation, this best to be done at a tertiary care center that can comanage his underlying liver disease. Patient afterwards tolerated clear liquids but had trouble with full liquids. Biopsy results as reported to GI noted poorly differentiated squamous cell carcinoma. Recommending transfer to [facility] for further workup of his cancer and dysphagia in the setting of alcoholic cirrhosis. For alcoholic cirrhosis was recommended to undergo q6h month hepatic u/s screen. Hepatitis panel was negative. On CT scan was noted to have a filling defect in the main portal vein. Abd U/S noted no obvious portal vein thrombosis and rest of report as below. Spoken with radiology at this facility and reviewed images and no noted portal vein thromobosis as per report and review of images. Advised by GI to transfer to [facility]. Transfer center called and spoken with Dr. Ananda Gonzalez who accepted the patient to his service. IMAGING: Abd/pelvis CT Included distal esophagus is not dilated. Further evaluation of the esophagus is recommended due to significant dilatation of the proximal and mid esophagus down to the level of the heena, seen on the CT scan of the neck, to rule out mid esophageal obstruction. Evaluate for a stricture or malignancy. Approximately 5 mm pulmonary nodule in the right middle lobe which is nonspecific. Small liver with mild decreased attenuation and nodularity of its contour consistent with liver cirrhosis. There are also multiple small calcific densities in the liver parenchyma compatible with granulomas. There is questionable filling defect in the main portal vein for which correlation with ultrasound is needed to rule out thrombosis. There are multiple calcific densities in the spleen compatible with granulomas. There is no evidence of small bowel obstruction. A few scattered diverticula in the colon without evidence of acute diverticulitis. Small fat-containing right inguinal hernia Soft Tissue CT Significantly dilated proximal esophagus down to the level of the heena with debris is, fluid and an air-fluid level which further evaluation is strongly recommended No discrete mass lesion or enlarged lymph nodes are identified. Tiny calcified plaque at the right common carotid bifurcation Abdominal Ultrasound No obvious portal vein thrombosis is identified however supplemental evaluation utilizing contrast enhanced multiphase MRI or CT is suggested. Cholelithiasis. Mild diffuse gallbladder wall thickening is noted without obvious interval change in comparison to a 2017 ultrasound study. Possible choledocholithiasis on CT also not be visualized on the current ultrasound exam. MRI/MRCP evaluation is suggested. Hepatic cirrhosis. Small calcified hepatic granulomas. Date of Admission:11/05/19 Date of Discharge: 11/07/19 Minutes to complete discharge: 40 Discharge Summary Problems reviewed: Yes Reason For Visit: VOMITING Current Active Problems Cirrhosis (Acute) Esophageal ulcer (Acute) Condition: Stable - Instructions Diet, Activity, Other Instructions: You were admitted because you were having difficulty swallowing. You had an endoscopy (camera procedure to look in the upper part of your gastrointestinal system) which showed that you had some abnormalities which may represent a mass in your esophagus and some abnormalities in your stomach. You are recommended to have another endoscopy at a larger hospital that has a service which can co- manage your liver medical problems as well as the endoscopy. You had a CT scan of your abdomen which showed some abnormalities of your veins in your abdomen. A follow ultrasound did not show any clots in your vein but you are recommended to have an MRI or CT scan in the future to evaluate this vein further. You are also recommended to have an MRCP (MRI of your abdomen) to evaluate your gallbladder and biliary duct system further. You are being transferred to [facility] for further evaluation of your mass in your esophagus to the service of Dr. Ananda Gonzalez. MEDICATIONS Continue to take all of your home medications as prescribed. REFERRALS Please follow up with your primary care physician, Dr. Kramer, within 1 week. Please follow up with the induction heating equipment setter, Dr. Ananda Gonzalez. You have an appointment on November 20 at 11:20. Please follow up with the oncologist, Dr. Darling, within 1 week. SPECIAL INSTRUCTIONS You are advised to cease using alcohol especially in the setting of your liver disease. If you have any further symptoms of difficulty swallowing, continued vomiting, fevers, chest pain, shortness of breath, or any other general feelings of unwellness, please call 911 or go your nearest emergency room. Referrals: Stormy Zuniga MD [Primary Care Provider] - 1 Week Ananda Gonzalez [Other] - 1 Week Disposition: TRANSFER ACUTE CARE/OTHER HOSP - Home Medications Comprehensive Discharge Medication List: Ambulatory Orders Albuterol Sulfate [Proair Hfa] 1 - 2 puff IH Q6H PRN 11/05/19 Budesonide/Formeterol Fumarate [SYMBICORT 160/4.5mcg -] 1 puff IH DAILY Famotidine [Pepcid] 20 mg PO DAILY 11/05/19 Meclizine HCl 25 mg PO BID 11/05/19 Pantoprazole Sodium 40 mg PO DAILY 11/05/19 Valsartan 320 mg PO DAILY 11/05/19 Diclofenac Sodium [Voltaren] 100 gm TP BID 11/07/19 Ergocalciferol (Vitamin D2) [Vitamin D2] 2,000 unit PO WEEKLY 11/07/19 Famotidine [Pepcid -] 40 mg PO DAILY 11/07/19 Furosemide [Lasix] 40 mg PO Q2D 11/07/19 Metoprolol Succinate [Kapspargo Sprinkle] 25 mg PO DAILY 11/07/19 Pantoprazole Sodium [Protonix -] 40 mg PO BID #4 tablet.ec 11/07/19 This patient is new to me today: No Emergency Visit: Yes ED Registration Date: 11/05/19 Care time: The patient presented to the Emergency Department on the above date and was hospitalized for further evaluation of their emergent condition. Critical Care patient: No - Discharge Referral Referred to [facility] Med P.C.: No
--- NOTE | 2019-11-07 17:59 | PN ---
Teaching Attending Note Name of Resident: Warner Espino ATTENDING PHYSICIAN STATEMENT I saw and evaluated the patient. I reviewed the resident's note and discussed the case with the resident. I agree with the resident's findings and plan as documented. 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 Denies significant weight loss Co- morbid - cirrhosis with esophageal varices, HBP, COPD Current Medications Generic Name Dose Route Start Last Admin Trade Name Freq PRN Reason Stop Dose Admin Albuterol Sulfate 1 - 2 puff 11/05/19 18:15 Ventolin Hfa Inhaler - IH Q6H PRN SHORT OF BREATH/WHEEZING Budesonide/Formoterol Fumarate 2 puff 11/06/19 10:00 11/07/19 09:16 Symbicort 160/4.5mcg - IH 2 puff BID VALENCIA Administration Meclizine HCl 25 mg 11/06/19 22:00 11/07/19 09:16 Antivert - PO 25 mg BID VALENCIA Administration Pantoprazole Sodium 40 mg 11/07/19 22:00 Protonix - PO 11/08/19 22:00 BID VALENCIA Pantoprazole Sodium 40 mg 11/09/19 10:00 Protonix - PO DAILY VALENCIA Sucralfate 1 gm 11/07/19 22:00 Carafate Oral Suspension - PO BID VALENCIA Valsartan 320 mg 11/07/19 10:00 11/07/19 09:17 Diovan - PO 320 mg DAILY VALENCIA Administration Last Vital Signs Temp Pulse Resp BP Pulse Ox 97.4 F L 63 20 112/52 L 98 11/07/19 14:53 11/07/19 14:53 11/07/19 14:53 11/07/19 14:53 11/06/19 23:49 HEENT: ANTONIO, EOM Intact Oropharynx: No thrush, No mucositis,edentulous Neck: Supple Bilateral gynecomastia Cor: RSR, No murmurs, No gallops Lungs:Rales at both bases Abd: Soft, Normal bowel sounds, No organomegaly testes descended, atrophic, uncircumcised Ext:No significant edema, early clubbing Skin: No rashes, Integument intact CBC, BMP 11/07/19 07:50 11/07/19 07:50 Impression: Mid -esophageal SCC at 22-25 cm presenting as a food impaction. Doubt surgical candidate in view of location of tumor, age, co morbidities with cirrhosis, varices and thrombocytopenia. Would likely be a candidate for RT/Chemotherapy Would obtain CT chest. RT notified Can consider stent to aid nutrition and EUS for staging. OBJECTIVE: ASSESSMENT AND PLAN:
--- NOTE | 2019-11-07 19:49 | PN ---
Teaching Attending Note Name of Resident: Warner Arredondo ATTENDING PHYSICIAN STATEMENT I saw and evaluated the patient. I reviewed the resident's note and discussed the case with the resident. I agree with the resident's findings and plan as documented. SUBJECTIVE: Patient is on liquid diet. Vital Signs Temperature 97.4 F L 11/07/19 14:53 Pulse Rate 63 11/07/19 14:53 Respiratory Rate 20 11/07/19 14:53 Blood Pressure 112/52 L 11/07/19 14:53 O2 Sat by Pulse Oximetry (%) 98 11/06/19 23:49 GENERAL: The patient is awake, alert, and fully oriented, in no acute distress. HEAD: Normal with no signs of trauma. EYES: PERRL, extraocular movements intact, sclera anicteric, conjunctiva clear. ENT: Ears normal, oropharynx clear without exudates, moist mucous membranes. NECK: Trachea midline, full range of motion, supple. LUNGS: Breath sounds equal, clear to auscultation bilaterally, no wheezes, no crackles, no accessory muscle use. HEART: Regular rate and rhythm, S1, S2 without murmur, rub or gallop. ABDOMEN: Soft, Nt,ND, normoactive bowel sounds, no guarding, no rebound, no hepatosplenomegaly, no masses. EXTREMITIES: 2+ pulses, warm, well-perfused, no edema. NEUROLOGICAL: Cranial nerves II through XII grossly intact. Normal speech, gait not observed. PSYCH: Normal mood, normal affect. SKIN: Warm, dry, normal turgor, no rashes or lesions noted CBCD WBC 11.5 K/mm3 (4.0-10.0) H 11/05/19 12:00 RBC 4.66 M/mm3 (4.00-5.60) 11/05/19 12:00 Hgb 13.8 GM/dL (11.7-16.9) 11/05/19 12:00 Hct 41.9 % (35.4-49) 11/05/19 12:00 MCV 89.9 fl (80-96) 11/05/19 12:00 MCHC 32.8 g/dl (32.0-35.9) 11/05/19 12:00 RDW 16.9 % (11.9-15.9) H 11/05/19 12:00 Plt Count 115 K/MM3 (134-434) L D 11/05/19 12:00 MPV 9.6 fl (7.5-11.1) 11/05/19 12:00 CMP Sodium 146 mmol/L (136-145) H 11/05/19 12:00 Potassium 4.2 mmol/L (3.5-5.1) 11/05/19 12:00 Chloride 114 mmol/L (98-107) H 11/05/19 12:00 Carbon Dioxide 26 mmol/L (21-32) 11/05/19 12:00 Anion Gap 6 MMOL/L (8-16) L 11/05/19 12:00 BUN 27.8 mg/dL (7-18) H 11/05/19 12:00 Creatinine 1.1 mg/dL (0.55-1.3) 11/05/19 12:00 Random Glucose 113 mg/dL (74-106) H 11/05/19 12:00 Calcium 8.6 mg/dL (8.5-10.1) 11/05/19 12:00 Total Bilirubin 5.6 mg/dL (0.2-1) H 11/05/19 12:00 AST 37 U/L (15-37) 11/05/19 12:00 ALT 45 U/L (13-61) 11/05/19 12:00 Alkaline Phosphatase 163 U/L (45-117) H 11/05/19 12:00 Total Protein 7.8 g/dl (6.4-8.2) 11/05/19 12:00 Albumin 3.0 g/dl (3.4-5.0) L 11/05/19 12:00 Current Medications Generic Name Dose Route Start Last Admin Trade Name Freq PRN Reason Stop Dose Admin Albuterol Sulfate 1 - 2 puff 11/05/19 18:15 Ventolin Hfa Inhaler - IH Q6H PRN SHORT OF BREATH/WHEEZING Budesonide/Formoterol Fumarate 2 puff 11/06/19 10:00 Symbicort 160/4.5mcg - IH BID VALENCIA Dextrose/Sodium Chloride 1,000 mls @ 50 mls/hr 11/05/19 18:15 11/06/19 04:27 D5-Ns - IV 50 mls/hr ASDIR VALENCIA Administration Pantoprazole Sodium 40 mg 11/06/19 10:00 Protonix Iv IVPUSH DAILY [facility] Home Medications Medication Instructions Recorded Albuterol Sulfate [Proair Hfa] 1 - 2 puff IH Q6H PRN 11/05/19 Budesonide/Formeterol Fumarate 1 puff IH DAILY 11/05/19 [SYMBICORT 160/4.5mcg -] Famotidine [Pepcid] 20 mg PO DAILY 11/05/19 Meclizine HCl 25 mg PO BID 11/05/19 Pantoprazole Sodium 40 mg PO DAILY 11/05/19 Valsartan 320 mg PO DAILY 11/05/19 US of abdomen: hepatic cirrhosi , small calcified hepatic granuloma, no thrombosis. + cholelithiasis, mild diffuse gallbladder wall thickening ASSESSMENT AND PLAN: Patient is a 79yom with a PMHx of GERD, HLD, asthma, HTN, cataract in L eye, CHF , COPD, alcoholic liver cirrhosis admitted for progressive dysphagia. # S/p EGD due to having Progressive dysphagia: on clears now, discussed wit dr Ernandez reg. pathology result positive for Scc of esophagus, oncology consult. appreciated, patient presented with food impaction with hx of smoking and drinking. as per GI , patient needs to be transferred to [facility] for further w/u for possible stent to aid nutrition and EUS for staging. [facility]. #Cirrhosis: Etoh induced , full Hepatitis panel ordered , lactulose PRN for BM, hold off on diuretics for now patient does not have ascites #COPD/asthma: not in acute exacerbation, continue home Symbicort , Albuterol #Diastolic CHF:stable #GERD: IV PPI DVT ppx: SCD
[2019-11-07] MEDS ORDERED: SUCRALFATE 1 GM/10 ML UNIT DOSE CUPS PO SCH (22:00)
[2019-11-07] MEDS ORDERED: PANTOPRAZOLE 40 MG TABLET PO SCH (22:00)
[2019-11-08] MEDS ORDERED: PANTOPRAZOLE 40 MG TABLET PO SCH (10:00)
[2019-11-09] MEDS ORDERED: PANTOPRAZOLE 40 MG TABLET PO SCH (10:00)
--- NOTE | 2019-11-11 16:09 | PATH ---
Surgical Pathology Report Patient Name: DARRYL PEDERSEN Med. Rec. #: [id number] /Age/Gender: 1940 (Age: 79) / M Account: [id number] Location: [address] [place] [address]/[facility] Taken: 11/06/2019 Received: 11/06/2019 Reported: 11/11/2019 Physicians: Ruddy Lowe D.O. Specimen(s) Received A: ANTRAL ULCER B: BODY C: ESOPHAGEAL ULCER Clinical History Dysphagia Postoperative diagnosis: Food impaction, gastritis, gastric ulcer, esophageal varices Final Diagnosis A. STOMACH, ANTRAL ULCER, BIOPSY: GASTRIC ANTRAL MUCOSA WITH MILD CHRONIC GASTRITIS AND REACTIVE CHANGES. IMMUNOHISTOCHEMICAL STAIN FOR H. PYLORI IS NEGATIVE. B. STOMACH, ANGULARIS AND BODY, BIOPSY: GASTRIC BODY MUCOSA WITH MODERATE CHRONIC FOCAL ACTIVE GASTRITIS. IMMUNOHISTOCHEMICAL STAIN FOR H. PYLORI IS NEGATIVE. C. PROXIMAL ESOPHAGUS, ESOPHAGEAL ULCER, BIOPSY: SQUAMOUS CELL CARCINOMA, POORLY DIFFERENTIATED, WITH ASSOCIATED ULCERATION. Comment: Case seen in intradepartmental review with consensus on diagnosis. Findings discussed with Dr. Lowe, 11/07/19. Immunohistochemical stains performed at [place], [place] ([id number]) and interpreted at [facility]. Positive and negative controls (internal if applicable) show appropriate results. Electronically Signed Elizabeth Taylor M.D. Gross Description A. Received in formalin, labeled "biopsy antral ulcer" is a evans, irregular portion of soft tissue measuring 0.5 cm. in greatest dimension. The specimen is submitted in toto in one cassette. B. Received in formalin, labeled "biopsy angularis and body" are 3 evans, irregular portions of soft tissue ranging from 0.1-0.2 cm. in greatest dimension. The specimens are submitted in toto in one cassette. C. Received in formalin, labeled "biopsy esophageal ulcer proximal esophagus" are 3 evans, irregular portions of soft tissue ranging from 0.1-0.5 cm. in greatest dimension. The specimens are submitted in toto in one cassette. 11/06/2019 saudi11/06/2019
== END 2019-11-07 19:24 | disposition short-term general hospital (02) | DRG 374 ==
LOC: JER 09:07 → JERBED 16:49 → J6S 22:05
PROVIDERS: ATTEND Internal Medicine
PROC: 0DC58ZZ Extirpation of Matter from Esophagus, Via Natural or Artificial Opening Endoscopic (ICD-10-PCS; 2019-11-06)
PROC: 0DB68ZX Excision of Stomach, Via Natural or Artificial Opening Endoscopic, Diagnostic (ICD-10-PCS; principal; 2019-11-06 10:30)
DX: C15.9 Malignant neoplasm of esophagus, unspecified (principal); I81 Portal vein thrombosis; K22.10 Ulcer of esophagus without bleeding; F10.99 Alcohol use, unspecified with unspecified alcohol-induced disorder; I50.30 Unspecified diastolic (congestive) heart failure; I85.10 Secondary esophageal varices without bleeding; K70.30 Alcoholic cirrhosis of liver without ascites; I11.0 Hypertensive heart disease with heart failure; K21.9 Gastro-esophageal reflux disease without esophagitis; E78.5 Hyperlipidemia, unspecified; J44.9 Chronic obstructive pulmonary disease, unspecified; H26.9 Unspecified cataract; R13.10 Dysphagia, unspecified; K25.9 Gastric ulcer, unspecified as acute or chronic, without hemorrhage or perforation; K29.70 Gastritis, unspecified, without bleeding; Z87.891 Personal history of nicotine dependence
CPT/HCPCS: 36415; 70491-TC; 71046-TC-FY; 74177-TC; 76705-TC; 80053; 80074; 83690; 83735; 85025; 85610; 85730; 86803; 86850; 86900; 86901; 88305-TC; 93005; 93010; 97116-GP; 97161-GP; 99285-25; J7030; Q9967

== ENCOUNTER 2020-05-14 12:42 | Emergency (ER) | payer OTHER ==
--- NOTE | 2020-05-14 13:00 | PDOC ---
History of Present Illness - General Chief Complaint: Pain, Acute Stated Complaint: PAIN Time Seen by Provider: 05/14/20 12:59 History Source: Patient Exam Limitations: Language Barrier (Tuvaluan, used mechanical meter tester) - History of Present Illness Initial Comments: 05/14/20 12:59 HPI: This is a 80 y/o male with a PMH of Covid in November, alcoholic cirrhosis, e sophogeal SCC s/p PEG, HTN, HLD, COPD, CHF, GERD, and asthma BIBA from home due to 7/10 constant central chest pain, and R. shoulder pain. He states that the pain has been intermittent since October when he was hospitalized for a food impaction because of an esophageal stricture. The pain has worsened and become constant over the past three days. He is also complaining of left sided chest pain and cough which is also present at baseline and worse recently. He denies N/V, fever/chills, abdominal pain. ROS: GENERAL/CONSTITUTIONAL: No fever/chills. No weakness. HEAD, EYES, EARS, NOSE AND THROAT: No sore throat. No pain with swallowing. CARDIOVASCULAR: Yes chest pain. No increased SOB from baseline. RESPIRATORY: Yes cough GASTROINTESTINAL: No nausea, vomiting GENITOURINARY: No dysuria, hematuria HEME: No easy bleeding, no hx DVT MUSCULOSKELETAL: Right shoulder pain SKIN: No rash NEUROLOGIC: No headache, or change in strength/sensation. PMH: Covid in November, alcoholic cirrhosis, esophogeal SCC s/p PEG, HTN, HLD, COPD, CHF, GERD, and asthma PSx: PEG tube, Social Hx: Denied tobacco and drugs. Admits to Etoh Meds: See nurse note Allergies: KNDA PE: GENERAL: Awake, alert, and fully oriented, in no acute distress. Patient is primarily Tuvaluan speaking, had to use mechanical meter tester. Patient is non-toxic appearing. HEAD: No signs of trauma EYES: PERRLA, EOMI ENT: Moist mucosa NECK: Normal ROM, supple LUNGS: Crackles in R. lung. HEART: Regular rate and rhythm, normal S1 and S2. Chest pain is not reproducible with palpation. ABDOMEN: Soft, nontender, normoactive bowel sounds. No guarding, no rebound. No masses EXTREMITIES: Bilateral lower extremity edema NEUROLOGICAL: Cranial nerves II through XII grossly intact. Normal speech SKIN: Warm, Dry, normal turgor, no rashes or lesions noted. MDM: 05/14/20 14:06 This is a 80 y/o male with a PMH of Covid in November, alcoholic cirrhosis, esophogeal SCC s/p PEG, HTN, HLD, COPD, CHF, GERD, and asthma BIBA from home due to 7/10 constant central chest pain, and R. shoulder pain. He states that the pain has been intermittent since October when he was hospitalized for a food impaction because of an esophageal stricture. The pain has worsened and become constant over the past three days. He is also complaining of left sided chest pain and cough which is also present at baseline and worse recently. He denies N/V, fever/chills, abdominal pain. This patient's complaints seem to chronic since October when he had a food impaction due to a stricture and esophogeal stent placed, but with an increase in intensity and persistence over the past 3 days. Given his extensive cardiac hx will not r/o cardiac pain ddx: GERD, stricture, impaction, pancreatitis, acs - EKG - CXR - CBC - CMP - Cardiac panel - Lipase - Tylenol and famotidine 05/14/20 15:12 - Hb 11.1 which is improved from baseline - Alk phos elevated but baseline - Lipase neg - EKG with no acute changes - HEART score of 3. - Patient reports improvement in pain with tylenol, famotidine, and lidoderm patch. 05/14/20 16:00 CXR: Impression: No acute chest pathology. Esophageal stent - The symptoms aren't new from what he has experienced since his stent placement. The shoulder pain is likely MSK related. - Patient is ok to d/c with return precautions - Will send lidoderm patches to pharmacy 05/15/20 19:57 Past History - Medical History Allergies/Adverse Reactions: Allergies Allergy/AdvReac Type Severity Reaction Status Date / Time No Known Allergies Allergy Verified 11/05/19 09:21 Home Medications: Ambulatory Orders Furosemide 40 mg PO DAILY 01/18/20 Metoprolol Tartrate 25 mg PO DAILY 01/18/20 Valsartan 320 mg PO DAILY 01/18/20 Albuterol Sulfate Inhaler - [Ventolin Hfa Inhaler -] 2 inh PO Q4H 05/14/20 Budesonide/Formeterol Fumarate [SYMBICORT 160/4.5mcg -] 1 inh PO BID 05/14/20 Lidocaine 5% Patch [Lidoderm Patch -] 1 patch TP DAILY #7 patch 05/14/20 Oxybutynin Chloride [Oxybutynin Chloride ER] 10 mg PO DAILY 05/14/20 Pantoprazole Sodium [Protonix] 40 mg PO DAILY 05/14/20 Tamsulosin HCl [Flomax] 0.4 mg PO DAILY 05/14/20 Anemia: No Asthma: Yes Cancer: No Cardiac Disorders: No CVA: No COPD: Yes CHF: No Dementia: No Diabetes: No GI Disorders: Yes (ACID REFLUX) Disorders: Yes (OVERACT BLADDER) HTN: Yes Hypercholesterolemia: Yes Liver Disease: Yes (CIRRHOSIS,FATTY LIVER) Seizures: No Thyroid Disease: No - Surgical History Abdominal Surgery: Yes Appendectomy: No Cardiac Surgery: No Cholecystectomy: No Lung Surgery: No Neurologic Surgery: No Orthopedic Surgery: Yes (R LEG ORIF) - Immunization History Immunization Up to Date: Yes - Psycho-Social/Smoking History Smoking History: Former smoker Have you smoked in the past 12 months: No Number of Cigarettes Smoked Daily: 0 If you are a former smoker, when did you quit?: Cigars Per Day: 0 Heart Score/ECG Review - History History: Slightly suspicious - Electrocardiogram EKG: Normal - Age Age: >/= 65 - Risk Factors Risk Factors Heart Score: Yes Hx Hypercholesterolemia, Yes Hx Hypertension Based on the list above the patient has:: 1-2 risk factors - Troponin Troponin: </= normal limit - Score Heart Score - Total: 3 ED Treatment Course - LABORATORY CBC & Chemistry Diagram: 05/14/20 14:00 05/14/20 14:29 Discharge - Discharge Information Problems reviewed: Yes Clinical Impression/Diagnosis: Back pain Qualifiers: Back pain location: back pain in unspecified location Chronicity: acute Back pain laterality: right Qualified Code(s): M54.9 - Dorsalgia, unspecified Chest pain Qualifiers: Chest pain type: unspecified Qualified Code(s): R07.9 - Chest pain, unspecified Condition: Stable Disposition: HOME - Admission No - Additional Discharge Information Prescriptions: Lidocaine 5% Patch [Lidoderm Patch -] 1 patch TP DAILY #7 patch - Follow up/Referral - Patient Discharge Instructions Patient Printed Discharge Instructions: DI for Chest Pain, DI for Thoracic Back Pain Additional Instructions: You were seen in the ED today because of chest pain that you have had before. We checked your labs and everything was okay. We sent lidoderm patches to your pharmacy. You can take tylenol over the counter. You can take 600mg every 6-8 hours as needed for pain. Please make an appointment with your brick stacker in the next week. Please return to the ED with any new or concerning symptoms. Hoy lo vieron en el servicio de urgencias debido a un dolor en el pecho que murphy tenido antes. Revisamos johnny laboratorios y todo estuvo simin. Enviamos parches de lidoderm a araujo farmacia. Puede hamlet tylenol sin receta. Puede hamlet 600 mg cada 6 a 8 horas segn sea necesario para el dolor. Franck christopher nikki con araujo gastroenterlogo la prxima semana. Regrese al servicio de urgencias con cualquier sntoma nuevo o preocupante. Print Language: KINYARWANDA - Post Discharge Activity
[2020-05-14 13:03] VITALS: TEMP 98.7; BMI 30.5
--- NOTE | 2020-05-14 13:13 | PDOC ---
Attending Attestation - Resident Resident Name: LucyLo - ED Attending Attestation I have performed the following: I have examined & evaluated the patient, The case was reviewed & discussed with the resident, I agree w/resident's findings & plan - HPI HPI: 05/14/20 13:18 80 year old male with history of Alcohol related Liver Cirrhosis, Esophageal Squamous Cell Carcinoma (s/p CTx, last 10 days ago), s/p PEG, HTN, HLD, COPD, CHF, GERD, recent admission for Dysphagia 11/13 - transferred to [facility] for Esophageal Mass workup in December 2019, presenting with back pain and 7/10 constant central chest pain, and R. shoulder pain. He states that the pain has been intermittent since October when he was hospitalized for a food impaction because of an esophageal stricture. The pain has worsened and become constant over the past three days. He is also complaining of chest pain and cough which is also present at baseline and worse recently. He denies N/V, fever/chills, abdominal pain. 05/14/20 15:17 05/14/20 15:18 - Physicial Exam PE: 05/14/20 13:13 Agree with the resident's HPI and PE as documented in the electronic medical record. NAD, well appearing, EOMI, PERRL, nl conjunctiva, anicteric; neck supple. lungs clear, RRR, abdomen soft nontender. no rebound, guarding. PEG tube in place. Back mild tenderness in right lateral thoracic back, reproducible. JAIMES x4, no focal neuro deficits. No peripheral edema. normal color for ethnicity, WWP. 05/14/20 15:15 - Medical Decision Making 05/14/20 13:13 Vital Signs Temp Pulse Resp BP Pulse Ox 98.7 F 68 18 157/76 98 05/14/20 12:55 05/14/20 12:55 05/14/20 12:55 05/14/20 12:55 05/14/20 12:55 05/14/20 15:16 Vital signs reviewed unremarkable, no fevers. There is no abdominal tenderness, PEG tube is in place. no rebound or guarding, no focal tenderness does have chronic dysphagia/epigastric discomfort, worse with food intake likely from his esophageal mass no bleeding, no peritoneal findings Patient does have some acute on chronic back pain, appears mostly musculoskeletal Laboratory results are within normal limits Troponin is negative. Given Pepcid, analgesia, topical Lidoderm patch and reassess cxr unremarkable, in place esophageal stent. pain improved, well appearing clinically at baseline status heart score is 3, with neg trop, low risk for MACE at 4-6 weeks and unlikely ACS can DC with one trop, sx have been present x several months chronically Pt to be discharged in stable condition. Patient made aware of clinical impression, treatment recommendations and disposition plan, return precautions discussed (including but not limited to new or persistent/worsening symptoms, pain, fevers, or signs of infection, chest pain, respiratory distress, inability to tolerate oral intake, dehydration, syncope, or neurologic changes). Follow up with PMD and/or specialist at [facility] as recommended, follow up information provided, take medications as instructed for duration of time. continue with supportive care, avoid triggers and precipitants. All questions answered to patient's satisfaction and expressed understanding and comfort with this. At the time of discharge, the patient is alert, clinically improved, tolerating po and verbalizes understanding of instructions, satisfied with the care received and felt comfortable with the plan. Patient does not suffer from an acute life- threatening medical condition at this time and is safe for outpatient follow- up. 05/14/20 16:04 05/14/20 16:05 Heart Score/ECG Review - History History: Slightly suspicious - Electrocardiogram EKG: Normal - Age Age: >/= 65 - Risk Factors Risk Factors Heart Score: Yes Hx Hypercholesterolemia, Yes Hx Hypertension Based on the list above the patient has:: 1-2 risk factors - Troponin Troponin: </= normal limit - Score Heart Score - Total: 3 #1 ECG reviewed & interpreted by me at: 14:15 General ECG Interpretation: Sinus Rhythm, Normal Rate, No acute ischemic changes Compared to previous ECG there are: No significant change 05/14/20 15:15 Gabriel EKG normal sinus rhythm 63 bpm, no interval abnormalities, narrow QRS, ST and T wave segments and morphology normal. Discharge - Discharge Information Problems reviewed: Yes Clinical Impression/Diagnosis: Back pain Qualifiers: Back pain location: back pain in unspecified location Chronicity: acute Back pain laterality: right Qualified Code(s): M54.9 - Dorsalgia, unspecified Chest pain Qualifiers: Chest pain type: unspecified Qualified Code(s): R07.9 - Chest pain, unspecified Condition: Stable Disposition: HOME - Admission No - Additional Discharge Information Prescriptions: Lidocaine 5% Patch [Lidoderm Patch -] 1 patch TP DAILY #7 patch - Follow up/Referral - Patient Discharge Instructions Patient Printed Discharge Instructions: DI for Thoracic Back Pain, DI for Chest Pain Additional Instructions: You were seen in the ED today because of chest pain that you have had before. We checked your labs and everything was okay. We sent lidoderm patches to your pharmacy. You can take tylenol over the counter. You can take 600mg every 6-8 hours as needed for pain. Please make an appointment with your kennel supervisor in the next week. Please return to the ED with any new or concerning symptoms. Hoy lo vieron en el servicio de urgencias debido a un dolor en el pecho que murphy tenido antes. Revisamos johnny laboratorios y todo estuvo simin. Enviamos parches de lidoderm a araujo farmacia. Puede hamlet tylenol sin receta. Puede hamlet 600 mg cada 6 a 8 horas segn sea necesario para el dolor. Franck christopher nikki con araujo gastroenterlogo la prxima semana. Regrese al servicio de urgencias con cualquier sntoma nuevo o preocupante. Print Language: CHINESE - Post Discharge Activity
[2020-05-14] MEDS ORDERED: ACETAMINOPHEN 1000 MG/100 ML VIAL (NON FORMULARY) IVPB ONE (13:45)
[2020-05-14] MEDS ORDERED: FAMOTIDINE 20 MG/50 ML IVPB 20 MG/50 ML MG IVPB ONE ×2 (13:45→14:12)
[2020-05-14] MEDS ORDERED: LIDOCAINE 5% TOPICAL PATCH TP ONE (13:50)
[2020-05-14] MEDS ORDERED: ACETAMINOPHEN 160 MG/5 ML *Children Solution PO ONE (13:51)
[2020-05-14] MEDS ORDERED: LIDOCAINE 5% TOPICAL PATCH ONE (14:09)
[2020-05-14 14:55] LABS: BASO % 1.1 % (0-2.0); EOS % 5.1 % (0-4.5); HEMATOCRIT 34.5 % (35.4-49); HEMOGLOBIN 11.1 GM/dL (11.7-16.9); LYMPH % 11.5 % (8-40); MCH 28.7 pg (25.7-33.7); MCHC 32.1 g/dl (32.0-35.9); MEAN CELL VOLUME 89.3 fl (80-96); MEAN PLT VOLUME 9.1 fl (7.5-11.1); MONO % 13.7 % (3.8-10.2); NEUT % 68.6 % (42.8-82.8); PLATELET COUNT 117 K/MM3 (134-434); RBC 3.86 M/mm3 (4.00-5.60); RDW 16.8 % (11.9-15.9); WHITE BLOOD COUNT 4.6 K/mm3 (4.0-10.0)
[2020-05-14 15:20] LABS: ALBUMIN 2.3 g/dl (3.4-5.0); ALK PHOS 230 U/L (45-117); ANION GAP 4 MMOL/L (8-16); BILIRUBIN,TOTAL 1.2 mg/dL (0.2-1); BLOOD UREA NITROGEN 11.1 mg/dL (7-18); CALCIUM 8.5 mg/dL (8.5-10.1); CHLORIDE 108 mmol/L (98-107); CO2 29 mmol/L (21-32); CREATININE 0.7 mg/dL (0.55-1.3); GLUCOSE,RANDOM 114 mg/dL (74-106); LIPASE 173 U/L (73-393); POTASSIUM 4.2 mmol/L (3.5-5.1); SGOT/AST 33 U/L (15-37); SGPT/ALT 19 U/L (13-61); SODIUM 141 mmol/L (136-145); TOT PROT 7.5 g/dl (6.4-8.2)
[2020-05-14 16:25] VITALS: BP 178/85; PULSE 63
--- NOTE | 2020-05-17 22:02 | EKG ---
Test Reason : Blood Pressure : / mmHG Vent. Rate : 063 BPM Atrial Rate : 063 BPM P-R Int : 162 ms QRS Dur : 094 ms QT Int : 424 ms P-R-T Axes : 011 026 029 degrees QTc Int : 433 ms SINUS RHYTHM WITH PREMATURE ATRIAL COMPLEXES OTHERWISE NORMAL ECG WHEN COMPARED WITH ECG OF 17-JAN-2020 21:20, PREMATURE ATRIAL COMPLEXES ARE NOW PRESENT Confirmed by KASIE DIAZ MD ([id number]) on 05/17/2020 10:02:02 PM Referred By: Confirmed By:KASIE DIAZ MD
== END 2020-05-14 16:39 | disposition home or self-care (01) ==
LOC: JER 12:42
PROC: 3E033NZ Introduction of Analgesics, Hypnotics, Sedatives into Peripheral Vein, Percutaneous Approach (ICD-10-PCS; principal; 2020-05-14)
PROC: 3E033GC Introduction of Other Therapeutic Substance into Peripheral Vein, Percutaneous Approach (ICD-10-PCS; 2020-05-14)
DX: M54.9 Dorsalgia, unspecified (principal); R07.9 Chest pain, unspecified
CPT/HCPCS: 36415; 71046-TC-FY; 80053; 82550; 83690; 84484; 85025; 93005; 93010; 99285-25

== ENCOUNTER 2020-06-07 08:16 | Inpatient (IN) | payer OTHER ==
[2020-06-07 08:23] VITALS: BMI 25.0
--- OUTSIDE RECORDS SUMMARY | 2020-06-07 08:57 | XMS ---
:1940 Author Organization [facility] Care Team Providers Name Role Phone Chino Kinsey Unavailable [phone] ED STAFF PHYSICIAN, STAFF Unavailable Unavailable ED STAFF PHYSICIANWENDY Unavailable Unavailable MANDIE SHIELDS Unavailable Unavailable ED STAFF PHYSICIAN Unavailable Unavailable Re-disclosure Warning The records that you are about to access may contain information from federally- assisted alcohol or drug abuse programs. If such information is present, then the following federally mandated warning applies: This information has been disclosed to you from records protected by federal confidentiality rules (42 CFR part 2). The federal rules prohibit you from making any further disclosure of this information unless further disclosure is expressly permitted by the written consent of the person to whom it pertains or as otherwise permitted by 42 CFR part 2. A general authorization for the release of medical or other information is NOT sufficient for this purpose. The Federal rules restrict any use of the information to criminally investigate or prosecute any alcohol or drug abuse patient.The records that you are about to access may contain highly sensitive health information, the redisclosure of which is protected by Article 27-F of the [facility] Public Health law. If you continue you may haveaccess to information: Regarding HIV / AIDS; Provided by facilities licensed or operated by the [facility] Office of Mental Health; or Provided by the [facility] Office for People With Developmental Disabilities. If such information is present, then the following [facility] mandated warning applies: This information has been disclosed to you from confidential records which are protected by state law. State law prohibits you from making any further disclosure of this information without the specific written consent of the person to whom it pertains, or as otherwise permitted by law. Any unauthorized further disclosure in violation of state law may result in a fine or prison sentence or both. A general authorization for the release of medical or other information is NOT sufficient authorization for further disclosure. Allergies and Adverse Reactions Type Description Substance Reaction Status Data Source(s ) No Known No Known Allergies No Known eCW3 ( [place] [facility]) No Known No Known Allergies No Known eCW3 ( [place] [facility]) No Known No Known Allergies No Known eCW3 ( [place] [facility]) No Known No Known Allergies No Known eCW3 ( [place] [facility]) No Known No Known Allergies No Known eCW2 ( [place] [facility]) Encounters Encounter Providers Location Date Indications Data Source(s ) Emergency Attender: [facility] H 04/13/2020 [facility] STAFF 11:30:00 AM EDT Medical enter PHYSICIANAttender: - 04/13/2020 STAFF ED STAFF 09:20:00 PM EDT PHYSICIANAdmitter: [facility] STAFF PHYSICIAN Patient discharged. Emergency Attender: [facility] STAFF H 10/30/2019 04:50:00 PM [facility] PHYSICIANAttender: ED STAFF EST - 10/31/2019 [facility] PHYSICIANAttender: STAFF ED 01:08:00 AM EST STAFF PHYSICIANAdmitter: [facility] STAFF PHYSICIAN Patient discharged. Outpatient [facility] 06/25/2019 12:00:00 AM eCW3 ([facility] A28 EDT - 06/25/2019 12:00:00 [facility]) AM EDT Emergency H 06/14/2019 07:23:00 PM [facility] EDT - 06/15/2019 06:12:00 [place] AM EDT Patient discharged. Outpatient [facility] 06/11/2019 eCW3 ([facility] A28 12:00:00 AM EDT - [facility] 06/11/2019 Care) 12:00:00 AM EDT Outpatient 04/25/2019 [facility] 04:46:00 PM EDT Medical C enter Outpatient Attender: MANDIE Kate 04/25/2019 [facility] 08:01:00 AM EDT Medical Center MARTINAdmitter: MANDIE BLAKEReferrer: MANDIE BLAKE Attender: [facility] 04/25/2019 NEXT GEN ([facility] 08:01:00 AM EDT - [facility] 04/25/2019 Medical 08:01:00 AM EDT Center) Outpatient 04/25/2019 [facility] 12:00:00 AM EDT Medical C enter Outpatient Attender: MANDIE Kate 04/21/2019 [facility] [place] [facility] MANDIE 11:20:00 AM EDT Medical Center MARTINAdmitter: MANDIE BLAKEReferrer: MANDIE BLAKE Attender: [place] 04/21/2019 NEXTGEN ( [facility] 11:20:00 AM EDT - [facility] 04/21/2019 Medical 11:20:00 AM EDT Center) Outpatient 04/21/2019 [facility] 10:59:00 AM EDT Medical C enter Outpatient 04/21/2019 [facility] 12:00:00 AM EDT Medical C enter Outpatient [facility] 04/09/2019 eCW3 ([facility] A28 12:00:00 AM EDT [facility] 04/09/2019 Care) 12:00:00 AM EDT Emergency H 04/03/2019 [facility] 08:06:00 PM EDT Medical C enter 04/03/2019 [facility] 12:00:00 AM EDT Medical C enter Emergency H 04/02/2019 [facility] 09:06:00 PM EDT Medical C enter Outpatient [facility] 01/21/2019 eCW3 ([facility] A28 12:00:00 AM EDT - [facility] 01/21/2019 Care) 12:00:00 AM EDT [facility] 10/17/2018 eCW2 ([facility] 12:00:00 AM [facility] Care) [facility] 08/27/2018 eCW2 ([facility] 12:00:00 AM EST [facility] Care) [facility] 07/31/2018 eCW2 ([facility] 12:00:00 AM EST [facility] Care) [facility] 07/05/2018 eCW2 ([facility] 12:00:00 AM EDT [facility]) [facility] 06/04/2018 eCW2 ([facility] 12[facility]00:00 AM EDT [facility]) [facility] 05/24/2018 eCW2 ([facility] 12:00:00 AM EDT [facility]) [facility] 03/06/2018 eCW2 ([facility] 12[facility]00:00 AM EDT [facility]) [facility] 12/24/2017 eCW2 ([facility] 12:00:00 AM EDT [facility]) [facility] 11/21/2017 eCW2 ([facility] 12:00:00 AM EST [facility]) [facility] 11/14/2017 eCW2 ([facility] 12:00:00 AM EST [facility]) [facility] 11/02/2017 eCW2 ([facility] 12:00:00 AM EST [facility]) [facility] 09/10/2017 eCW2 ([facility] 12:00:00 AM EST [facility]) [facility] 09/05/2017 eCW2 ([facility] 12:00:00 AM EST [facility]) [facility] 09/04/2017 eCW2 ([facility] 12:00:00 AM EST [facility]) [facility] 06/14/2017 eCW2 ([facility] 12:00:00 AM EDT [facility]) [facility] 05/23/2017 eCW2 ([facility] 12:00:00 AM EDT [facility]) [facility] 04/24/2017 eCW2 ([facility] 12[facility]00:00 AM EDT [facility]) [facility] 04/18/2017 eCW2 ([facility] 12:00:00 AM EDT [facility]) [facility] 04/11/2017 eCW2 ([facility] 12:00:00 AM EDT [facility]) [facility] 04/06/2017 eCW2 ([facility] 12:00:00 AM EDT [facility]) [facility] 04/05/2017 eCW2 ([facility] 12[facility]00:00 AM EDT [facility]) [facility] 04/03/2017 eCW2 ([facility] 12:00:00 AM EDT [facility]) [facility] 04/02/2017 eCW2 ([facility] 12:00:00 AM EDT [facility]) [facility] 03/14/2017 eCW2 ([facility] 12:00:00 AM EDT [facility]) [facility] 02/20/2017 eCW2 ([facility] 12:00:00 AM EDT [facility]) [facility] 01/10/2017 eCW2 ([facility] 12:00:00 AM EDT [facility]) [facility] 12/18/2016 eCW2 ([facility] 12:00:00 AM EDT [facility]) [facility] 12/15/2016 eCW2 ([facility] 12:00:00 AM EDT [facility]) [facility] 12/12/2016 eCW2 ([facility] 12:00:00 AM EDT [facility]) [facility] 11/28/2016 eCW2 ([facility] 12:00:00 AM EST [facility]) [facility] 11/16/2016 eCW2 ([facility] 12:00:00 AM EST [facility]) [facility] 10/18/2016 eCW2 ([facility] 12:00:00 AM EST [facility]) [facility] 09/27/2016 eCW2 ([facility] 12:00:00 AM EST [facility]) [facility] 09/20/2016 eCW2 ([facility] 12:00:00 AM EST [facility]) [facility] 06/21/2016 eCW2 ([facility] 12:00:00 AM EDT [facility]) [facility] 06/14/2016 eCW2 ([facility] 12:00:00 AM EDT [facility]) [facility] 05/19/2016 eCW2 ([facility] 12:00:00 AM EDT [facility]) [facility] 05/13/2016 eCW2 ([facility] 12:00:00 AM EDT [facility]) [facility] 04/01/2016 eCW2 ([facility] 12:00:00 AM EDT [facility]) [facility] 03/30/2016 eCW2 ([facility] 12:00:00 AM EDT [facility]) [facility] 12/10/2015 eCW2 ([facility] 12:00:00 AM EDT [facility]) [facility] 09/13/2015 eCW2 ([facility] 12:00:00 AM EST [facility]) [facility] 08/13/2015 eCW2 ([facility] 12:00:00 AM EST [facility]) [facility] 07/16/2015 eCW2 ([facility] 12:00:00 AM EDT [facility]) [facility] 07/13/2015 eCW2 ([facility] 12:00:00 AM EDT [facility]) [facility] 06/14/2015 eCW2 ([facility] 12[facility]00:00 AM EDT [facility]) [facility] 06/03/2015 eCW2 ([facility] 12:00:00 AM EDT [facility]) [facility] 04/19/2015 eCW2 ([facility] 12:00:00 AM EDT [facility]) [facility] 04/14/2015 eCW2 ([facility] 12:00:00 AM EDT [facility]) [facility] 04/12/2015 eCW2 ([facility] 12:00:00 AM EDT [facility]) [facility] 02/09/2015 eCW2 ([facility] 12:00:00 AM EDT [facility]) [facility] 02/03/2015 eCW2 ([facility] 12:00:00 AM EDT [facility]) [facility] 01/18/2015 eCW2 ([facility] 12:00:00 AM EDT [facility]) [facility] 01/14/2015 eCW2 ([facility] 12:00:00 AM EDT [facility]) [facility] 01/13/2015 eCW2 ([facility] 12:00:00 AM EDT [facility]) [facility] 01/13/2015 eCW2 ([facility] 12:00:00 AM EDT [facility]) [facility] 01/12/2015 eCW2 ([facility] 12:00:00 AM EDT [facility]) [facility] 01/05/2015 eCW2 ([facility] 12:00:00 AM EDT [facility]) [facility] 12/30/2014 eCW2 ([facility] 12:00:00 AM EDT [facility]) [facility] 12/18/2014 eCW2 ([facility] 12:00:00 AM EDT [facility]) [facility] 12/16/2014 eCW2 ([facility] 12:00:00 AM EDT [facility]) [facility] 12/15/2014 eCW2 ([facility] 12:00:00 AM EDT [facility]) [facility] 11/27/2014 eCW2 ([facility] 12:00:00 AM EST [facility]) [facility] 11/24/2014 eCW2 ([facility] 12:00:00 AM EST [facility]) [facility] 11/20/2014 eCW2 ([facility] 12:00:00 AM EST [facility]) [facility] 11/11/2014 eCW2 ([facility] 12:00:00 AM EST [facility]) [facility] 11/11/2014 eCW2 ([facility] 12:00:00 AM EST [facility]) [facility] 11/03/2014 eCW2 ([facility] 12:00:00 AM EST [facility]) [facility] 10/30/2014 eCW2 ([facility] 12:00:00 AM EST [facility]) [facility] 10/30/2014 eCW2 ([facility] 12:00:00 AM EST [facility]) [facility] 10/16/2014 eCW2 ([facility] 12:00:00 AM EST [facility]) [facility] 10/09/2014 eCW2 ([facility] 12:00:00 AM EST [facility]) [facility] 10/05/2014 eCW2 ([facility] 12:00:00 AM EST [facility]) [facility] 10/02/2014 eCW2 ([facility] 12:00:00 AM EST [facility]) [facility] 09/29/2014 eCW2 ([facility] 12:00:00 AM EST [facility]) [facility] 09/29/2014 eCW2 ([facility] 12:00:00 AM EST [facility]) [facility] 09/29/2014 eCW2 ([facility] 12:00:00 AM EST [facility]) [facility] 09/29/2014 eCW2 ([facility] 12:00:00 AM EST [facility]) [facility] 07/21/2014 eCW2 ([facility] 12:00:00 AM EDT [facility]) [facility] 06/29/2014 eCW2 ([facility] 12:00:00 AM EDT [facility]) [facility] 05/01/2014 eCW2 ([facility] 12:00:00 AM EDT [facility]) [facility] 04/27/2014 eCW2 ([facility] 12:00:00 AM EDT [facility]) [facility] 04/27/2014 eCW2 ([facility] 12:00:00 AM EDT [facility]) [facility] 03/10/2014 eCW2 ([facility] 12:00:00 AM EDT [facility]) [facility] 02/19/2014 eCW2 ([facility] 12:00:00 AM EDT [facility]) [facility] 02/19/2014 eCW2 [facility] 12:00:00 AM EDT [facility]) [facility] 01/15/2014 eCW2 ([facility] 12:00:00 AM EDT [facility]) [facility] 12/19/2013 eCW2 ([facility] 12:00:00 AM EDT [facility]) [facility] 12/18/2013 eCW2 ([facility] 12:00:00 AM EDT [facility]) [facility] 10/21/2013 eCW2 ([facility] 12:00:00 AM EST [facility]) [facility] 10/06/2013 eCW2 ([facility] 12:00:00 AM EST [facility]) [facility] 09/23/2013 eCW2 ([facility] 12:00:00 AM EST [facility]) [facility] 09/10/2013 eCW2 ([facility] 12:00:00 AM EST [facility]) [facility] 08/06/2013 eCW2 ([facility] 12:00:00 AM EST [facility]) [facility] 08/05/2013 eCW2 ([facility] 12:00:00 AM EST [facility]) [facility] 06/17/2013 eCW2 ([facility] 12:00:00 AM EDT [facility]) [facility] 06/13/2013 eCW2 ([facility] 12:00:00 AM EDT [facility]) [facility] 06/05/2013 eCW2 ([facility] 12:00:00 AM EDT [facility]) [facility] 06/05/2013 eCW2 ([facility] 12:00:00 AM EDT [facility]) [facility] 05/14/2013 eCW2 ([facility] 12:00:00 AM EDT [facility]) [facility] 05/13/2013 eCW2 ([facility] 12:00:00 AM EDT [facility]) [facility] 05/13/2013 eCW2 ([facility] 12:00:00 AM EDT [facility]) [facility] 04/11/2013 eCW2 ([facility] 12:00:00 AM EDT [facility]) [facility] 02/26/2013 eCW2 ([facility] 12:00:00 AM EDT [facility]) [facility] 02/05/2013 eCW2 ([facility] 12:00:00 AM EDT [facility]) [facility] 12/26/2012 eCW2 ([facility] 12:00:00 AM EDT [facility]) [facility] 12/18/2012 eCW2 ([facility] 12:00:00 AM EDT [facility]) [facility] 12/10/2012 eCW2 ([facility] 12:00:00 AM EDT [facility]) [facility] 12/05/2012 eCW2 ([facility] 12:00:00 AM EDT [facility]) [facility] 12/03/2012 eCW2 ([facility] 12:00:00 AM EDT [facility]) [facility] 12/03/2012 eCW2 ([facility] 12:00:00 AM EDT [facility]) [facility] 11/26/2012 eCW2 ([facility] 12:00:00 AM EST [facility]) [facility] 11/05/2012 eCW2 ([facility] 12:00:00 AM EST [facility]) [facility] 11/05/2012 eCW2 ([facility] 12:00:00 AM EST [facility]) [facility] 09/02/2012 eCW2 ([facility] 12:00:00 AM EST [facility]) [facility] 08/19/2012 eCW2 ([facility] 12:00:00 AM EST [facility]) [facility] 06/05/2012 eCW2 ([facility] 12:00:00 AM EDT [facility]) [facility] 04/24/2012 eCW2 ([facility] 12:00:00 AM EDT [facility]) [facility] 04/05/2012 eCW2 ([facility] 12[facility]00:00 AM EDT [facility]) [facility] 2012 eCW2 ([facility] 12:00:00 AM EDT [facility]) [facility] 03/11/2012 eCW2 ([facility] 12:00:00 AM EDT [facility]) [facility] 02/22/2012 eCW2 ([facility] 12:00:00 AM EDT [facility]) [facility] 02/12/2012 eCW2 ([facility] 12:00:00 AM EDT [facility]) [facility] 02/05/2012 eCW2 ([facility] 12:00:00 AM EDT [facility]) [facility] 12/22/2011 eCW2 ([facility] 12:00:00 AM EDT [facility]) [facility] 10/27/2011 eCW2 ([facility] 12:00:00 AM EST [facility]) [facility] 10/25/2011 eCW2 ([facility] 12:00:00 AM EST [facility]) [facility] 10/11/2011 eCW2 ([facility] 12:00:00 AM EST [facility]) [facility] 10/10/2011 eCW2 ([facility] 12:00:00 AM EST [facility]) [facility] 09/13/2011 eCW2 ([facility] 12:00:00 AM EST [facility]) [facility] 09/05/2011 eCW2 ([facility] 12:00:00 AM EST [facility]) [facility] 09/04/2011 eCW2 ([facility] 12:00:00 AM EST [facility]) [facility] 06/20/2011 eCW2 ([facility] 12:00:00 AM EDT [facility]) [facility] 06/19/2011 eCW2 ([facility] 12:00:00 AM EDT [facility]) [facility] 06/14/2011 eCW2 ([facility] 12:00:00 AM EDT [facility]) [facility] 05/04/2011 eCW2 ([facility] 12:00:00 AM EDT [facility]) [facility] 04/11/2011 eCW2 ([facility] 12:00:00 AM EDT [facility]) [facility] 03/23/2011 eCW2 ([facility] 12:00:00 AM EDT [facility]) [facility] 03/21/2011 eCW2 ([facility] 12:00:00 AM EDT [facility]) [facility] 03/14/2011 eCW2 ([facility] 12:00:00 AM EDT [facility]) [facility] 03/10/2011 eCW2 ([facility] 12:00:00 AM EDT [facility]) [facility] 02/14/2011 eCW2 ([facility] 12:00:00 AM EDT [facility]) [facility] 02/11/2011 eCW2 ([facility] 12:00:00 AM EDT [facility]) [facility] 01/27/2011 eCW2 ([facility] 12:00:00 AM EDT [facility]) [facility] 12/26/2010 eCW2 ([facility] 12:00:00 AM EDT [facility]) [facility] 12/19/2010 eCW2 ([facility] 12:00:00 AM EDT [facility]) [facility] 12/13/2010 eCW2 ([facility] 12:00:00 AM EDT [facility]) [facility] 11/01/2010 eCW2 ([facility] 12:00:00 AM EST [facility]) [facility] 10/31/2010 eCW2 ([facility] 12:00:00 AM EST [facility]) [facility] 10/31/2010 eCW2 ([facility] 12:00:00 AM EST [facility]) [facility] 10/31/2010 eCW2 ([facility] 12:00:00 AM EST [facility]) [facility] 10/27/2010 eCW2 ([facility] 12:00:00 AM EST [facility]) [facility] 10/24/2010 eCW2 ([facility] 12:00:00 AM EST [facility]) [facility] 07/26/2010 eCW2 ([facility] 12:00:00 AM EDT [facility]) [facility] 07/26/2010 eCW2 ([facility] 12:00:00 AM EDT [facility] [facility] 05[facility] eCW2 ([facility] 12:00:00 AM EDT [facility]) [facility] 05/26/2010 eCW2 ([facility] 12:00:00 AM EDT [facility]) [facility] 05/23/2010 eCW2 ([facility] 12:00:00 AM EDT [facility]) [facility] 04/14/2010 eCW2 ([facility] 12:00:00 AM EDT [facility]) [facility] 03/17/2010 eCW2 ([facility] 12:00:00 AM EDT [facility]) [facility] 02/03/2010 eCW2 ([facility] 12:00:00 AM EDT [facility]) [facility] 02/03/2010 eCW2 ([facility] 12:00:00 AM EDT [facility]) [facility] 01/11/2010 eCW2 ([facility] 12:00:00 AM EDT [facility]) [facility] 01/10/2010 eCW2 ([facility] 12:00:00 AM EDT [facility]) [facility] 01/10/2010 eCW2 ([facility] 12:00:00 AM EDT [facility]) [facility] 01/10/2010 eCW2 ([facility] 12:00:00 AM EDT [facility]) [facility] 01/05/2010 eCW2 ([facility] 12:00:00 AM EDT [facility]) [facility] 12/09/2009 eCW2 ([facility] 12:00:00 AM EDT [facility]) [facility] 11/29/2009 eCW2 ([facility] 12:00:00 AM EST [facility]) [facility] 10/25/2009 eCW2 ([facility] 12:00:00 AM EST [facility]) [facility] 10/25/2009 eCW2 ([facility] 12:00:00 AM EST [facility]) [facility] 10/19/2009 eCW2 ([facility] 12:00:00 AM EST [facility]) [facility] 09/30/2009 eCW2 ([facility] 12:00:00 AM EST [facility]) [facility] 09/30/2009 eCW2 ([facility] 12:00:00 AM EST [facility]) [facility] 08/16/2009 eCW2 ([facility] 12:00:00 AM EST [facility]) [facility] 08/09/2009 eCW2 ([facility] 12:00:00 AM EST [facility]) [facility] 05/18/2009 eCW2 ([facility] 12:00:00 AM EDT [facility]) [facility] 04/27/2009 eCW2 ([facility] 12:00:00 AM EDT [facility]) [facility] 04/27/2009 eCW2 ([facility] 12:00:00 AM EDT [facility]) [facility] 03/18/2009 eCW2 ([facility] 12:00:00 AM EDT [facility]) [facility] 03/15/2009 eCW2 ([facility] 12:00:00 AM EDT [facility]) [facility] 02/18/2009 eCW2 ([facility] 12:00:00 AM EDT [facility]) [facility] 02/08/2009 eCW2 ([facility] 12:00:00 AM EDT [facility]) [facility] 02/04/2009 eCW2 ([facility] 12:00:00 AM EDT [facility]) Immunizations Vaccine Date Status Description Data Source(s) New in 2011. IIV4 06/04/2018 completed eCW3 ([facility] 10:57:00 AM [facility]) IIV3. This is one of two 06/14/2017 completed eCW 3 ([facility] codes replacing CVX 15, 11:40:00 AM EDT [facility]) which is being retired. As of May 1999, a 05/23/2017 completed eCW3 ([facility] 2-dose hepatitis B 10:13:00 AM [facility]) schedule for adolescents (11-15 year olds) was FDA approved for [employer]'s Recombivax HB adult formulation. Use code 43 for the 2-dose. This code should be used for any use of standard adult formulation of hepatitis B vaccine. IIV3. This is one of two 05/13/2016 completed eCW 3 ([facility] codes replacing CVX 15, 09:39:00 AM EDT [facility]) which is being retired. Pneumococcal conjugate PCV 08/13/2015 completed e CW3 ([facility] 13 09:58:00 AM [facility]) New in 2011. IIV4 08/13/2015 completed eCW3 ([facility] 09:58:00 AM [facility]) New in 2011. IIV4 06/29/2014 completed eCW3 ([facility] 01:45:00 PM [facility]) IIV3. This is one of two 08/05/2013 completed eCW 3 ([facility] codes replacing CVX 15, 10:33:03 AM [facility]) which is being retired. IIV3. This vaccine code is 06/05/2012 completed e CW3 ([facility] one of two which replace 11:26:20 AM [facility]) CVX 15, influenza, split virus. IIV3. This is one of two 06/20/2011 completed eCW 3 ([facility] codes replacing CVX 15, 10:06:02 AM [facility]) which is being retired. IIV3. This is one of two 07/26/2010 completed eCW 3 ([facility] codes replacing CVX 15, 08:26:34 AM T [facility]) which is being retired. pneumococcal 03/17/2010 completed eCW3 ([facility] polysaccharide PPV23 08:29:52 AM [facility]) No Known Immunizations completed eCW2 ([facility]) Medications Medication Brand Start Product Dose Route Administrative Pharmacy [facility] Indications Reaction Description Data Name Date Form Instructions Instructions Source(s) Albuterol [place] 03/05/ 3.0 active Albuterol eCW3 0.83 MG/ML 2019 {ml_a Sulfate (2.5 ([place] Inhalant Sulfat 12:00: s_nee MG/3ML) [facility] Solution e (2.5 00 AM ded} 0.083% Health Albuterol MG/3ML EDT Care) Sulfate ) (2.5 0.083% MG/3ML) 0.083% Albuterol Albute 03/05/ 3.0 suspend Albutero l eCW3 0.83 MG/ML rol 2020 {ml_a ed Sulfate (2.5 ([facility] Inhalant Sulfat 12:00: s_nee MG/3ML) [facility] Solution e (2.5 00 AM ded} 0.083% Health Albuterol MG/3ML EDT Care) Sulfate ) (2.5 0.083% MG/3ML) 0.083% Albuterol Alb[place] 3.0 active Albuterol eCW3 0.83 MG/ML rol 2020 {ml_a Sulfate (2.5 ([facility] Inhalant Sulfat 12:00: s_nee MG/3ML) [facility] Solution e (2.5 00 AM ded} 0.083% Health Albuterol MG/3ML EDT Care) Sulfate ) (2.5 0.083% MG/3ML) 0.083% Albuterol Alb[place] 3.0 suspend Albutero l eCW3 0.83 MG/ML rol 2020 {ml_a ed Sulfate (2.5 ([facility] Inhalant Sulfat 12:00: s_nee MG/3ML) [place] [facility] Solution e (2.5 00 AM ded} 0.083% Health Albuterol MG/3ML EDT Care) Sulfate ) (2.5 0.083% MG/3ML) 0.083% Albuterol Alb[place] 3.0 active Albuterol eCW3 0.83 MG/ML rol 2020 {ml_a Sulfate (2.5 ([facility] Inhalant Sulfat 12:00: s_nee MG/3ML) [facility] Solution e (2.5 00 AM ded} 0.083% Health Albuterol MG/3ML EDT Care) Sulfate ) (2.5 0.083% MG/3ML) 0.083% Albuterol [place] 3.0 active Albuterol eCW3 0.83 MG/ML rol 2020 {ml_a Sulfate (2.5 ([facility] Inhalant Sulfat 12:00: s_nee MG/3ML) [place] [facility] Solution e (2.5 00 AM ded} 0.083% Health Albuterol MG/3ML EDT Care) Sulfate ) (2.5 0.083% MG/3ML) 0.083% Bedpan - Bedpan 12/17/ active Bedpan - e CW3 - 2020 ([facility] 12:00: [facility] 00 AM Health EDT Care) Bedpan - Bedpan 12/17/ active Bedpan - e CW3 - 2020 ([facility] 12:00: [facility] 00 AM Health EDT Care) ADULT UNK 12/17/ active ADULT eCW3 DIAPERS 2020 DIAPERS ([facility] 12:00: [facility] 00 AM Health EDT Care) ADULT UNK 12/17/ active ADULT eCW3 DIAPERS 2020 DIAPERS ([facility] 12:00: [facility] 00 AM Health EDT Care) Bedpan - Bedpan 12/17/ active Bedpan - e CW3 - 2020 ([facility] 12:00: [facility] 00 AM Health EDT Care) ADULT UNK 12/17/ active ADULT eCW3 DIAPERS 2020 DIAPERS ([facility] 12:00: [facility] 00 AM Health EDT Care) Bath/Shower Bath/S 11/20/ active Bath/Sh ower eCW3 Seat - hower 2020 Seat - ([facility] Seat - 12:00: [facility] 00 AM Health EST Care) Bath/Shower Bath/S 11/20/ active Bath/Sh ower eCW3 Seat - hower 2020 Seat - ([facility] Seat - 12:00: [facility] 00 AM Health EST Care) Toilet Seat Toilet 11/20/ active Toilet Seat eCW3 Elevator - Seat 2020 Elevator - ([facility] Elevat 12:00: [facility] or - 00 AM Health EST Care) Toilet Seat Toilet 11/20/ active Toilet Seat eCW3 Elevator - Seat 2020 Elevator - ([facility] Elevat 12:00: [facility] or - 00 AM Health EST Care) DIAPERS UNK 11/20/ active DIAPERS eCW3 X-Small - 2020 X-Small - ([facility] X-Large 12:00: X-Large [facility] 00 AM Health EST Care) Toilet Seat Toilet 11/20/ active Toilet Seat eCW3 Elevator - Seat 2019 Elevator - ( dson Elevat 12:00: [facility] or - 00 AM Health EST Care) Bath/Shower Bath/S 11/20/ active Bath/Sh ower eCW3 Seat - hower 2020 Seat - ([facility] Seat - 12:00: [facility] 00 AM Health EST Care) pantoprazol Pantop .0 active Pantopr azole eCW3 e 40 MG razole 2019 {tabl Sodium 40 MG ( [facility] Delayed Sodium 12:00: et} [facility] Release 40 MG 00 AM Health Oral Tablet EST Care) Pantoprazol e Sodium 40 MG pantoprazol Pantop .0 active Pantopr azole eCW3 e 40 MG razole 2019 {tabl Sodium 40 MG ( [facility] Delayed Sodium 12:00: et} [facility] Release 40 MG 00 AM Health Oral Tablet EST Care) Pantoprazol e Sodium 40 MG Famotidine Pepcid .0 suspend Pepcid 40 MG eCW3 40 MG Oral 40 MG 2019 {tabl ed ([facility] Tablet 12:00: et_at [facility] [Pepcid] 00 AM _bedt Health Pepcid 40 EST cecilia} Care) MG Famotidine Pepcid .0 active Pepcid 4 0 MG eCW3 40 MG Oral 40 MG 2020 {tabl ([facility] Tablet 12:00: et_at [facility] [Pepcid] 00 AM _bedt Health Pepcid 40 EST cecilia} Care) MG Famotidine Pepcid .0 active Pepcid 4 0 MG eCW3 40 MG Oral 40 MG 2019 {tabl ([facility] Tablet 12:00: et_at [facility] [Pepcid] 00 AM _bedt Health Pepcid 40 EST cecilia} Care) MG pantoprazol Pantop .0 active Pantopr azole eCW3 e 40 MG razole 2019 {tabl Sodium 40 MG ( [facility] Delayed Sodium 12:00: et} [facility] Release 40 MG 00 AM Health Oral Tablet EST Care) Pantoprazol e Sodium 40 MG Famotidine Pepcid .0 active Pepcid 4 0 MG eCW3 40 MG Oral 40 MG 2019 {tabl ([facility] Tablet 12:00: et_at [place] [Pepcid] 00 AM _bedt Health Pepcid 40 EST cecilia} Care) MG pantoprazol Pantop 1.0 active Pantopr azole eCW3 e 40 MG razole 2019 {tabl Sodium 40 MG ( [facility] Delayed Sodium 12:00: et} [facility] Release 40 MG 00 AM Health Oral Tablet EST Care) Pantoprazol e Sodium 40 MG Diclofenac Diclof 08/14/ active Diclofen ac eCW3 Sodium 0.01 2018 Sodium 1 % ([facility] MG/MG Sodium 12:00: [facility] Topical Gel 1 % 00 AM Health Diclofenac EST Care) Sodium 1 % Diclofenac Diclof 08/14/ active Diclofen ac eCW3 Sodium 0.01 2018 Sodium 1 % ([facility] MG/MG Sodium 12:00: [facility] Topical Gel 1 % 00 AM Health Diclofenac EST Care) Sodium 1 % Diclofenac Diclof 08/14/ suspend Diclofe nac eCW3 Sodium 0.01 2018 ed Sodium 1 % ([facility] MG/MG Sodium 12:00: [facility] Topical Gel 1 % 00 AM Health Diclofenac EST Care) Sodium 1 % Diclofenac Diclof 08/14/ active Diclofen ac eCW3 Sodium 0.01 2018 Sodium 1 % ([facility] MG/MG Sodium 12:00: [facility] Topical Gel 1 % 00 AM Health Diclofenac EST Care) Sodium 1 % 1 ML Ketoro 1.0 suspend Ketorolac eCW 3 Ketorolac lac 2018 {ml} ed Tromethamine ([facility] Tromethamin Tromet 12:00: 30 MG/ML [facility] e 30 MG/ML hamine 00 AM Health Injection 30 EDT Care) MG/ML 1 ML Ketoro 1.0 suspend Ketorolac eCW 3 Ketorolac lac 2018 {ml} ed Tromethamine ([facility] Tromethamin Tromet 12:00: 30 MG/ML [facility] e 30 MG/ML hamine 00 AM Health Injection 30 EDT Care) MG/ML 1 ML Ketoro 1.0 suspend Ketorolac eCW 3 Ketorolac lac 2018 {ml} ed Tromethamine ([facility] Tromethamin Tromet 12:00: 30 MG/ML [facility] e 30 MG/ML hamine 00 AM Health Injection 30 EDT Care) MG/ML 1 ML Ketoro .0 suspend Ketorolac eCW 3 Ketorolac lac 2018 {ml} ed Tromethamine ([facility] Tromethamin Tromet 12:00: 30 MG/ML [facility] e 30 MG/ML hamine 00 AM Health Injection 30 EDT Care) MG/ML Hydroxyzine HydrOX .0 suspend HydrOX Yzine eCW3 Hydrochlori Yzine 2018 {tabl ed HCl 25 MG ( [facility] 25 MG HCl 25 12:00: et_as [place] Oral Tablet MG 00 AM _need Health HydrOXYzine EDT ed} Care) HCl 25 MG Hydroxyzine HydrOX .0 active HydrOXY zine eCW3 Hydrochlori Yzine 2018 {tabl HCl 25 MG ( [facility] 25 MG HCl 25 12:00: et_as [place] Oral Tablet MG 00 AM _need Health HydrOXYzine EDT ed} Care) HCl 25 MG Ibuprofen Ibupro 06/11/ suspend Ibuprofe n eCW3 400 MG Oral fen 2019 ed 400 MG ([facility] Tablet 400 MG 12:00: [facility] 00 AM Health EDT Care) Ibuprofen Ibupro 06/11/ active Ibuprofen eCW3 400 MG Oral fen 2019 400 MG ([place] [facility] Tablet 400 MG 12:00: [facility] 00 AM Health EDT Care) Ibuprofen Ibupro 06/11/ active Ibuprofen eCW3 400 MG Oral fen 2019 400 MG ([place] [facility] Tablet 400 MG 12:00: [facility] 00 AM Health EDT Care) Hydroxyzine HydrOX .0 active HydrOXY zine eCW3 Hydrochlori Yzine 2018 {tabl HCl 25 MG ( [facility] 25 MG HCl 25 12:00: et_as [facility] Oral Tablet MG 00 AM _need Health HydrOXYzine EDT ed} Care) HCl 25 MG Ibuprofen Ibupro 06/11/ active Ibuprofen eCW3 400 MG Oral fen 2019 400 MG ([place] Tablet 400 MG 12:00: [facility] 00 AM Health EDT Care) Hydroxyzine HydrOX .0 active HydrOXY zine eCW3 Hydrochlori Yzine 2018 {tabl HCl 25 MG ( [facility] 25 MG HCl 25 12:00: et_as [place] Oral Tablet MG 00 AM _need Health HydrOXYzine EDT ed} Care) HCl 25 MG Amoxicillin Amoxic .0 suspend Amoxic illin- eCW3 875 MG / illin- 2019 {tabl ed Pot ([facility] Clavulanate Pot 12:00: et} Clavulanate [facility] 125 MG Oral Clavul 00 AM 875-125 MG Health Tablet anate EST Care) Amoxicillin 875-12 -Pot 5 MG Clavulanate 875-125 MG Amoxicillin Amoxic .0 suspend Amoxic illin- eCW3 875 MG / illin- 2018 {tabl ed Pot ([facility] Clavulanate Pot 12:00: et} Clavulanate [facility] 125 MG Oral Clavul 00 AM 875-125 MG Health Tablet anate EST Care) Amoxicillin 875-12 -Pot 5 MG Clavulanate 875-125 MG Amoxicillin Amoxic .0 suspend Amoxic illin- eCW3 875 MG / illin- 2018 {tabl ed Pot ([facility] Clavulanate Pot 12:00: et} Clavulanate [place] 125 MG Oral Clavul 00 AM 875-125 MG Health Tablet anate EST Care) Amoxicillin 875-12 -Pot 5 MG Clavulanate 875-125 MG Amoxicillin Amoxic .0 suspend Amoxic illin- eCW3 875 MG / illin- 2018 {tabl ed Pot ([facility] Clavulanate Pot 12:00: et} Clavulanate [place] 125 MG Oral Clavul 00 AM 875-125 MG Health Tablet anate EST Care) Amoxicillin 875-12 -Pot 5 MG Clavulanate 875-125 MG Tretinoin Tretin .0 suspend Tretinoi n eCW3 0.25 MG/ML oin 2018 {appl ed 0.025 % ([facility] Topical 0.025 12:00: icati [place] Cream % 00 AM on_to Health Tretinoin EST _affe Care) 0.025 % cted_ area_ in_ e_eve ning_ to_fa ce} Tretinoin Tretin .0 active Tretinoin eCW3 0.25 MG/ML oin 2018 {appl 0.025 % ([facility] Topical 0.025 12:00: icati [place] Cream % 00 AM on_to Health Tretinoin EST _affe Care) 0.025 % cted_ area_ in_th e_eve ning_ to_fa ce} Tretinoin Tretin .0 active Tretinoin eCW3 0.25 MG/ML oin 2018 {appl 0.025 % ([facility] Topical 0.025 12:00: icati [place] Cream % 00 AM on_to Health Tretinoin EST _affe Care) 0.025 % cted_ area_ in_th e_eve ning_ to_fa ce} Tretinoin Tretin .0 active Tretinoin eCW3 0.25 MG/ML oin 2018 {appl 0.025 % ([facility] Topical 0.025 12:00: icati [place] Cream % 00 AM on_to Health Tretinoin EST _affe Care) 0.025 % cted_ area_ in_th e_eve ning_ to_fa ce} Melatonin 5 Melato .0 suspend Melato nakul 5 eCW3 MG nakul 2017 {tabl ed MG ([facility] MG 12:00: et_at [facility] 00 AM _bedt Health EDT ime_a Care) s_nee ded_w ith_f ood} Ibuprofen Ibupro 12/24/ suspend Ibuprofe n eCW3 400 MG Oral fen 2018 ed 400 MG ([place] [facility] Tablet 400 MG 12:00: [facility] 00 AM Health EDT Care) Ibuprofen Ibupro 12/24/ suspend 1 tablet eCW2 400 MG Oral fen 2018 ed with food or ([facility] Tablet 400 MG 12:00: milk as [facility] 00 AM needed Health EDT Care) Ibuprofen Ibupro 12/24/ suspend Ibuprofe n eCW3 400 MG Oral fen 2018 ed 400 MG ([place] Tablet 400 MG 12:00: [facility] 00 AM Health EDT Care) Ibuprofen Ibupro 12/24/ suspend Ibuprofe n eCW3 400 MG Oral fen 2018 ed 400 MG ([place] [facility] Tablet 400 MG 12:00: [facility] 00 AM Health EDT Care) Melatonin 5 Melato .0 active Melaton in 5 eCW3 MG nakul 2017 {tabl MG ([facility] MG 12:00: et_at [facility] 00 AM _bedt Health EDT ime_a Care) s_nee ded_w ith_f ood} Melatonin 5 Melato 1.0 active Melaton in 5 eCW3 MG 2017 {tabl MG ([facility] MG 12:00: et_at [facility] 00 AM _bedt Health EDT ime_a Care) s_nee ded_w ith_f ood} Melatonin 5 Melato 1.0 active Melaton in 5 eCW3 MG 2017 {tabl MG ([facility] MG 12:00: et_at [facility] 00 AM _bedt Health EDT ime_a Care) s_nee ded_w ith_f ood} Melatonin 5 Melato 12/24/ active 1 table t at eCW2 MG Oral 2017 bedtime as ([facility] Tablet MG 12:00: needed with [place] r 00 AM food Health EDT Care) Ibuprofen Ibupro 12/24/ suspend Ibuprofe n eCW3 400 MG Oral fen 2018 ed 400 MG ([place] [facility] Tablet 400 MG 12:00: [facility] 00 AM Health EDT Care) Acetaminoph Acetam .0 active Acetami nophe eCW3 en 300 MG / inophe 2016 {tabl n-Codeine #4 ([facility] Codeine n-Code 12:00: et_as 300-60 MG [facility] chela Phosphate ine #4 00 AM _need Health 60 MG Oral 300-60 EDT ed} Care) Tablet MG Acetaminoph en-Codeine #4 300-60 MG Acetaminoph Acetam .0 active Acetami nophe eCW3 en 300 MG / inophe 2016 {tabl n-Codeine #4 ([facility] Codeine n-Code 12:00: et_as 300-60 MG Ri [facility] Phosphate ine #4 00 AM _need Health 60 MG Oral 300-60 EDT ed} Care) Tablet MG Acetaminoph en-Codeine #4 300-60 MG Acetaminoph Acetam .0 active Acetami nophe eCW3 en 300 MG / inophe 2016 {tabl n-Codeine #4 ([facility] Codeine n-Code 12:00: et_as 300-60 MG Ri che[facility] Phosphate ine #4 00 AM _need Health 60 MG Oral 300-60 EDT ed} Care) Tablet MG Acetaminoph en-Codeine #4 300-60 MG Acetaminoph Acetam 1.0 active Acetami nophe eCW3 en 300 MG / inophe 2017 {tabl n-Codeine #4 ([facility] Codeine n-Code 12:00: et_as 300-60 MG Ri chela Phosphate ine #4 00 AM _need Health 60 MG Oral 300-60 EDT ed} Care) Tablet MG Acetaminoph en-Codeine #4 300-60 MG Acetaminoph Acetam 01/10/ 1 table t as eCW2 en 300 MG / inophe 2017 needed ([facility] Codeine n-Code 12:00: [facility] Phosphate ine #4 00 AM Health 60 MG Oral 300-60 EDT Care) Tablet MG Acetaminoph en-Codeine #4 300-60 MG Fluocinolon Jerardo .0 active DermOti c eCW3 e Acetonide ic 2016 {appl 0.01 % ([place] 0.1 MG/ML 0.01 % 12:00: icati [place] Otic 00 AM ons_i Health Solution EST nto_a Care) [Dermotic] ffect DermOtic ed_ea 0.01 % r} Fluocinolon Jerardo .0 active DermOti c eCW3 e Acetonide ic 2016 {appl 0.01 % ([facility] 0.1 MG/ML 0.01 % 12:00: icati [place] Otic 00 AM ons_i Health Solution EST nto_a Care) [Dermotic] ffect DermOtic ed_ea 0.01 % r} Fluocinolon Jerardo .0 active DermOti c eCW3 e Acetonide ic 2016 {appl 0.01 % ([place] [place] 0.1 MG/ML 0.01 % 12:00: icati [place] Otic 00 AM ons_i Health Solution EST nto_a Care) [Dermotic] ffect DermOtic ed_ea 0.01 % r} Fluocinolon Jerardo .0 active DermOti c eCW3 e Acetonide ic 2016 {appl 0.01 % ([place] 0.1 MG/ML 0.01 % 12:00: icati [place] Otic 00 AM ons_i Health Solution EST nto_a Care) [Dermotic] ffect DermOtic ed_ea 0.01 % r} Fluocinolon Jerardo 10/18/ active 5 eC W2 e Acetonide ic 2017 applications ([facility] 0.1 MG/ML 0.01 % 12:00: into [facility] Otic 00 AM affected ear Health Solution EST Care) [Dermotic] DermOtic 0.01 % Albuterol Ipratr 09/20/ 3.0 suspend Ipratrop ium- eCW3 0.833 MG/ML opium- 2015 {ml_a ed Albuterol ([facility] / [place] 12:00: s_nee 0.5-2.5 (3) [facility] Ipratropium rol 00 AM ded} MG/3ML Healt h [place] 0.5-2. EST Care) 0.167 MG/ML 5 (3) Inhalant MG/3ML Solution Ipratropium -Albuterol 0.5-2.5 (3) MG/3ML Albuterol Ipratr 3.0 suspend Ipratrop ium- eCW3 0.833 MG/ML opium- 2015 {ml_a ed Albuterol ([facility] / [place] 12:00: s_nee 0.5-2.5 (3) [facility] Ipratropium rol 00 AM ded} MG/3ML Healt h [place] 0.5-2. EST Care) 0.167 MG/ML 5 (3) Inhalant MG/3ML Solution Ipratropium -Albuterol 0.5-2.5 (3) MG/3ML Prednisone Predni 09/20/ 1.0 active PredniSO NE eCW3 20 MG Oral SONE 2015 {tabl 20 MG ([facility] Tablet 20 MG 12:00: et} [facility] PredniSONE 00 AM Health 20 MG EST Care) Albuterol Ipratr 09/20/ suspend 3 ml as eCW2 0.833 MG/ML opium- 2015 ed needed ([facility] / [place] 12:00: [facility] Ipratropium rol 00 AM Health [place] 0.5-2. EST Care) 0.167 MG/ML 5 (3) Inhalant MG/3ML Solution Ipratropium -Albuterol 0.5-2.5 (3) MG/3ML Albuterol Ipratr 3.0 suspend Ipratrop ium- eCW3 0.833 MG/ML opium- 2016 {ml_a ed Albuterol ([facility] / [place] 12:00: s_nee 0.5-2.5 (3) [facility] Ipratropium rol 00 AM ded} MG/3ML Healt h [place] 0.5-2. EST Care) 0.167 MG/ML 5 (3) Inhalant MG/3ML Solution Ipratropium -Albuterol 0.5-2.5 (3) MG/3ML Prednisone Predni 09/20/ active 1 tablet eCW2 20 MG Oral SONE 2016 ([facility] Tablet 20 MG 12:00: [facility] PredniSONE 00 AM Health 20 MG EST Care) Prednisone Predni 1.0 active PredniSO NE eCW3 20 MG Oral SONE 2016 {tabl 20 MG ([facility] Tablet 20 MG 12:00: et} [facility] PredniSONE 00 AM Health 20 MG EST Care) Prednisone Predni 1.0 active PredniSO NE eCW3 20 MG Oral SONE 2016 {tabl 20 MG ([facility] Tablet 20 MG 12:00: et} [facility] PredniSONE 00 AM Health 20 MG EST Care) Prednisone Predni 1.0 active PredniSO NE eCW3 20 MG Oral SONE 2016 {tabl 20 MG ([facility] Tablet 20 MG 12:00: et} [facility] PredniSONE 00 AM Health 20 MG EST Care) Albuterol Ipratr 3.0 suspend Ipratrop ium- eCW3 0.833 MG/ML opium- 2016 {ml_a ed Albuterol ([facility] / [place] 12:00: s_nee 0.5-2.5 (3) [facility] Ipratropium rol 00 AM ded} MG/3ML Healt h [place] 0.5-2. EST Care) 0.167 MG/ML 5 (3) Inhalant MG/3ML Solution Ipratropium -Albuterol 0.5-2.5 (3) MG/3ML Furosemide Lasix 05/13/ active 1 tablet eCW2 40 MG Oral 40 mg 2015 ([facility] Tablet 12:00: [facility] [Lasix] 00 AM Health Lasix 40 mg EDT Care) tramadol Ultram 1.0 active Ultram 50 mg eCW3 hydrochlori 50 mg 2016 {tabl ([place] [facility] de 50 MG 12:00: et_as [facility] Oral Tablet 00 AM _need Health [Ultram] EDT ed} Care) Ultram 50 mg tramadol Ultram 1.0 active Ultram 50 mg eCW3 hydrochlori 50 mg 2016 {tabl ([place] [facility] de 50 MG 12:00: et_as [facility] Oral Tablet 00 AM _need Health [Ultram] EDT ed} Care) Ultram 50 mg tramadol Ultram 1.0 active Ultram 50 mg eCW3 hydrochlori 50 mg 2016 {tabl ([place] de 50 MG 12:00: et_as [place] Oral Tablet 00 AM _need Health [Ultram] EDT ed} Care) Ultram 50 mg tramadol Ultram 04/01/ active 1 tablet a s eCW2 hydrochlori 50 mg 2016 needed ([facility] de 50 MG 12:00: [facility] Oral Tablet 00 AM Health [Ultram] EDT Care) Ultram 50 mg tramadol Ultram .0 active Ultram 50 mg eCW3 hydrochlori 50 mg 2016 {tabl ([place] de 50 MG 12:00: et_as [place] Oral Tablet 00 AM _need Health [Ultram] EDT ed} Care) Ultram 50 mg Doxepin 3 Doxepi 1.0 suspend Doxepin HCl eCW3 MG Oral n HCl 2015 {tabl ed 3 mg ([facility] Tablet 3 mg 12:00: et_at [place] Doxepin HCl 00 AM _bedt Health 3 mg EST cecilia} Care) Doxepin 3 Doxepi 1.0 suspend Doxepin HCl eCW3 MG Oral n HCl 2015 {tabl ed 3 mg ([facility] Tablet 3 mg 12:00: et_at [place] Doxepin HCl 00 AM _bedt Health 3 mg EST cecilia} Care) Doxepin 3 Doxepi 1.0 suspend Doxepin HCl eCW3 MG Oral n HCl 2015 {tabl ed 3 mg ([facility] Tablet 3 mg 12:00: et_at [place] Doxepin HCl 00 AM _bedt Health 3 mg EST cecilia} Care) Doxepin HCl UNK 08/13/ suspend 1 tablet at eCW2 3 mg 2014 ed bedtime ([facility] 12:00: [facility] 00 AM Health EST Care) Doxepin 3 Doxepi 08/13/ 1.0 suspend Doxepin HCl eCW3 MG Oral n HCl 2014 {tabl ed 3 mg ([facility] Tablet 3 mg 12:00: et_at [place] Doxepin HCl 00 AM _bedt Health 3 mg EST cecilia} Care) valsartan Valsar 1.0 active Valsartan e CW3 320 MG Oral evans {tabl 320 MG ([facility] Tablet 320 MG et} [facility] Valsartan Health 320 MG Care) Meclizine Mecliz 1.0 suspend Meclizine eCW3 Hydrochlori ine {tabl ed HCl 25 MG (H udson de 25 MG HCl 25 et_as [place] Oral Tablet MG _need Health Meclizine ed} Care) HCl 25 MG Vitamin C Vitami 1.0 suspend Vitamin C eCW3 100 MG n C {tabl ed 100 MG ([place] 100 MG et} [facility]) Penicillin Penici active 1 tablet e CW2 V Potassium llin V ([place] n 500 MG Oral Potass [place] Tablet [facility] Health 500 MG Care) valsartan Valsar 1.0 active Valsartan e CW3 320 MG Oral evans {tabl 320 MG ([place] Tablet 320 MG et} [place] Valsartan Health 320 MG Care) Tamsulosin Tamsul 1.0 active Tamsulosin eCW3 hydrochlori osin {caps HCl 0.4 MG ( [place] de 0.4 MG HCl ule} [place] Oral 0.4 MG Health Capsule Care) Tamsulosin HCl 0.4 MG 200 ACTUAT Ventol 2.0 active Ventolin H FA eCW3 Albuterol in HFA {puff 108 (90 (Hud son 0.09 108 s_as_ Base) [place] MG/ACTUAT (90 neede MCG/ACT Health Metered [facility]) d} Care) Dose MCG/AC Inhaler T [Ventolin] Ventolin HFA 108 (90 Base) MCG/ACT valsartan Valsar 1.0 active Valsartan e CW3 320 MG Oral evans {tabl 320 MG ([place] Tablet 320 MG et} [place] Valsartan [facility] 320 MG [facility]) Vitamin C UNK suspend 1 tablet eCW 2 100 MG ed ([place] [facility] Metoprolol Metopr 1.0 active Metoprolol eCW3 Tartrate 25 olol {tabl Tartrate 25 ([facility] MG Oral Tartra et} MG [facility] Tablet te 25 [facility]) Tamsulosin Tamsul active 1 capsule eCW2 hydrochlori osin ([place] de 0.4 MG HCl [place] Oral 0.4 MG [facility] Capsule [facility]) Tamsulosin HCl 0.4 MG 120 ACTUAT Symbic active 2 puffs eC W2 Budesonide ort ([place]ro 0.16 160-4. [place] MG/ACTUAT / 5 [facility] formoterol MCG/AC Care) fumarate T 0.0045 MG/ACTUAT Metered Dose Inhaler [Symbicort] Symbicort 160-4.5 MCG/ACT ferrous Ferrou 1.0 active Ferrous eCW3 sulfate 325 s {tabl Sulfate 325 ([place]ro MG Delayed Sulfat et} (65 Fe) MG R iver Release e 325 Health Oral Tablet (65 Care) Ferrous Fe) MG Sulfate 325 (65 Fe) MG Vitamin C Vitami 1.0 suspend Vitamin C eCW3 100 MG n C {tabl ed 100 MG ([place]ro [address]} [facility]) Penicillin Penici 1.0 active Penicillin V eCW3 V Potassium llin V {tabl Potassium ([place] 500 MG Oral Potass et} 500 MG Rive r Tablet [facility] 500 MG Care) Blood Blood active Blood eCW3 Pressure Pressu Pressure ([place] Monitor - re Monitor - [facility]) Jevity 1.5 Jevity active Jevity 1.5 eCW3 Matthew - 1.5 Matthew - ([place] Matthew - [facility]) 120 ACTUAT Symbic 2.0 active Symbicort eCW3 Budesonide ort {puff 160-4.5 ([place] 0.16 160-4. s} MCG/ACT [place] MG/ACTUAT / 5 Health formoterol MCG/AC Care) fumarate T 0.0045 MG/ACTUAT Metered Dose Inhaler [Symbicort] Symbicort 160-4.5 MCG/ACT 120 ACTUAT Symbic 2.0 active Symbicort eCW3 Budesonide ort {puff 160-4.5 ([place] 0.16 160-4. s} MCG/ACT [place] MG/ACTUAT / 5 Health formoterol MCG/AC Care) fumarate T 0.0045 MG/ACTUAT Metered Dose Inhaler [Symbicort] Symbicort 160-4.5 MCG/ACT Oxybutynin UNK active Oxybutynin e CW3 Chloride 10 Chloride 10 ( [place] MG MG [facility] Care) Penicillin Penici 1.0 active Penicillin V eCW3 V Potassium llin V {tabl Potassium ([place] 500 MG Oral Potass et} 500 MG Rive r Tablet [facility] 500 MG Care) Blood Blood active Blood eCW3 Pressure Pressu Pressure ([place] Monitor - re Monitor - [facility]) Blood Blood active Blood eCW3 Pressure Pressu Pressure ([place] Monitor - re Monitor - [facility]) Penicillin Penici 1.0 active Penicillin V eCW3 V Potassium llin V {tabl Potassium ([place] 500 MG Oral Potass et} 500 MG Rive r Tablet [facility] 500 MG Care) Furosemide Lasix 1.0 active Lasix 40 mg eCW3 40 MG Oral 40 mg {tabl ([place] Tablet et} [facility] [Lasix] Health Lasix 40 mg Care) Oxybutynin UNK active Oxybutynin e CW3 Chloride 10 Chloride 10 ( [place] MG MG [facility] Care) Jevity 1.5 Jevity active Jevity 1.5 eCW3 Matthew - 1.5 Matthew - ([place] Matthew - [facility] Care) Metoprolol Metopr active 1 tablet e CW2 Tartrate 25 olol ([place] MG Oral Tartra [facility] Tablet te 25 Health MG Care) Meclizine Mecliz 1.0 active Meclizine e CW3 Hydrochlori ine {tabl HCl 25 MG (H udson de 25 MG HCl 25 et_as [place] Oral Tablet MG _need Health Meclizine ed} Care) HCl 25 MG Furosemide Lasix 1.0 active Lasix 40 mg eCW3 40 MG Oral 40 mg {tabl ([place] Tablet et} [facility] [Lasix] Health Lasix 40 mg Care) Cyanocobala UNK 1.0 suspend Cyanocobal am eCW3 min 1000 {ml} ed in 1000 ([place] MCG/ML MCG/ML [place] [facility]) Blood Blood active Blood eCW3 Pressure Pressu Pressure ([place] Monitor - re Monitor - [facility] - Care) Docusate Colace 1.0 suspend Colace 100 eCW3 Sodium 100 100 mg {caps ed mg ([place] MG Oral ule_a [place] Capsule s_nee Health [Colace] ded} Care) Colace 100 mg Docusate Colace 1.0 suspend Colace 100 eCW3 Sodium 100 100 mg {caps ed mg ([place] MG Oral ule_a [place] Capsule s_nee Health [Colace] ded} Care) Colace 100 mg ferrous Ferrou 1.0 active Ferrous eCW3 sulfate 325 s {tabl Sulfate 325 ([place] MG Delayed Sulfat et} (65 Fe) MG R iver Release e 325 Health Oral Tablet (65 Care) Ferrous Fe) MG Sulfate 325 (65 Fe) MG Meclizine Mecliz 1.0 active Meclizine e CW3 Hydrochlori ine {tabl HCl 25 MG (H udson de 25 MG HCl 25 et_as [place] Oral Tablet MG _need Health Meclizine ed} Care) HCl 25 MG valsartan Valsar active 1 tablet eC W2 80 MG Oral evans 80 ([place] Tablet MG [facility] Valsartan Health 80 MG Care) Oxybutynin UNK active Oxybutynin e CW3 Chloride 10 Chloride 10 ( [place] MG MG [place] [facility]) 120 ACTUAT Symbic 2.0 active Symbicort eCW3 Budesonide ort {puff 160-4.5 ([place] 0.16 160-4. s} MCG/ACT [place] MG/ACTUAT / 5 Health formoterol MCG/AC Care) fumarate T 0.0045 MG/ACTUAT Metered Dose Inhaler [Symbicort] Symbicort 160-4.5 MCG/ACT Spironolact Spiron 1.0 suspend Spironol acto eCW3 one 50 MG olacto {tabl ed ne 50 MG (Hu d[place] Oral Tablet ne 50 et_wi [place] MG th_fo Health od} Care) Docusate Colace suspend 1 capsule a s eCW2 Sodium 100 100 mg ed needed ([place] MG Oral [place] Capsule Health [Colace] Care) Colace 100 mg Penicillin Penici 1.0 active Penicillin V eCW3 V Potassium llin V {tabl Potassium ([place] 500 MG Oral Potass et} 500 MG Rive r Tablet [facility] Health 500 MG Care) Tamsulosin Tamsul 1.0 active Tamsulosin eCW3 hydrochlori osin {caps HCl 0.4 MG ( [place] de 0.4 MG HCl ule} [place] Oral 0.4 MG Health Capsule Care) Tamsulosin HCl 0.4 MG Nadolol 40 Nadolo 1.0 active Nadolol 40 eCW3 MG Oral l 40 {tabl MG ([place] Tablet MG et} [facility]) Cyanocobala UNK 1.0 suspend Cyanocobal am eCW3 min 1000 {ml} ed in 1000 ([place] MCG/ML MCG/ML [facility]) Furosemide Lasix 1.0 active Lasix 40 mg eCW3 40 MG Oral 40 mg {tabl ([place] Tablet et} [place] [Lasix] [facility] Lasix 40 mg [facility]) 200 ACTUAT Ventol 2.0 active Ventolin H FA eCW3 Albuterol in HFA {puff 108 (90 (Hud son 0.09 108 s_as_ Base) [place] MG/ACTUAT (90 neede MCG/ACT Health Metered Base) d} Care) Dose MCG/AC Inhaler T [Ventolin] Ventolin HFA 108 (90 Base) MCG/ACT 120 ACTUAT Symbic 2.0 active Symbicort eCW3 Budesonide ort {puff 160-4.5 ([place] 0.16 160-4. s} MCG/ACT [place] MG/ACTUAT / 5 Health formoterol MCG/AC Care) fumarate T 0.0045 MG/ACTUAT Metered Dose Inhaler [Symbicort] Symbicort 160-4.5 MCG/ACT Cyanocobala UNK 1.0 suspend Cyanocobal am eCW3 min 1000 {ml} ed in 1000 ([place] MCG/ML MCG/ML [facility]) Vitamin C Vitami 1.0 suspend Vitamin C eCW3 100 MG n C {tabl ed 100 MG ([place]ro 100 MG et} [facility]) Metoprolol Metopr 1.0 active Metoprolol eCW3 Tartrate 25 olol {tabl Tartrate 25 ([place] MG Oral Tartra et} MG [facility] Tablet te 25 Health MG Care) Furosemide Lasix 1.0 active Lasix 40 mg eCW3 40 MG Oral 40 mg {tabl ([place] Tablet et} [facility] [Lasix] Health Lasix 40 mg Care) Meclizine Mecliz 1.0 active Meclizine e CW3 Hydrochlori ine {tabl HCl 25 MG (H ud[place] de 25 MG HCl 25 et_as [place] Oral Tablet MG _need Health Meclizine ed} Care) HCl 25 MG prednisolon predni 10 mL complet Sa int e 3 MG/ML soLONE ed Carlos Oral 15 Medical Solution mg/5 Center prednisoLON mL E 15 mg/5 Soluti mL on, Solution, Ordere Ordered By: d By: Jakub Sy PADirection PADire s: 10 mL ctions oral daily : 10 mL oral daily Docusate Colace 1.0 suspend Colace 100 eCW3 Sodium 100 100 mg {caps ed mg ([place] MG Oral ule_a [place] Capsule s_nee Health [Colace] ded} Care) Colace 100 mg Tamsulosin Tamsul 1.0 active Tamsulosin eCW3 hydrochlori osin {caps HCl 0.4 MG ( [place] de 0.4 MG HCl ule} [place] Oral 0.4 MG Health Capsule Care) Tamsulosin HCl 0.4 MG Metoprolol Metopr 1.0 active Metoprolol eCW3 Tartrate 25 olol {tabl Tartrate 25 ([place] MG Oral Tartra et} MG [facility] Tablet te 25 Health Care) 200 ACTUAT Ventol active 2 puffs as eCW2 Albuterol in HFA needed ([place] n 0.09 108 [place] MG/ACTUAT (90 Health Metered Base) Care) Dose MCG/AC Inhaler T [Ventolin] Ventolin HFA 108 (90 Base) MCG/ACT Tamsulosin Tamsul 1.0 active Tamsulosin eCW3 hydrochlori osin {caps HCl 0.4 MG ( [place] de 0.4 MG HCl ule} [place] Oral 0.4 MG Health Capsule Care) Tamsulosin HCl 0.4 MG Cyanocobala UNK 1.0 suspend Cyanocobal am eCW3 min 1000 {ml} ed in 1000 ([place] MCG/ML MCG/ML [facility]) Oxybutynin UNK active Oxybutynin e CW3 Chloride 10 Chloride 10 ( [place] MG MG [facility]) Docusate Colace 1.0 suspend Colace 100 eCW3 Sodium 100 100 mg {caps ed mg ([place] MG Oral ule_a [place] Capsule s_nee Health [Colace] ded} Care) Colace 100 mg Nadolol 40 Nadolo 1.0 active Nadolol 40 eCW3 MG Oral l 40 {tabl MG ([place] Tablet MG et} [facility]) Nadolol 40 Nadolo 1.0 suspend Nadolol 4 0 eCW3 MG Oral l 40 {tabl ed MG ([place] Tablet MG et} [facility]) Vitamin C Vitami 1.0 suspend Vitamin C eCW3 100 MG n C {tabl ed 100 MG ([place]ro 100 MG et} [facility]) Spironolact Spiron 1.0 active Spironola director human services eCW3 one 50 MG olacto {tabl ne 50 MG (Hu dson Oral Tablet ne 50 et_wi [place] MG th_fo Health od} Care) ferrous Ferrou 1.0 suspend Ferrous eCW3 sulfate 325 s {tabl ed Sulfate 325 ([place] MG Delayed Sulfat et} (65 Fe) MG R iver Release e 325 Health Oral Tablet (65 Care) Ferrous Fe) MG Sulfate 325 (65 Fe) MG ferrous Ferrou 1.0 active Ferrous eCW3 sulfate 325 s {tabl Sulfate 325 ([place] MG Delayed Sulfat et} (65 Fe) MG R iver Release e 325 Health Oral Tablet (65 Care) Ferrous Fe) MG Sulfate 325 (65 Fe) MG Spironolact Spiron 1.0 active Spironola director human services eCW3 one 50 MG olacto {tabl ne 50 MG (Hu dson Oral Tablet ne 50 et_wi [place] MG th_fo Health od} Care) 200 ACTUAT Ventol 2.0 active Ventolin H FA eCW3 Albuterol in HFA {puff 108 (90 (Hud son 0.09 108 s_as_ Base) [place] MG/ACTUAT (90 neede MCG/ACT Health Metered Base) d} Care) Dose MCG/AC Inhaler T [Ventolin] Ventolin HFA 108 (90 Base) MCG/ACT 200 ACTUAT Ventol 2.0 active Ventolin H FA eCW3 Albuterol in HFA {puff 108 (90 (Hud son 0.09 108 s_as_ Base) [place] MG/ACTUAT (90 neede MCG/ACT Health Metered Base) d} Care) Dose MCG/AC Inhaler T [Ventolin] Ventolin HFA 108 (90 Base) MCG/ACT Metoprolol Metopr 1.0 active Metoprolol eCW3 Tartrate 25 olol {tabl Tartrate 25 ([place] MG Oral Tartra et} MG [facility] Tablet te 25 Health MG Care) ferrous Ferrou active 1 tablet eCW2 sulfate 325 s ([place]ro MG Delayed Sulfat [place] Release e 325 Health Oral Tablet (65 Care) Ferrous Fe) MG Sulfate 325 (65 Fe) MG Jevity 1.5 Jevity active Jevity 1.5 eCW3 Matthew - 1.5 Matthew - ([place] Matthew - [facility]) valsartan Valsar 1.0 active Valsartan e CW3 320 MG Oral evans {tabl 320 MG ([place] Tablet 320 MG et} [facility] Valsartan Health 320 MG Care) Insurance Providers Payer name Policy type Policy ID Covered Covered constitution party's Policy P quentin / Coverage constitution party ID relationship to Acevedo Inf ormation type [place]vedo [place] [id number] SP [id number] COMPLETE MEDICAID [id number] SP [id number] [place] O [id number] 01 [id number] HEALTHCARE MCARE OPD W [id number] [place] MEDIC[place] [id number] SP [id number] 01 [id number] [facility] NYCARE HEALTHCARE MCARE OPD O [id number] [facility] [id number] SP [id number] MEDICARE ADV [place] [id number] SP [id number] COMPLETE Problems, Conditions, and Diagnoses Code Display Name Description Problem Type Effective Data Dates Source(s) K74.60 Cirrhosis of liver Unspecified Problem 05/14/2020 eCW3 ([place] cirrhosis of liver 12:00:00 AM [facility] R32 Incontinence Incontinence Problem 12/18/2019 eCW3 ([place] 12:00:00 AM [facility]) Z93.1 Gastrostomy present Feeding by G-tube Problem 0 eCW3 ([place] 12:00:00 AM [facility] EST Care) Z93.1 Gastrostomy present Feeding by G-tube Problem 0 eCW3 ([place] 12:00:00 AM [facility] EST Care) C15.9 Esophageal cancer Esophageal cancer Problem 11/18/2019 eCW3 ([place] 12:00:00 AM [facility] EST Care) C15.9 Esophageal cancer Esophageal cancer Problem 11/18/2019 eCW3 ([place] 12:00:00 AM [facility] EST Care) C15.9 Esophageal cancer Esophageal cancer Problem 11/18/2019 eCW3 ([place] 12:00:00 AM [facility] EST Care) R13.10 Dysphagia Dysphagia Problem 10/15/2019 eCW3 ([place] 12:00:00 AM [facility] EST Care) R13.10 Dysphagia Dysphagia Problem 10/15/2019 eCW3 ([place] 12:00:00 AM [facility] EST Care) D69.6 Thrombocytopenia Thrombocytopenia Problem 07/15/2019 eC W3 ([place] 12:00:00 AM [facility] EDT Care) E55.9 Vitamin D deficiency Vitamin D deficiency Problem 07/15 eCW3 ([place] 12:00:00 AM [facility] EDT Care) D69.6 Thrombocytopenia Thrombocytopenia Problem 07/15/2019 eC W3 ([place] 12:00:00 AM [facility] EDT Care) L71.9 Rosacea Rosacea Problem 08/27/2018 eCW3 ([place] 12:00:00 AM [facility] EST Care) L71.9 Rosacea Rosacea Problem 08/27/2018 eCW3 ([place] 12:00:00 AM [facility] EST Care) L71.9 Rosacea Rosacea Problem 08/27/2018 eCW2 ([place] 12:00:00 AM [facility] EST Care) R26.81 Unsteady gait Unsteady gait Problem 07/05/2018 eCW3 (Hu dson 12:00:00 AM [facility] EDT Care) R26.81 Unsteady gait Unsteady gait Problem 07/05/2018 eCW3 (Hu dson 12:00:00 AM [facility] EDT Care) R26.81 Unsteady gait Unsteady gait Problem 07/05/2018 eCW3 (Hu dson 12:00:00 AM [facility] EDT Care) R26.81 Unsteady gait Unsteady gait Problem 07/05/2018 eCW2 (Hu dson 12:00:00 AM [facility] EDT Care) H54.7 Poor vision Poor vision Problem 06/04/2018 eCW3 ([place] 12:00:00 AM [facility] EDT Care) H54.7 Poor vision Poor vision Problem 06/04/2018 eCW3 ([place] 12:00:00 AM [facility] EDT Care) H54.7 Poor vision Poor vision Problem 06/04/2018 eCW3 ([place] 12:00:00 AM [facility] EDT Care) H54.7 Poor vision Poor vision Problem 06/04/2018 eCW2 ([place] 12:00:00 AM [facility] EDT Care) E66.9 Obesity Obesity Problem 03/28/2018 eCW3 ([place] 12:00:00 AM [facility] EDT Care) E66.9 Obesity Obesity Problem 03/28/2018 eCW3 ([place] 12:00:00 AM [facility] EDT Care) E66.9 Obesity Obesity Problem 03/28/2018 eCW2 ([place] 12:00:00 AM [facility] EDT Care) D50.9 Iron deficiency Iron deficiency Problem 12/24/2017 eCW3 ([place] anemia, unspecified anemia, unspecified 12:00:0 0 AM [facility] iron deficiency iron deficiency EDT Care ) anemia type anemia type 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 Alcoholic cirrhosis Problem 018 eCW3 ([place] of liver without of liver without 12:00:00 AM [facility] EDT Care) 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 Alcoholic cirrhosis Problem 018 eCW3 ([place] of liver without of liver without 12:00:00 AM [facility] EDT Care) D50.9 Iron deficiency Iron deficiency Problem 12/24/2017 eCW3 ([place] anemia, unspecified anemia, unspecified 12:00:0 0 AM [facility] iron deficiency iron deficiency EDT Care ) anemia type anemia type 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 Alcoholic cirrhosis Problem 018 eCW3 ([place] of liver without of liver without 12:00:00 AM [facility] ascites ascites EDT Care) D50.9 Iron deficiency Iron deficiency Problem 12/24/2017 eCW3 ([place] anemia, unspecified anemia, unspecified 12:00:0 0 AM [facility] iron deficiency iron deficiency EDT Care ) anemia type anemia type 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 Alcoholic cirrhosis Problem 018 eCW2 ([place] of liver without of liver without 12:00:00 AM [facility] ascites ascites EDT Care) D50.9 Iron deficiency Iron deficiency Problem 12/24/2017 eCW2 ([place] anemia, unspecified anemia, unspecified 12:00:0 0 AM [facility] iron deficiency iron deficiency EDT Care ) anemia type anemia type D50.9 Microcytic anemia Microcytic anemia Problem 11/02/2017 eCW3 ([place] 12:00:00 AM [facility] EST Care) F51.01 Primary insomnia Primary insomnia Problem 11/02/2017 eC W3 ([place] 12:00:00 AM [facility] EST Care) D50.9 Microcytic anemia Microcytic anemia Problem 11/02/2017 eCW3 ([place] 12:00:00 AM [facility] EST Care) F51.01 Primary insomnia Primary insomnia Problem 11/02/2017 eC W3 ([place] 12:00:00 AM [facility] EST Care) D50.9 Microcytic anemia Microcytic anemia Problem 11/02/2017 eCW3 ([place] 12:00:00 AM [facility] EST Care) F51.01 Primary insomnia Primary insomnia Problem 11/02/2017 eC W3 ([place] 12:00:00 AM [facility] EST Care) D50.9 Microcytic anemia Microcytic anemia Problem 11/02/2017 eCW2 ([place] 12:00:00 AM [facility] EST Care) F51.01 Primary insomnia Primary insomnia Problem 11/02/2017 eC W2 ([place] 12:00:00 AM [facility] EST Care) E83.51 Hypocalcemia Hypocalcemia Problem 06/14/2017 eCW3 ([place] 12:00:00 AM [facility] EDT Care) E83.51 Hypocalcemia Hypocalcemia Problem 06/14/2017 eCW3 ([place] 12:00:00 AM [facility] EDT Care) E83.51 Hypocalcemia Hypocalcemia Problem 06/14/2017 eCW3 ([place] 12:00:00 AM [facility] EDT Care) E83.51 Hypocalcemia Hypocalcemia Problem 06/14/2017 eCW2 ([place] 12:00:00 AM [facility] EDT Care) H54.7 Unspecified visual Diminished eyesight Problem 05/23/20 17 eCW3 ([place] loss 12:00:00 AM [facility] EDT Care) H54.7 Unspecified visual Diminished eyesight Problem 05/23/20 17 eCW3 ([place] loss 12:00:00 AM [facility] EDT Care) H54.7 Unspecified visual Diminished eyesight Problem 05/23/20 17 eCW2 ([place] loss 12:00:00 AM [facility] EDT Care) J44.9 COPD - Chronic COPD (chronic Problem 03/06/2017 eCW3 (H udson obstructive obstructive 12:00:00 AM [facility] pulmonary disease pulmonary disease) EDT Care) J44.9 COPD - Chronic COPD (chronic Problem 03/06/2017 eCW3 (H ud[place] obstructive obstructive 12:00:00 AM [facility] pulmonary disease pulmonary disease) EDT Care) J44.9 COPD - Chronic COPD (chronic Problem 03/06/2017 eCW3 ([place] obstructive obstructive 12:00:00 AM [facility] pulmonary disease pulmonary disease) EDT Care) J44.9 COPD - Chronic COPD (chronic Problem 03/06/2017 eCW2 ([place] obstructive obstructive 12:00:00 AM [facility] pulmonary disease pulmonary disease) EDT Care) J42 Chronic bronchitis Chronic bronchitis Problem 7 eCW3 ([place] 12:00:00 AM [facility] EST Care) J42 Chronic bronchitis Chronic bronchitis Problem 7 eCW3 (Casrto 12:00:00 AM [facility] EST Care) J42 Chronic bronchitis Chronic bronchitis Problem 7 eCW2 ([place] 12:00:00 AM [facility] EST Care) N39.43 Dribbling of urine Urinary dribbling Problem 09/20/2016 eCW3 ([place] 12:00:00 AM [facility] EST Care) N39.43 Dribbling of urine Urinary dribbling Problem 09/20/2016 eCW3 ([place] 12:00:00 AM [facility] EST Care) N39.43 Dribbling of urine Urinary dribbling Problem 09/20/2016 eCW3 ([place] 12:00:00 AM [facility] EST Care) N39.43 Dribbling of urine Urinary dribbling Problem 09/20/2016 eCW2 ([place] 12:00:00 AM [facility] Care) R60.0 Edema Edema extremities Problem 06/21/2016 eCW3 (H udson 12:00:00 AM [facility] EDT Care) I10 Hypertension Hypertension Problem 06/21/2016 eCW3 ([place] 12:00:00 AM [facility] EDT Care) I10 Hypertension Hypertension Problem 06/21/2016 eCW3 ([place] 12:00:00 AM [facility] EDT Care) R60.0 Edema Edema extremities Problem 06/21/2016 eCW3 (H udson 12:00:00 AM [facility] EDT Care) R60.0 Edema Edema extremities Problem 06/21/2016 eCW3 (H udson 12:00:00 AM [facility] EDT Care) I10 Hypertension Hypertension Problem 06/21/2016 eCW3 ([place] 12:00:00 AM [facility] EDT Care) R60.0 Edema Edema extremities Problem 06/21/2016 eCW2 (H udson 12:00:00 AM [facility] EDT Care) I10 Hypertension Hypertension Problem 06/21/2016 eCW2 ([place] 12:00:00 AM [facility] EDT Care) 794.39 Abnormal nuclear Abnormal nuclear Problem 02/03/2015 eC W3 ([place] stress test stress test 12:00:00 AM [facility] 794.39 Abnormal nuclear Abnormal nuclear Problem 02/03/2015 eC W3 ([place] stress test stress test 12:00:00 AM [facility]) 794.39 Abnormal nuclear Abnormal nuclear Problem 02/03/2015 eC W3 ([place] stress test stress test 12:00:00 AM [facility]) 794.39 Abnormal nuclear Abnormal nuclear Problem 02/03/2015 eC W2 ([place] stress test stress test 12:00:00 AM [facility]) 305.02 Nondependent alcohol Alcohol abuse, Problem eCW3 ([place]ro abuse, episodic episodic [facility] Care) 790.6 Elevated liver Elevated LFTs Problem eCW3 ([facility] [place] enzymes level [facility]) 790.6 Elevated liver Elevated LFTs Problem eCW3 ([facility] enzymes level [facility]) 305.02 Nondependent alcohol Alcohol abuse, Problem eCW3 ([place] abuse, episodic episodic [facility] Care) 790.6 Elevated liver Elevated LFTs Problem eCW3 (H udson enzymes level [facility]) 305.02 Nondependent alcohol Alcohol abuse, Problem eCW3 ([place] abuse, episodic episodic [facility] Care) 305.02 Nondependent alcohol Alcohol abuse, Problem eCW2 ([place] abuse, episodic episodic [facility] Care) 611.1 Gynecomastia Gynecomastia Problem eCW2 ([facility]) 790.6 Elevated liver Elevated LFTs Problem eCW2 (H udson enzymes level [facility]) 477.9 Allergic rhinitis ALLERGIC RHINITIS Problem eCW2 ([place] [facility]) 790.21 Impaired fasting Impaired fasting Problem eC W2 ([place] glucose glucose [facility]) 278.00 Obesity OBESITY NOS Problem eCW2 ([facility]) 530.11 Gastroesophageal GERD Problem eCW2 (Hu dson reflux disease [facility]) 272.4 Hyperlipidemia Hyperlipidemia Problem eCW2 ( [facility]) 401.9 Hypertension Hypertension Problem eCW2 ([facility]) I10 Essential (primary) ESSENTIAL (PRIMARY) Diagnosis 020 hypertension HYPERTENSION 11:30:00 AM [facility] E11.9 Type 2 diabetes TYPE 2 DIABETES Diagnosis 04/13/2020 Velia t mellitus without MELLITUS WITHOUT 11:30:00 AM [facility] complications COMPLICATIONS [facility] J45.909 Unspecified asthma, UNSPECIFIED ASTHMA, Diagnosis 020 uncomplicated UNCOMPLICATED 11:30:00 AM [facility] D61.818 Other pancytopenia OTHER PANCYTOPENIA Diagnosis 0 [facility] 11:30:00 AM [facility] K80.20 Calculus of CALCULUS OF Diagnosis 04/13/2020 gallbladder without GALLBLADDER W/O 11:30:00 AM [facility] cholecystitis CHOLECYSTITIS W/O EDT [facility] matthew without obstruction OBSTRUCTION Cent er R10.9 Unspecified UNSPECIFIED Diagnosis 04/13/2020 abdominal pain ABDOMINAL PAIN 11:30:00 [facility] R13.10 Dysphagia, DYSPHAGIA, Diagnosis 10/30/2019 unspecified UNSPECIFIED 04:50:00 PM [facility] T18.108A Unspecified foreign UNSP FOREIGN BODY IN Diagnosis 2019 body in esophagus ESOPHAGUS CAUSING 04:50:00 PM [facility] causing other OTH INJURY, INIT EST Medic al injury, initial Center encounter G89.29 Other chronic pain OTHER CHRONIC PAIN Diagnosis 9 [facility] 07:23:00 PM [facility] F10.129 Alcohol abuse with ALCOHOL ABUSE WITH Diagnosis 9 [facility] intoxication, INTOXICATION, 07:23:00 PM [facility] unspecified UNSPECIFIED [facility] R60.0 Localized edema LOCALIZED EDEMA Diagnosis 06/14/2019 Velia t 07:23:00 PM [facility] I35.9 Nonrheumatic aortic NONRHEUMATIC AORTIC Diagnosis 019 valve disorder, VALVE DISORDER, 08:01:00 AM Artem anthony unspecified UNSPECIFIED [facility] 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 04/25/2019 int insufficiency INSUFFICIENCY 08:01:00 AM [facility] R42 Dizziness and DIZZINESS AND Diagnosis 04/21/2019 [facility] giddiness GIDDINESS 11:20:00 AM [facility] F10.10 Alcohol abuse, ALCOHOL ABUSE, Diagnosis 04/03/2019 uncomplicated UNCOMPLICATED 08:06:00 PM [facility] M79.606 Pain in leg, PAIN IN LEG, Diagnosis 04/02/2019 unspecified UNSPECIFIED 09:06:00 PM [facility] Surgeries/Procedures Procedure Description Date Indications Data Source(s) Injection, vitamin b-12 06/25/2019 eCW3 ([place] cyanocobalamin, up to 12:00:00 AM EDT [facility]) 1000 mcg Injection, ketorolac 06/25/2019 eCW3 ([facility] [place] tromethamine, per 15 mg 12:00:00 AM EDT [facility]) Injection, vitamin b-12 06/11/2019 eCW3 ([place] cyanocobalamin, up to 12:00:00 AM EDT [facility]) 1000 mcg Injection, vitamin b-12 04/09/2019 eCW3 ([place] cyanocobalamin, up to 12:00:00 AM EDT [facility]) 1000 mcg Federally qualified 07/05/2018 eCW2 ([facility] ([facility]) 12:00:00 AM EDT [facility]) visit, established patient; a medically-necessary, [id number]-du-[id number] encounter (one-on-one) between an established patient and a [facility] practitioner during which time one or more [facility] services are rendered and includes a typical bundle of medicare-covered services that 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 receiving a [facility] visit Results ID Date Data Source Urinalysis.[id number] 04/13/2020 05:20:00 PM EDT [facility] 0 Name Value Range Interpretation Description Data Sup porting Code Source(s) Document(s ) Color of Urine YELLOW <content Saint styleCode="Madelaine Carlos d">Color, Medical Urine Center </content>DARK YELLOW <content styleCode="Carla lics"> (YELLOW )</content> Ketones NEGATIVE <content Saint [Mass/volume] styleCode="Madelaine Carlos in Urine by d">Urine Medical Test strip Ketone Center </content>NEGA TIVE MG/DL<content styleCode="Carla lics"> (NEGATIVE MG/DL)</conten t> Specific 1.015-1.02 <content Saint gravity of 5 styleCode="Madelaine Carlos Urine by Test d">Urine Medical strip Specific Center [place] </content>1.02 0 <content styleCode="Carla lics"> (1.015-1.025 )</content> UNK CLEAR <content Saint styleCode="Madelaine Carlos d">Urine Medical Clarity Center </content>MARIEL R <content styleCode="Carla lics"> (CLEAR )</content> UNK NEGATIVE <content Saint styleCode="Madelaine Carlos d">Urine Medical Bilirubin Center </content>NEGA TIVE <content styleCode="Carla lics"> (NEGATIVE )</content> Glucose NEGATIVE <content Saint [Mass/volume] styleCode="Madelaine Carlos in Urine by d">Urine Medical Test strip Glucose Center </content>NEGA TIVE MG/DL<content styleCode="Carla lics"> (NEGATIVE MG/DL)</conten t> Urobilinogen 0.2-1.0 Above high <content Saint [Units/volume] normal styleCode="Madelaine Gallardos in Urine by d">Urine Medical Test strip Urobilinogen Center </content>4.0 MG/DL H<content styleCode="Carla lics"> (0.2-1.0 MG/DL)</conten t> Protein NEGATIVE <content Saint [Mass/volume] styleCode="Madelaine Carlos in Urine by d">Urine Medical Test strip Protein Center </content>NEGA TIVE MG/DL<content styleCode="Carla lics"> (NEGATIVE MG/DL)</conten t> Hemoglobin NEGATIVE <content Saint [Presence] in styleCode="Madelaine Gallardos Urine by Test d">Urine Blood Medical strip </content>NEGA Center TIVE <content styleCode="Carla lics"> (NEGATIVE )</content> pH of Urine by 4.5-8.0 <content Saint Test strip styleCode="Madelaine Carlos d">Urine pH Medical </content>7.5 Center <content styleCode="Carla lics"> (4.5-8.0 )</content> Leukocyte NEGATIVE <content Saint esterase styleCode="Madelaine Gallardos [Presence] in d">Urine Medical Urine by Test Leukocyte Center strip </content>NEGA TIVE <content styleCode="Carla lics"> (NEGATIVE )</content> Nitrite NEGATIVE <content Saint [Presence] in styleCode="Madelaine Gallardos Urine by Test d">Urine Medical strip Nitrite Center </content>NEGA TIVE <content styleCode="Carla lics"> (NEGATIVE )</content> ID Date Data Source Liver 04/13/2020 03:05:00 PM EDT [facility] Profile.[id number] Name Value Range Interpretation Description Data Sup porting Code Source(s) Document(s ) Alanine 7-50 <content Saint aminotransferase styleCode="Bold"> Luca hs [Enzymatic Alanine Medical activity/volume] Aminotransferase Center in Serum or Plasma (ALT) </content>15 IU/L<content styleCode="Italic s"> (7-50 IU/L)</content> Alkaline 38-126 Above high <content Saint phosphatase normal styleCode="Bold"> Carlos [Enzymatic Alkaline Medical activity/volume] Phosphatase (ALP) Cente r in Serum or Plasma </content>165 IU/L H<content styleCode="Italic s"> (38-126 IU/L)</content> Aspartate 17-59 <content Saint aminotransferase styleCode="Bold"> Luca hs [Enzymatic Aspartate Medical activity/volume] Aminotransferase Center in Serum or Plasma (AST) </content>43 IU/L<content styleCode="Italic s"> (17-59 IU/L)</content> Bilirubin.total 0.2-1.3 Above high <content Saint [Mass/volume] in normal styleCode="Bold"> Luca hs Serum or Plasma Bilirubin Total Medical </content>2.1 Center MG/DL H<content styleCode="Italic s"> (0.2-1.3 MG/DL)</content> Albumin 3.5-5.0 Below low <content Saint [Mass/volume] in normal styleCode="Bold"> Luca hs Serum or Plasma Albumin Medical </content>3.0 Center G/DL L<content styleCode="Italic s"> (3.5-5.0 G/DL)</content> UNK 0.0-0.3 <content Saint styleCode="Bold"> Carlos Bilirubin, Direct Medical </content>< 0.2 Center MG/DL<content styleCode="Italic s"> (0.0-0.3 MG/DL)</content> ID Date Data Source HematologyRou.[id number] 04/13/2020 03:05:00 PM EDT [facility] 0400 Name Value Range Interpretation Description Data Sup porting Code Source(s) Document(s ) Leukocytes 4.4-11.0 Below low normal <content Saint [#/volume] in styleCode="Bold [facility] Blood by ">White Blood Medical Automated count Cell Count Center </content>3.84 KCUMM L<content styleCode="Ital ics"> (4.4-11.0 KCUMM)</content > Erythrocytes 4.4-5.9 Below low normal <content Saint [#/volume] in styleCode="Bold Carlos Blood by ">Red Blood Medical Automated count Cell Count Center </content>3.76 MCUMM L<content styleCode="Ital ics"> (4.4-5.9 MCUMM)</content > Erythrocyte mean 80.0-100 <content Saint corpuscular .0 styleCode="Bold Carlos volume [Entitic ">Mean Medical volume] by Corpuscular Center Automated count Volume </content>90.7 FL<content styleCode="Ital ics"> (80.0-100.0 FL)</content> Hemoglobin 13.5-17. Below low normal <content Saint [Mass/volume] in 5 styleCode="Bold Carlos Blood ">Hemoglobin Medical </content>11.0 Center G/DL L<content styleCode="Ital ics"> (13.5-17.5 G/DL)</content> Erythrocyte mean 26.0-34. <content Saint corpuscular 0 styleCode="Bold Carlos hemoglobin ">Mean Medical [Entitic mass] Corposcular Center by Automated Hemoglobin count </content>29.3 PG<content styleCode="Ital ics"> (26.0-34.0 PG)</content> Erythrocyte mean 32.0-37. <content Saint corpuscular 0 styleCode="Bold Carlos hemoglobin ">Mean Corpus. Medical concentration Hgb Center [Mass/volume] by Concentration Automated count (MCHC) </content>32.3 G/DL<content styleCode="Ital ics"> (32.0-37.0 G/DL)</content> Hematocrit 41.0-53. Below low normal <content Saint [Volume 0 styleCode="Bold Carlos Fraction] of ">Hematocrit Medical Blood by </content>34.1 Center Automated count % L<content styleCode="Ital ics"> (41.0-53.0 %)</content> UNK 0.0 <content Saint styleCode="Bold Carlos ">Nucleated Red Medical Blood Cell Center Count </content>0.00 KCUMM<content styleCode="Ital ics"> (0.0 KCUMM)</content > Erythrocyte 11.5-14. Above high <content Saint distribution 5 normal styleCode="Bold Carlos width [Ratio] by ">Red Cell Medical Automated count Distribution Center Width </content>15.6 % H<content styleCode="Ital ics"> (11.5-14.5 %)</content> Platelet mean 8.0-11.0 Above high <content Saint volume [Entitic normal styleCode="Bold Carlos volume] in Blood ">Mean Platelet Medical by Automated Volume Center count </content>11.3 FL H<content styleCode="Ital ics"> (8.0-11.0 FL)</content> Platelets 130-400 Below low normal <content Saint [#/volume] in styleCode="Bold Carlos Blood by ">Platelet Medical Automated count Count Center </content>102 KCUMM L<content styleCode="Ital ics"> (130-400 KCUMM)</content > UNK 0 <content Saint styleCode="Bold Carlos ">Nucleated Red Medical Blood Cell Center </content>0.0 /100<content styleCode="Ital ics"> (0 /100)</content> ID Date Data Source GFR(Creatinine).[id number] 04/13/2020 03:05:00 PM EDT [facility] 0-0400 Name Value Range Interpretation Code Description Data Jackie rce(s) Supporting Document(s ) UNK > 60 <content [facility] Carlos styleCode="Bold"> Medical Cent er EGFR </content>138 GFR<content styleCode="Italic s"> (> 60 GFR)</content> ID Date Data Source CHMROUTINECCDA.[id number] 04/13/2020 03:05:00 PM EDT [facility] -0400 Name Value Range Interpretation Description Data Sup porting Code Source(s) Document(s ) Lactate 0.7-2.0 <content Saint Carlos [Mass/volum styleCode="Bold Medical e] in Serum ">Lactic Acid Center or Plasma </content>1.8 MMOLL<content styleCode="Ital ics"> (0.7-2.0 MMOLL)</content > UNK 30-110 <content [facility] Carlos styleCode="Bold Medical ">Amylase Center </content>77 IU/L<content styleCode="Ital ics"> (30-110 IU/L)</content> Lipase 23-300 <content Saint Carlos [Enzymatic styleCode="Bold Medical activity/vo ">Lipase Center lume] in </content>182 Serum or IU/L<content Plasma styleCode="Ital ics"> (23-300 IU/L)</content> ID Date Data Source [id number] 04/13/2020 03:05:00 PM EDT [facility] Name Value Range Interpretation Description Data Sup porting Code Source(s) Document(s ) Sodium 137-145 <content Saint [Moles/volume] in styleCode="Bold"> [facility] Serum or Plasma Sodium Medical </content>140 Center MEQ/L<content styleCode="Italic s"> (137-145 MEQ/L)</content> UNK 9-20 <content Saint styleCode="Bold"> Carlos BUN </content>15 Medical MG/DL<content Center styleCode="Italic s"> (9-20 MG/DL)</content> Carbon dioxide, 22-30 <content Saint total styleCode="Bold"> Carlos [Moles/volume] in Carbon Dioxide Medical Serum or Plasma </content>23 Center MEQ/L<content styleCode="Italic s"> (22-30 MEQ/L)</content> Potassium <content Saint [Moles/volume] in styleCode="Bold"> [facility]ie [facility] Serum or Plasma Potassium Medical </content>Test Center not performed. MEQ/L (Reference Range: not available)
Chloride 98-107 Above high <content Saint [Moles/volume] in normal styleCode="Bold"> Mandie phs Serum or Plasma Chloride Medical </content>112 Center MEQ/L H<content styleCode="Italic s"> (98-107 MEQ/L)</content> Creatinine 0.5-1.3 <content Saint [Mass/volume] in styleCode="Bold"> Luca hs Serum or Plasma Creatinine Medical </content>0.6 Center MG/DL<content styleCode="Italic s"> (0.5-1.3 MG/DL)</content> Calcium 8.4-10. <content Saint [Mass/volume] in 2 styleCode="Bold"> Luca hs Serum or Plasma Calcium Medical </content>9.1 Center MG/DL<content styleCode="Italic s"> (8.4-10.2 MG/DL)</content> Aspartate 17-59 <content Saint aminotransferase styleCode="Bold"> Luca hs [Enzymatic Aspartate Medical activity/volume] Aminotransferase Center in Serum or Plasma (AST) </content>43 IU/L<content styleCode="Italic s"> (17-59 IU/L)</content> Glucose 74-106 <content Saint [Mass/volume] in styleCode="Bold"> Luca hs Serum or Plasma Glucose Medical </content>95 Center MG/DL<content styleCode="Italic s"> (74-106 MG/DL)</content> UNK > 60 <content Saint styleCode="Bold"> Carlos EGFR Medical </content>138 Center GFR<content styleCode="Italic s"> (> 60 GFR)</content> Albumin 3.5-5.0 Below low <content Saint [Mass/volume] in normal styleCode="Bold"> Luca hs Serum or Plasma Albumin Medical </content>3.0 Center G/DL L<content styleCode="Italic s"> (3.5-5.0 G/DL)</content> Alanine 7-50 <content Saint aminotransferase styleCode="Bold"> Luca hs [Enzymatic Alanine Medical activity/volume] Aminotransferase Center in Serum or Plasma (ALT) </content>15 IU/L<content styleCode="Italic s"> (7-50 IU/L)</content> Bilirubin.total 0.2-1.3 Above high <content Saint [Mass/volume] in normal styleCode="Bold"> Luca hs Serum or Plasma Bilirubin Total Medical </content>2.1 Center MG/DL H<content styleCode="Italic s"> (0.2-1.3 MG/DL)</content> Alkaline 38-126 Above high <content Saint phosphatase normal styleCode="Bold"> Carlos [Enzymatic Alkaline Medical activity/volume] Phosphatase (ALP) Cente r in Serum or Plasma </content>165 IU/L H<content styleCode="Italic s"> (38-126 IU/L)</content> ID Date Data Source [id number] 02/13/2020 04:24:00 PM EDT [facility] Name Value Range Interpretation Code Description Data Jackie rce(s) Supporting Document(s ) SARS-CoV-2 [facility] RNA Resp [facility] Ql BRENDAN+probe This lab was ordered by [facility] a nd reported by Health System. ID Date Data Source [id number] 02/12/2020 10:45:00 AM EDT [facility] Name Value Range Interpretation Code Description Data Jackie rce(s) Supporting Document(s ) SARS-CoV-2 [facility] RNA XXX [facility] BRENDAN+probe This lab was ordered by [facility] a nd reported by Health System. ID Date Data Source [id number] 01/29/2020 11:03:00 AM EDT [facility] Name Value Range Interpretation Code Description Data Jackie rce(s) Supporting Document(s ) [facility] BRENDAN+probe This lab was ordered by [facility] a nd reported by Health System. ID Date Data Source [id number] 01/21/2020 09:50:00 AM EDT [facility] Name Value Range Interpretation Code Description Data Jackie rce(s) Supporting Document(s ) SARS-CoV-2 [facility] Ql BRENDAN+probe This lab was ordered by [facility] a nd reported by Health System. ID Date Data Source [id number] 01/07/2020 07:30:00 PM EDT [facility] Name Value Range Interpretation Code Description Data Jackie rce(s) Supporting Document(s ) [facility] BRENDAN+probe This lab was ordered by [facility] a nd reported by Health System. ID Date Data Source [id number] 12/18/2019 09:00:00 PM EDT [facility] Name Value Range Interpretation Code Description Data Jackie rce(s) Supporting Document(s ) SARS-CoV-2 [facility] RNA XXX Ql [facility] BRENDAN+probe This lab was ordered by [facility] a nd reported by Health System. ID Date Data Source [employer].[id number] 04/03/2019 12:00:00 AM EDT [facility] -0400 Name Value Range Interpretation Description Data Sup porting Code Source(s) Document(s ) Troponin < 0.034 <content Saint I.cardiac styleCode="Bold Carlos [Mass/volume ">Troponin I Medical ] in Serum </content>0.022 Center or Plasma NG/ML<content styleCode="Ital ics"> (< 0.034 NG/ML)</content > ID Date Data Source Urinalysis.[id number] 04/02/2019 11:07:00 PM EDT [facility] 0 Name Value Range Interpretation Description Data Sup porting Code Source(s) Document(s ) UNK CLEAR <content Saint styleCode="Madelaine Carlos d">Urine Medical Clarity Center </content>HAZY <content styleCode="Carla lics"> (CLEAR )</content> Glucose NEGATIVE <content Saint [Mass/volume] styleCode="Madelaine Carlos in Urine by d">Urine Medical Test strip Glucose Center </content>NEGA TIVE MG/DL<content styleCode="Carla lics"> (NEGATIVE MG/DL)</conten t> Color of Urine YELLOW <content Saint styleCode="Madelaine Carlos d">Color, Medical Urine Center </content>AMBE R <content styleCode="Carla lics"> (YELLOW )</content> UNK NEGATIVE <content Saint styleCode="Madelaine Carlos d">Urine Medical Bilirubin Center </content>MODE RATE <content styleCode="Carla lics"> (NEGATIVE )</content> Ketones NEGATIVE <content Saint [Mass/volume] styleCode="Madelaine Carlos in Urine by d">Urine Medical Test strip Ketone Center </content>TRAC E MG/DL<content styleCode="Carla lics"> (NEGATIVE MG/DL)</conten t> Hemoglobin NEGATIVE <content Saint [Presence] in styleCode="Madelaine Gallardos Urine by Test d">Urine Blood Medical strip </content>TRAC Center E <content styleCode="Carla lics"> (NEGATIVE )</content> Specific 1.015-1.02 <content Saint gravity of 5 styleCode="Madelaine Gallardos Urine by Test d">Urine Medical strip Specific Center [place] </content>1.02 5 <content styleCode="Carla lics"> (1.015-1.025 )</content> pH of Urine by 4.5-8.0 <content Saint Test strip styleCode="Madelaine Carlos d">Urine pH Medical </content>6.0 Center <content styleCode="Carla lics"> (4.5-8.0 )</content> Protein NEGATIVE <content Saint [Mass/volume] styleCode="Madelaine Gallardos in Urine by d">Urine Medical Test strip Protein Center </content>30 MG/DL<content styleCode="Carla lics"> (NEGATIVE MG/DL)</conten t> UNK 0-3 <content Saint styleCode="Madelaine Carlos d">Urine Red Medical Blood Cell Center </content>3-5 HPF<content styleCode="Carla lics"> (0-3 HPF)</content> Urobilinogen 0.2-1.0 Above high <content Saint [Units/volume] normal styleCode="Madelaine Gallardos in Urine by d">Urine Medical Test strip Urobilinogen Center </content>4.0 MG/DL H<content styleCode="Carla lics"> (0.2-1.0 MG/DL)</conten t> Leukocyte NEGATIVE <content Saint esterase styleCode="Madelaine Carlos [Presence] in d">Urine Medical Urine by Test Leukocyte Center strip </content>NEGA TIVE <content styleCode="Carla lics"> (NEGATIVE )</content> Nitrite NEGATIVE <content Saint [Presence] in styleCode="Madelaine Gonzalez Urine by Test d">Urine Medical strip Nitrite Center </content>NEGA TIVE <content styleCode="Carla lics"> (NEGATIVE )</content> UNK NEGATIVE <content Saint styleCode="Madelaine Gallardos d">Urine Medical Bacteria Center </content>FEW HPF<content styleCode="Carla lics"> (NEGATIVE HPF)</content> UNK <content Saint styleCode="Madelaine Gallardos d">Calcium Medical Oxalate Center Crystal </content>MODE RATE LPF (Reference Range: not available)<br/ > UNK 0-3 <content Saint styleCode="Madelaine Gallardos d">Urine White Medical Blood Cell Center </content>0-3 HPF<content styleCode="Carla lics"> (0-3 HPF)</content> UNK <content Saint styleCode="Madelaine Gallardos d">Hyaline Medical Cast Center </content>0-1 LPF (Reference Range: not available)<br/ > UNK <content Saint styleCode="Madelaine Gallardos d">Epithelial Medical Cell Center </content>0-2 LPF (Reference Range: not available)<br/ > UNK NONE SEEN <content styleCode="Madelaine Gallardos d">Urine Mucus Medical </content>MANY Center LPF<content styleCode="Carla lics"> (NONE SEEN LPF)</content> ID Date Data Source CHMROUTINECCDA.[id number] 04/02/2019 11:07:00 PM EDT [facility] -0400 Name Value Range Interpretation Description Data Sup porting Code Source(s) Document(s ) Cannabinoids <content Saint [Presence] in styleCode="Madelaine Gonzalez Urine by Screen d">Cannabinoid Medical method >50 ng/mL s Center </content>NEGA TIVE NG/ML (Reference Range: not available)<br/ > ID Date Data Source HematologyRou.[id number] 04/02/2019 09:50:00 PM EDT [facility] 0400 Name Value Range Interpretation Description Data Sup porting Code Source(s) Document(s ) Hematocrit 41.0-53. Below low normal <content Saint [Volume 0 styleCode="Bold Carlos Fraction] of ">Hematocrit Medical Blood by </content>40.1 Center Automated count % L<content styleCode="Ital ics"> (41.0-53.0 %)</content> Hemoglobin 13.5-17. <content Saint [Mass/volume] in 5 styleCode="Bold Carlos Blood ">Hemoglobin Medical </content>13.5 Center G/DL<content styleCode="Ital ics"> (13.5-17.5 G/DL)</content> Erythrocytes 4.4-5.9 <content Saint [#/volume] in styleCode="Bold Carlos Blood by ">Red Blood Medical Automated count Cell Count Center </content>4.64 MCUMM<content styleCode="Ital ics"> (4.4-5.9 MCUMM)</content > Leukocytes 4.4-11.0 <content Saint [#/volume] in styleCode="Bold Carlos Blood by ">White Blood Medical Automated count Cell Count Center </content>7.25 KCUMM<content styleCode="Ital ics"> (4.4-11.0 KCUMM)</content > Platelets 130-400 <content Saint [#/volume] in styleCode="Bold Carlos Blood by ">Platelet Medical Automated count Count Center </content>132 KCUMM<content styleCode="Ital ics"> (130-400 KCUMM)</content > Erythrocyte mean 32.0-37. <content Saint corpuscular 0 styleCode="Bold Carlos hemoglobin ">Mean Corpus. Medical concentration Hgb Center [Mass/volume] by Concentration Automated count (MCHC) </content>33.7 G/DL<content styleCode="Ital ics"> (32.0-37.0 G/DL)</content> Erythrocyte mean 26.0-34. <content Saint corpuscular 0 styleCode="Bold Carlos hemoglobin ">Mean Medical [Entitic mass] Corposcular Center by Automated Hemoglobin count </content>29.1 PG<content styleCode="Ital ics"> (26.0-34.0 PG)</content> Erythrocyte mean 80.0-100 <content Saint corpuscular .0 styleCode="Bold Carlos volume [Entitic ">Mean Medical volume] by Corpuscular Center Automated count Volume </content>86.4 FL<content styleCode="Ital ics"> (80.0-100.0 FL)</content> Erythrocyte 11.5-14. Above high <content Saint distribution 5 normal styleCode="Bold Carlos width [Ratio] by ">Red Cell Medical Automated count Distribution Center Width </content>19.4 % H<content styleCode="Ital ics"> (11.5-14.5 %)</content> Platelet mean 8.0-11.0 Above high <content Saint volume [Entitic normal styleCode="Bold Carlos volume] in Blood ">Mean Platelet Medical by Automated Volume Center count </content>12.7 FL H<content styleCode="Ital ics"> (8.0-11.0 FL)</content> UNK 1.6-7.3 <content Saint styleCode="Bold Carlos ">Neutrophil Medical Count Center </content>3.44 KCUMM<content styleCode="Ital ics"> (1.6-7.3 KCUMM)</content > Neutrophils 36-66 <content Saint [#/volume] in styleCode="Bold Carlos Blood by ">Neutrophil Medical Automated count </content>47.5 Center %<content styleCode="Ital ics"> (36-66 %)</content> Monocytes 3.0-10.0 Above high <content Saint [#/volume] in normal styleCode="Bold Carlos Blood by ">Monocyte Medical Automated count </content>12.4 Center % H<content styleCode="Ital ics"> (3.0-10.0 %)</content> UNK 1.0-4.8 <content Saint styleCode="Bold Carlos ">Lymphocyte Medical Count Center </content>1.85 KCUMM<content styleCode="Ital ics"> (1.0-4.8 KCUMM)</content > Lymphocytes 24.0-44. <content Saint [#/volume] in 0 styleCode="Bold Carlos Blood by ">Lymphocyte Medical Automated count </content>25.5 Center %<content styleCode="Ital ics"> (24.0-44.0 %)</content> UNK 0 <content Saint styleCode="Bold Carlos ">Nucleated Red Medical Blood Cell Center </content>0.0 /100<content styleCode="Ital ics"> (0 /100)</content> Eosinophils 0-5.0 Above high <content Saint [#/volume] in normal styleCode="Bold Carlos Blood by ">Eosinophil Medical Automated count </content>13.1 Center % H<content styleCode="Ital ics"> (0-5.0 %)</content> UNK 0.2-0.9 <content Saint styleCode="Bold Carlos ">Monocyte Medical Count Center </content>0.90 KCUMM<content styleCode="Ital ics"> (0.2-0.9 KCUMM)</content > Basophils 0.0-1.0 Above high <content Saint [#/volume] in normal styleCode="Bold Carlos Blood by ">Basophil Medical Automated count </content>1.1 % Center H<content styleCode="Ital ics"> (0.0-1.0 %)</content> UNK 0.0-0.3 <content Saint styleCode="Bold Carlos ">Basophil Medical Count Center </content>0.08 KCUMM<content styleCode="Ital ics"> (0.0-0.3 KCUMM)</content > UNK 0.0-0.6 Above high <content Saint normal styleCode="Bold Carlos ">Eosinophil Medical Count Center </content>0.95 KCUMM H<content styleCode="Ital ics"> (0.0-0.6 KCUMM)</content > UNK < 1 <content Saint styleCode="Bold Carlos ">Immature Medical Granulocyte Center Ratio </content>0.4 %<content styleCode="Ital ics"> (< 1 %)</content> UNK 0.0 <content Saint styleCode="Bold Carlos ">Nucleated Red Medical Blood Cell Center Count </content>0.00 KCUMM<content styleCode="Ital ics"> (0.0 KCUMM)</content > UNK 1.6-7.1 <content Saint styleCode="Bold Carlos ">Immature Medical Platelet Center Fraction </content>6.8 %<content styleCode="Ital ics"> (1.6-7.1 %)</content> UNK 0-0.1 <content Saint styleCode="Bold Carlos ">Immature Medical [facility] </content>0.03 KCUMM<content styleCode="Ital ics"> (0-0.1 KCUMM)</content > ID Date Data Source GFR(Creatinine).[id number] 04/02/2019 09:50:00 PM EDT [facility] 0-0400 Name Value Range Interpretation Code Description Data Jackie rce(s) Supporting Document(s ) UNK > 60 <content [facility] styleCode="Bold"> Medical Cent er EGFR </content>87 GFR<content styleCode="Italic s"> (> 60 GFR)</content> ID Date Data Source CardiacMarkers.[id number] 04/02/2019 09:50:00 PM EDT [facility] -0400 Name Value Range Interpretation Description Data Sup porting Code Source(s) Document(s ) Troponin < 0.034 <content [facility] I.cardiac styleCode="Bold Carlos [Mass/volume ">Troponin I Medical ] in Serum </content>0.023 Center or Plasma NG/ML<content styleCode="Ital ics"> (< 0.034 NG/ML)</content > ID Date Data Source [id number] 04/02/2019 09:50:00 PM EDT [facility] Name Value Range Interpretation Description Data Sup porting Code Source(s) Document(s ) Potassium 3.5-5.3 <content [facility] [Moles/volume] styleCode="Madelaine Carlos in Serum or d">Potassium Medical Plasma </content>4.9 Center MEQ/L<content styleCode="Carla lics"> (3.5-5.3 MEQ/L)</conten t> Sodium 137-145 <content [facility] [Moles/volume] styleCode="Madelaine Gallardos in Serum or d">Sodium Medical Plasma </content>145 Center MEQ/L<content styleCode="Carla lics"> (137-145 MEQ/L)</conten t> Glucose 74-106 Above high normal <content [facility] [Mass/volume] styleCode="Madelaine Gallardos in Serum or d">Glucose Medical Plasma </content>226 Center MG/DL H<content styleCode="Carla lics"> (74-106 MG/DL)</conten t> Carbon 22-30 <content [facility] dioxide, total styleCode="Madelaine Gallardos [Moles/volume] d">Carbon Medical in Serum or Dioxide Center Plasma </content>23 MEQ/L<content styleCode="Carla lics"> (22-30 MEQ/L)</conten t> Calcium 8.4-10.2 <content [facility] [Mass/volume] styleCode="Madelaine Gallardos in Serum or d">Calcium Medical Plasma </content>8.6 Center MG/DL<content styleCode="Carla lics"> (8.4-10.2 MG/DL)</conten t> Chloride 98-107 <content [facility] [Moles/volume] styleCode="Madelaine Gallardos in Serum or d">Chloride Medical Plasma </content>107 Center MEQ/L<content styleCode="Carla lics"> (98-107 MEQ/L)</conten t> UNK 9-20 <content [facility] styleCode="Madelaine Gallardos d">BUN Medical </content>16 Center MG/DL<content styleCode="Carla lics"> (9-20 MG/DL)</conten t> Creatinine 0.5-1.3 <content [facility] [Mass/volume] styleCode="Madelaine Gallardos in Serum or d">Creatinine Medical Plasma </content>0.9 Center MG/DL<content styleCode="Carla lics"> (0.5-1.3 MG/DL)</conten t> UNK > 60 <content [facility] styleCode="Madelaine Carlos d">EGFR Medical </content>87 Center GFR<content styleCode="Carla lics"> (> 60 GFR)</content> Procedure Social History Code Duration Value Status Description Data Source(s ) Smoking 05/14/2020 Never Smoker completed Never Smoker eCW3 ([place] 12:00:00 AM [facility]) Smoking 04/13/2020 Denies Ever completed Denies Ever [facility] 04:37:00 PM EDT Smoked Smoked Medical C enter Smoking 04/13/2020 Denies Ever completed Denies Ever [place] [facility] 12:20:00 PM EDT Smoked Smoked Medical C enter Smoking 04/13/2020 Denies Ever completed Denies Ever [place] [facility] 12:05:00 PM EDT Smoked Smoked Medical C enter Smoking 03/05/2020 Never Smoker completed Never Smoker eCW3 ([place] 12:00:00 AM T [facility]) Smoking 03/05/2020 Never Smoker completed Never Smoker eCW3 ([place] 12:00:00 AM [facility]) Smoking 10/30/2019 Denies Ever completed Denies Ever [facility] 08:16:00 PM EST Smoked Smoked Medical C enter Smoking 10/30/2019 Denies Ever completed Denies Ever [place] [facility] 07:09:00 PM EST Smoked Smoked Medical C enter Smoking 10/30/2019 Denies Ever completed Denies Ever [facility] 05:11:00 PM EST Smoked Smoked Medical C enter Smoking 10/15/2019 Never Smoker completed Never Smoker eCW3 ([place] 12:00:00 AM EST [facility]) Smoking 06/14/2019 Denies Ever completed Denies Ever [facility] 07:44:00 PM EDT Smoked Smoked Medical C enter Smoking 06/14/2019 Denies Ever completed Denies Ever [facility] 07:40:00 PM EDT Smoked Smoked Medical C enter Smoking 06/14/2019 Denies Ever completed Denies Ever [facility] 07:33:00 PM EDT Smoked Smoked Medical C enter Caffeine Use 04/21/2019 completed NEXTGEN (Mario nt Details 12:00:00 AM EDT [facility]) Smoking 04/21/2019 Unknown if completed Unknown if ever NEXTGEN ( [facility] 12:00:00 AM EDT ever smoked smoked [facility]) Smoking 04/03/2019 Denies Ever completed Denies Ever [facility]ner 10:09:00 PM EDT Smoked Smoked Medical C enter Smoking 04/03/2019 Denies Ever completed Denies Ever [facility] 08:07:00 PM EDT Smoked Smoked Medical C enter Smoking 04/02/2019 Denies Ever completed Denies Ever [facility] 11:50:00 PM EDT Smoked Smoked Medical C enter Smoking 04/02/2019 Denies Ever completed Denies Ever [facility] 09:38:00 PM EDT Smoked Smoked Medical C enter Smoking 04/02/2019 Denies Ever completed Denies Ever [facility] 09:17:00 PM EDT Smoked Smoked Medical C enter Smoking 04/02/2019 Denies Ever completed Denies Ever [facility] 09:07:00 PM EDT Smoked Smoked Medical C enter Smoking 08/26/2018 Denies Ever completed Denies Ever [facility] 07:21:00 PM EST Smoked Smoked Medical C enter Smoking 08/26/2018 Denies Ever completed Denies Ever [facility] 07:07:00 PM EST Smoked Smoked Medical C enter Smoking 08/26/2018 Denies Ever completed Denies Ever [facility] 06:01:00 PM EST Smoked Smoked Medical C enter Never Smoker completed Never Smoker eCW3 ([facility]) Never Smoker completed Never Smoker eCW3 ([facility]) Smoking Unknown if completed Unknown if ever [facility] anne ever smoked smoked Medical Cente r Never Smoker completed Never Smoker eCW3 ([facility]) Never Smoker completed Never Smoker eCW3 ([facility]) Smoking Never Smoker completed Never Smoker eCW2 ([facility]) Alcohol Use completed NEXTGEN (Velia veloz [facility]) Vital Signs ID Date Data Source UNK Name Value Range Interpretation Code Description Data Source(s) Body temperature 36.115878 36.593984 [facility] Respiratory rate 18 /min 18 /min [facility] Oxygen saturation 98 % 98 % [facility] Heather colon in Arterial blood [facility] by Pulse oximetry Heart rate 66 /min 66 /min [facility] Diastolic blood 72 mm[Hg] 72 mm[Hg] [facility] pressure [facility] Center Systolic blood 142 mm[Hg] 142 mm[Hg] [facility] Body weight 85.254214 kg 85.487014 kg [facility] Measured [facility] Center Body temperature 36.619776 36.767615 [facility] Respiratory rate 18 /min 18 /min [facility] Oxygen saturation 96 % 96 % [facility] in Arterial blood [facility] Center by Pulse oximetry Heart rate 84 /min 84 /min [facility] Body height 163.514733 163.751538 cm [facility] Medical [place] Diastolic blood 66 mm[Hg] 66 mm[Hg] [facility] pressure Medical Center Systolic blood 137 mm[Hg] 137 mm[Hg] [facility] Body mass index 31.9 kg/m2 31.9 kg/m2 [facility] (BMI) [Ratio] Medical [facility] ter Body temperature 36.121523 36.752901 [facility] Respiratory rate 16 /min 16 /min [facility] Oxygen saturation 100 % 100 % [facility] in Arterial blood [facility] Center by Pulse oximetry Heart rate 74 /min 74 /min [facility] Diastolic blood 95 mm[Hg] 95 mm[Hg] [facility] Systolic blood 176 mm[Hg] 176 mm[Hg] [facility] Body temperature 36.080610 36.783712 [facility] Respiratory rate 16 /min 16 /min [facility] Oxygen saturation 97 % 97 % [facility] in Arterial blood [facility] Center by Pulse oximetry Heart rate 70 /min 70 /min [facility] Diastolic blood 98 mm[Hg] 98 mm[Hg] [facility] Center Systolic blood 184 mm[Hg] 184 mm[Hg] [facility] Body temperature 37.516137 37.626551 [facility] Respiratory rate 14 /min 14 /min [facility] Oxygen saturation 95 % 95 % [facility] in Arterial blood [facility] by Pulse oximetry Heart rate 79 /min 79 /min [facility] Diastolic blood 85 mm[Hg] 85 mm[Hg] [facility] Systolic blood 175 mm[Hg] 175 mm[Hg] [facility] Body weight 86.287345 kg 86.716604 kg [facility] Body temperature 37.322530 37.[address] [facility] Respiratory rate 18 /min 18 /min [facility] Oxygen saturation 98 % 98 % [facility] in Arterial blood [facility] by Pulse oximetry Heart rate 92 /min 92 /min [facility] Body height 162.532207 162.274393 cm [facility] Diastolic blood 80 mm[Hg] 80 mm[Hg] [facility] Systolic blood 169 mm[Hg] 169 mm[Hg] [facility] Body mass index 32.6 kg/m2 32.6 kg/m2 [facility] (BMI) [Ratio] Medical Dia ter Diastolic blood 67 mm[Hg] 67 mm[Hg] eCW3 ([facility]) Systolic blood 158 mm[Hg] 158 mm[Hg] eCW3 ([facility]) Body temperature 97.9 [degF] 97.9 [degF] eCW3 ( [facility]) Body mass index 35.85 kg/m2 35.85 kg/m2 eCW3 (H son (BMI) [Ratio] [facility]) Body weight 204 [lb_av] 204 [lb_av] eCW3 ([facility]) Body height 63.25 [in_i] 63.25 [in_i] eCW3 ([facility]) Body temperature 36.693284 36.445888 [facility] Respiratory rate 17 /min 17 /min [facility] Oxygen saturation 96 % 96 % [facility] in [facility] by Pulse oximetry Heart rate 85 /min 85 /min [facility] Diastolic blood 65 mm[Hg] 65 mm[Hg] [facility] Systolic blood 135 mm[Hg] 135 mm[Hg] [facility] Body temperature 37.312282 37.413331 [facility] Respiratory rate 18 /min 18 /min [facility] Oxygen saturation 96 % 96 % [facility] in [facility] by Pulse oximetry Heart rate 90 /min 90 /min [facility] Diastolic blood 67 mm[Hg] 67 mm[Hg] [facility] Systolic blood 144 mm[Hg] 144 mm[Hg] [facility] Body temperature 36.045026 36.514212 [facility] Respiratory rate 18 /min 18 /min [facility] Oxygen saturation 96 % 96 % [facility] J osephs in Arterial blood [facility] Center by Pulse oximetry Heart rate 98 /min 98 /min [facility] Diastolic blood 84 mm[Hg] 84 mm[Hg] [facility] Systolic blood 139 mm[Hg] 139 mm[Hg] [facility] Body temperature 36.132753 36.592777 [facility] Respiratory rate 17 /min 17 /min [facility] Oxygen saturation 95 % 95 % [facility] in Arterial blood [facility] by Pulse oximetry Heart rate 113 /min 113 /min [facility] Diastolic blood 86 mm[Hg] 86 mm[Hg] [facility] Systolic blood 141 mm[Hg] 141 mm[Hg] [facility] Diastolic blood 73 mm[Hg] 73 mm[Hg] eCW3 ([facility]) Systolic blood 162 mm[Hg] 162 mm[Hg] eCW3 ([facility]) Body temperature 98.2 [degF] 98.2 [degF] eCW3 ( [facility]) Body mass index 36.20 kg/m2 36.20 kg/m2 eCW3 (Lavinia wilder (BMI) [Ratio] [facility]) Body weight 206 [lb_av] 206 [lb_av] eCW3 ([facility]) Body height 63.25 [in_i] 63.25 [in_i] eCW3 ([facility]) Diastolic blood 75 mm[Hg] 75 mm[Hg] eCW3 ([facility]) Systolic blood 155 mm[Hg] 155 mm[Hg] eCW3 ([facility]) Body temperature 97.9 [degF] 97.9 [degF] eCW3 ( [facility]) Body mass index 35.50 kg/m2 35.50 kg/m2 eCW3 (H [facility] (BMI) [Ratio] [facility]) Body weight 202 [lb_av] 202 [lb_av] eCW3 ([facility]) Body height 63.25 [in_i] 63.25 [in_i] eCW3 ([facility]) Body temperature 37.215543 37.905174 [facility] Respiratory rate 18 /min 18 /min [facility] Oxygen saturation 96 % 96 % [facility] in Arterial blood Medical Center by Pulse oximetry Heart rate 74 /min 74 /min [facility] Diastolic blood 77 mm[Hg] 77 mm[Hg] [facility] Systolic blood 152 mm[Hg] 152 mm[Hg] [facility] Body temperature 37.563001 37.408100 [facility] Respiratory rate 18 /min 18 /min [facility] Oxygen saturation 95 % 95 % [facility] in Arterial blood Medical Center by Pulse oximetry Heart rate 86 /min 86 /min [facility] Diastolic blood 82 mm[Hg] 82 mm[Hg] [facility] Systolic blood 173 mm[Hg] 173 mm[Hg] [facility] Body temperature 37.294665 37.509017 [facility] Respiratory rate 19 /min 19 /min [facility] Oxygen saturation 96 % 96 % [facility] in Arterial blood Medical Center by Pulse oximetry Heart rate 83 /min 83 /min [facility] Diastolic blood 78 mm[Hg] 78 mm[Hg] [facility] Systolic blood 163 mm[Hg] 163 mm[Hg] [facility] Body temperature 37.942963 37.221044 [facility] Respiratory rate 18 /min 18 /min [facility] Oxygen saturation 97 % 97 % [facility] in Arterial blood Medical Center by Pulse oximetry Heart rate 96 /min 96 /min [facility] Diastolic blood 90 mm[Hg] 90 mm[Hg] [facility] Systolic blood 174 mm[Hg] 174 mm[Hg] [facility] Body temperature 37.416119 37.479256 [facility] Respiratory rate 17 /min 17 /min [facility] Oxygen saturation 98 % 98 % [facility] in Arterial blood Medical Center by Pulse oximetry Heart rate 114 /min 114 /min [facility] Diastolic blood 85 mm[Hg] 85 mm[Hg] [facility] Systolic blood 175 mm[Hg] 175 mm[Hg] [facility] Diastolic blood 69 mm[Hg] 69 mm[Hg] eCW3 ([facility]) Systolic blood 154 mm[Hg] 154 mm[Hg] eCW3 ([facility]) Body temperature 97.6 [degF] 97.6 [degF] eCW3 ( [facility]) Body mass index 34.97 kg/m2 34.97 kg/m2 eCW3 ([facility] (BMI) [Ratio] [facility]) Body weight 199 [lb_av] 199 [lb_av] eCW3 ([facility]) Body height 63.25 [in_i] 63.25 [in_i] eCW3 ([facility]) Diastolic blood 148 mm[Hg] 148 mm[Hg] [facility] Systolic blood 70 mm[Hg] 70 mm[Hg] [facility] Heart rate 72 /min 72 /min [facility] Deprecated Oxygen 98 % 98 % [facility]phs saturation in Medical Dia ter Capillary blood by Oximetry Respiratory rate 19 /min 19 /min [facility] Body temperature 37.363763 37.538239 [facility] Diastolic blood 66 mm[Hg] 66 mm[Hg] eCW2 ([facility]) Systolic blood 143 mm[Hg] 143 mm[Hg] eCW2 ([facility]) Body temperature 98.4 [degF] 98.4 [degF] eCW2 ( [facility]) Body mass index 33.74 kg/m2 33.74 kg/m2 eCW2 ([facility] (BMI) [Ratio] [facility]) Body weight 192 [lb_av] 192 [lb_av] eCW2 ([facility]) Body height 63.25 63.25 [in_us] eCW2 ([facility] [in_us] [facility]) Patient Treatment Plan of Care Planned Activity Planned Date Details Description Data Source (s) Albuterol 0.83 MG/ML 03/05/2020 12:00:00 eCW3 ([place] [facility] AM EDT [facility]) Albuterol 0.83 MG/ML 03/05/2020 12:00:00 eCW3 ([place] [facility] AM EDT [facility]) Albuterol 0.83 MG/ML 03/05/2020 12:00:00 eCW3 ([place] [facility] AM EDT [facility]) Albuterol 0.83 MG/ML 03/05/2020 12:00:00 eCW3 ([place] [facility] AM EDT [facility]) pantoprazole 40 MG 10/15/2019 12:00:00 eC W3 ([place] Delayed Release Oral AM EST Health Care) Tablet Famotidine 40 MG Oral 10/15/2019 12:00:00 eCW3 ([place] Tablet [Pepcid] AM EST Health Care) Blood Pressure Monitor - eCW 3 ([facility]) valsartan 320 MG Oral eCW3 ( [facility] Tablet [facility]) Metoprolol Tartrate 25 MG eC W3 ([facility] Oral Tablet Health Care) Furosemide 40 MG Oral eCW3 ( [place] Tablet [Lasix] [facility]) prednisolone 3 MG/ML Oral Sa [facility] 120 ACTUAT Budesonide eCW2 ( [facility] 0.16 MG/ACTUAT / Health Care ) formoterol fumarate 0.0045 MG/ACTUAT Metered Dose Inhaler [Symbicort] 200 ACTUAT Albuterol 0.09 eC W2 ([place] MG/ACTUAT Metered Dose Healt h Care) Inhaler [Ventolin] Metoprolol Tartrate 25 MG eC W2 ([place] Oral Tablet [facility]) ferrous sulfate 325 MG eCW2 ([place] Delayed Release Oral Health [facility]) Tablet valsartan 80 MG Oral eCW2 ([facility] Tablet Health Care)
--- NOTE | 2020-06-07 09:24 | PDOC ---
History of Present Illness - General Chief Complaint: Pain Stated Complaint: gtube replacement Time Seen by Provider: 06/07/20 08:43 - History of Present Illness Initial Comments: HPI Pt is a 80 yo M with a PMH of Covid in November, alcoholic cirrhosis, esophogeal SCC s/p PEG d/t strictures (last chemo tx 3 months ago), HTN, HLD, COPD, CHF, GERD, and asthma presenting to the ED after his PEG tube fell out yesterday edelmira najera at 6 pm; pt not sure how tube fell out. Pt had PEG tube placed 6 months ago at [facility] ([address]). Pt is able to eat soft foods, liquids, and pills by mouth. Denies increased pain or drainage from the PEG tube side or recent fevers/chills. Pt also complains of RUQ abdominal pain and R sided back pain, although he reports that he has had this pain for at least 3 months and it is intermittent + has not worsened. Pt denies chest pain, SOB, weakness, nausea, vomiting, diarrhea, constipation, dysuria, urinary frequency, skin changes, or changes in strength or sensation. Pt also with a cough that he reports has been present for "months." PMHX: as in HPI PSHX: as in HPI Meds: Home Medications Medication Instructions Recorded Furosemide 40 mg PO DAILY 01/18/20 Metoprolol Tartrate 25 mg PO DAILY 01/18/20 Valsartan 320 mg PO DAILY 01/18/20 Albuterol Sulfate Inhaler - 2 inh PO Q4H 05/14/20 [Ventolin Hfa Inhaler -] Budesonide/Formeterol Fumarate 1 inh PO BID 05/14/20 [SYMBICORT 160/4.5mcg -] Lidocaine 5% Patch [Lidoderm Patch 1 patch TP DAILY #7 patch 05/14/20 -] Oxybutynin Chloride [Oxybutynin 10 mg PO DAILY 05/14/20 Chloride ER] Pantoprazole Sodium [Protonix] 40 mg PO DAILY 05/14/20 Tamsulosin HCl [Flomax] 0.4 mg PO DAILY 05/14/20 Allergies: nkda Tob: denies Etoh: reports occasional use Rec drugs: denies PCP: Briana [place] GENERAL/CONSTITUTIONAL: No fever or chills. No weakness. HEAD, EYES, EARS, NOSE AND THROAT: No change in vision. No ear pain or discharge. No sore throat. + cough CARDIOVASCULAR: No chest pain or shortness of breath RESPIRATORY: No cough, wheezing, or hemoptysis. GASTROINTESTINAL: No nausea, vomiting, diarrhea or constipation. + RUQ pain GENITOURINARY: No dysuria, frequency, or change in urination. MUSCULOSKELETAL: No joint or muscle swelling or pain. No neck pain. + R mid back pain SKIN: No rash NEUROLOGIC: No headache, vertigo, loss of consciousness, or change in st rength/sensation. ENDOCRINE: No increased thirst. No abnormal weight change HEMATOLOGIC/LYMPHATIC: No anemia, easy bleeding, or history of blood clots. ALLERGIC/IMMUNOLOGIC: No hives or skin allergy. PE GENERAL: Awake, alert, and fully oriented, in no acute distress HEAD: No signs of trauma, normocephalic, atraumatic EYES: PERRLA, EOMI, sclera anicteric, conjunctiva clear ENT: Auricles normal inspection, hearing grossly normal, nares patent, oropharynx clear without exudates. Moist mucosa NECK: Normal ROM, supple, no lymphadenopathy, JVD, or masses LUNGS: No distress, speaks full sentences, clear to auscultation bilaterally HEART: Regular rate and rhythm, normal S1 and S2, no murmurs, rubs or gallops, peripheral pulses normal and equal bilaterally. ABDOMEN: Soft, normoactive bowel sounds. Mild epigastric tenderness. No guarding, no rebound. Cheney's sign negative. PEG tube side with no increased erythema, minimal seorsangineous drainage from site; PEG tube site closed. EXTREMITIES : Normal inspection, Normal range of motion, no edema. No clubbing or cyanosis. NEUROLOGICAL: Cranial nerves II through XII grossly intact. Normal speech, no focal sensorimotor deficits SKIN: Warm, Dry, normal turgor, no rashes or lesions noted 06/07/20 09:54 06/07/20 13:51 Past History - Medical History Allergies/Adverse Reactions: Allergies Allergy/AdvReac Type Severity Reaction Status Date / Time No Known Allergies Allergy Verified 06/07/20 08:27 Home Medications: Ambulatory Orders Furosemide 40 mg PO Q48H 01/18/20 Metoprolol Tartrate 25 mg PO DAILY 01/18/20 Valsartan 160 mg PO DAILY 01/18/20 Pantoprazole Sodium [Protonix] 40 mg PO DAILY 05/14/20 Dextrose 5%-Normal Saline [D5-Ns -] 100 ml IV ASDIR infus.bag 06/07/20 oxyCODONE HCL [Oxycodone HCl] 5 mg PO Q4HWA PRN 06/07/20 Anemia: No Asthma: Yes Cancer: Yes (throat) Cardiac Disorders: No CVA: No COPD: Yes CHF: No Dementia: No Diabetes: No GI Disorders: Yes (ACID REFLUX) Disorders: Yes (OVERACT BLADDER) HTN: Yes Hypercholesterolemia: Yes Liver Disease: Yes (CIRRHOSIS,FATTY LIVER) Seizures: No Thyroid Disease: No - Surgical History Abdominal Surgery: Yes Appendectomy: No Cardiac Surgery: No Cholecystectomy: No Lung Surgery: No Neurologic Surgery: No Orthopedic Surgery: Yes (R LEG ORIF) - Immunization History Immunization Up to Date: Yes - Psycho-Social/Smoking History Smoking History: Never smoked Have you smoked in the past 12 months: No Number of Cigarettes Smoked Daily: 0 If you are a former smoker, when did you quit?: Cigars Per Day: 0 - Substance Abuse Hx (Audit-C & DAST Scrn) How often the patient has a drink containing alcohol: Monthly or less Number of drinks the patient has on a typical day: 1 or 2 How often the patient has six or more drinks on one occasion: Never Score: In Men: 4 or > Positive; In Women: 3 or > Positive: 1 Screen Result (Pos requires Nsg. Audit-10AR): Negative In the last yr the pt used illegal drug/Rx for NonMed reason: No Score: Yes response is considered Positive: 0 Screen Result (Positive result requires Nsg. DAST-10): Negative *Physical Exam - Vital Signs Last Vital Signs Temp Pulse Resp BP Pulse Ox 98.3 F 62 16 155/74 100 06/07/20 08:20 06/07/20 08:20 06/07/20 08:20 06/07/20 08:20 06/07/20 08:20 ED Treatment Course - LABORATORY CBC & Chemistry Diagram: 06/07/20 10:15 06/07/20 11:55 - RADIOLOGY Radiology Studies Ordered: Category Date Time Status CXRPORT [CHEST X-RAY PORTABLE*] [RAD] Stat Radiology 06/07/20 09:13 Ordered Medical Decision Making - Medical Decision Making Pt is a 80 yo M with a PMH of Covid in November, alcoholic cirrhosis, esophogeal SCC s/p PEG d/t strictures (last chemo tx 3 months ago), HTN, HLD, COPD, CHF, GERD, and asthma presenting to the ED after his PEG tube fell out yesterday evening; also with RUQ pain DDX including but not limited to: cholecystitis (acute vs chronic), biliary colic, pancreatitis (gallstone), cirrhosis (or other liver pathology), GERD, worsening esophageal carcinoma, pericarditis (h/o covid) W/U: - CBC, CMP, lipase, UA, Urine culture - EKG NSR, sinus salomón (59 bpm), [place] intervl 154, QRS 90, QT/QTc 446/441; no acute changes - CXR with no acute cardiopulmonary finding - POCUS with gallstones and wall edema; wall thickness upper limit of normal; no CBD dilation; GB size normal; sonographic Cheney's negative. -CT Ab/Pel w/contrast Tx: - IVF 06/07/20 10:57 - Na 133; K 7.2 (hemolyzed); T Bili 2.5, AST 127, ALT 24, Alk Phos 152 - Will repeat BMP - Will plan to admit for re-placement of PEG tube 06/07/20 12:41 CT A/P - consistent with cirrhosis, mild splenomegaly + varices; cholelithiasis with slightly thick walled GB; no acute cholecystitis; no pancreatitis 06/07/20 12:56 - Repeat BMP with Na 136 K 5.0 Pt signed out and admitted. 06/07/20 13:39 Discharge - Discharge Information Problems reviewed: Yes Clinical Impression/Diagnosis: PEG (percutaneous endoscopic gastrostomy) adjustment/replacement/removal Condition: Stable - Admission Yes - Follow up/Referral - Patient Discharge Instructions - Post Discharge Activity
[2020-06-07] MEDS ORDERED: SODIUM CHLORIDE 1,000 ML IV STA (09:52)
--- NOTE | 2020-06-07 09:55 | PDOC ---
Attending Attestation - Resident Resident Name: Patricio Fry - ED Attending Attestation I have performed the following: I have examined & evaluated the patient, The case was reviewed & discussed with the resident, I agree w/resident's findings & plan, Exceptions are as noted - HPI HPI: 06/07/20 09:50 80 yo male h/o esophageal ca, s/p chemo, stricture, and peg tube, etoh cirrhoisis, htn chf, copd, recent admission to [facility] for cbd stone, h/o covid 12/2019, here with c/o peg tube fell out yesterday evening at 6 pm. stoma is closed. c/o epigastric pain he has had for 3 months. no f/c mild cough. does have h/o gallstoneds, with cbd stone. no current sob. pain is constant, no radiation, achy pain, worse with lying flat. - Physicial Exam PE: 06/07/20 09:52 awake alert lungs clear bilat heart rrr no mrg abd soft epigastric ttp, neg ansari's., peg site closed, no exudate. no erythema. no cva tenderness. ext wwp. no noted edema. or calf tenderness. alert oriented x 3. - Medical Decision Making 06/07/20 09:53 80 yo male with h/o covid ht hld copd cirrhosis esophageal ca s/p peg fall out. c/o pain. mild epigastric ttp on exam differential obstruction from worsening esophageal or stomach ca, pancreatitis, gallstone pancreatitis, cbd stone, choleycstitis, pericarditis ( h/o covid) plan echo, pocus gb, labs cxr lipase. pain control. pt will require admission for replacement PEG tube. ct a/p evaluate for cbd stone, and or obstruction stomach or spread ca. Discharge - Discharge Information Problems reviewed: Yes Clinical Impression/Diagnosis: PEG (percutaneous endoscopic gastrostomy) adjustment/replacement/removal Condition: Stable Disposition: TRANSFER ACUTE CARE/OTHER HOSP - Follow up/Referral - Patient Discharge Instructions - Post Discharge Activity
[2020-06-07 10:30] LABS: BASO % 0.6 % (0-2.0); EOS % 5.7 % (0-4.5); HEMATOCRIT 35.2 % (35.4-49); HEMOGLOBIN 11.6 GM/dL (11.7-16.9); LYMPH % 12.3 % (8-40); MCH 29.4 pg (25.7-33.7); MCHC 33.1 g/dl (32.0-35.9); MEAN PLT VOLUME 10.2 fl (7.5-11.1); NEUT % 68.4 % (42.8-82.8); PLATELET COUNT 124 K/MM3 (134-434); RBC 3.95 M/mm3 (4.00-5.60); RDW 16.6 % (11.9-15.9)
--- NOTE | 2020-06-07 11:02 | EKG ---
Test Reason : Blood Pressure : / mmHG Vent. Rate : 059 BPM Atrial Rate : 059 BPM P-R Int : 154 ms QRS Dur : 090 ms QT Int : 446 ms P-R-T Axes : 006 037 025 degrees QTc Int : 441 ms SINUS BRADYCARDIA MINIMAL VOLTAGE CRITERIA FOR LVH, MAY BE NORMAL VARIANT BORDERLINE ECG WHEN COMPARED WITH ECG OF 14-MAY-2020 14:12, PREMATURE ATRIAL COMPLEXES ARE NO LONGER PRESENT Confirmed by KASIE DIAZ MD ([id number]) on 06/07/2020 11:01:36 AM Referred By: Confirmed By:KASIE DIAZ MD
[2020-06-07 11:03] LABS: ALBUMIN 2.5 g/dl (3.4-5.0); BILIRUBIN,TOTAL 2.5 mg/dL (0.2-1); BLOOD UREA NITROGEN 15.8 mg/dL (7-18); CALCIUM 8.3 mg/dL (8.5-10.1); CREATININE 0.8 mg/dL (0.55-1.3); TOT PROT 8.2 g/dl (6.4-8.2)
[2020-06-07 11:42] LABS: POTASSIUM 7.2 mmol/L (3.5-5.1)
[2020-06-07 13:12] LABS: BLOOD UREA NITROGEN 17.4 mg/dL (7-18); CALCIUM 8.2 mg/dL (8.5-10.1); CREATININE 0.7 mg/dL (0.55-1.3)
[2020-06-07 15:36] VITALS: BP 155/81; PULSE 63; TEMP 97.4
[2020-06-07] MEDS ORDERED: DEXTROSE 5%-NORMAL SALINE 1,000 ML IV SCH (15:45)
--- NOTE | 2020-06-07 16:06 | HP ---
CHIEF COMPLAINT: PEG tube displaced PCP:Dr. Stormy Jules HISTORY OF PRESENT ILLNESS: 80 yo M with PMH of Alcoholic Cirrhosis, Esophageal Squamous Cell Carcinoma (s/p CTX - last went 4 months ago), s/p PEG, HTN, HLD, COPD, CHF, GERD last admission Dysphagia 10/2019- transferred to [facility] for Esophageal Mass. Who presents to the ED with PEG tube displacement. Pt states that PEG tube fell out last night. denies abdominal pain. denies nausea or vomiting. Patient reports having a nonproductive cough. he also states that his urine has been pink. Patient denies fever, chills, SOB, NELSON, palpitations, diarrhea, constipation. Pt is poor historian. cannot recall any surgeries. cannot recall when exactly hi s last chemotherapy was or what the doctors have said about his cancer. In December, pt was admitted to [facility] with acute cholecystitis and was transferred to [facility] [employer] # [id number] ER course was notable for: (1) CT abdomen/ Pelvis (2) (3) Recent Travel: denies PAST MEDICAL HISTORY: see above PAST SURGICAL HISTORY: Social History: Smoking: Alcohol:drinks 1 bottle rum 3-4 times per week. states his last drink was last week Drugs: Allergies No Known Allergies Allergy (Verified 06/07/20 08:27) HOME MEDICATIONS: Home Medications Medication Instructions Recorded Furosemide 40 mg PO Q48H 01/18/20 Metoprolol Tartrate 25 mg PO DAILY 01/18/20 Valsartan 160 mg PO DAILY 01/18/20 Pantoprazole Sodium [Protonix] 40 mg PO DAILY 05/14/20 oxyCODONE HCL [Oxycodone HCl] 5 mg PO Q4HWA PRN 06/07/20 REVIEW OF SYSTEMS CONSTITUTIONAL: Absent: fever, chills, diaphoresis, generalized weakness, malaise, loss of appetite, weight change HEENT: Absent: rhinorrhea, nasal congestion, throat pain, throat swelling, difficulty swallowing, mouth swelling, ear pain, eye pain, visual changes CARDIOVASCULAR: Absent: chest pain, syncope, palpitations, irregular heart rate, lightheadedness, peripheral edema RESPIRATORY: Present: cough Absent: shortness of breath, dyspnea with exertion, orthopnea, wheezing, stridor, hemoptysis GASTROINTESTINAL: Absent: abdominal pain, abdominal distension, nausea, vomiting, diarrhea, constipation, melena, hematochezia GENITOURINARY: Absent: dysuria, frequency, urgency, hesitancy, hematuria, flank pain, genital pain MUSCULOSKELETAL: Absent: myalgia, arthralgia, joint swelling, back pain, neck pain SKIN: Absent: rash, itching, pallor HEMATOLOGIC/IMMUNOLOGIC: Absent: easy bleeding, easy bruising, lymphadenopathy, frequent infections ENDOCRINE: Absent: unexplained weight gain, unexplained weight loss, heat intolerance, cold intolerance NEUROLOGIC: Absent: headache, focal weakness or paresthesias, dizziness, unsteady gait, seizure, mental status changes, bladder or bowel incontinence PHYSICAL EXAMINATION Vital Signs - 24 hr 06/07/20 06/07/20 08:20 15:35 Temperature 98.3 F 97.4 F L Pulse Rate 62 Pulse Rate [ 63 Radial] Respiratory 16 18 Rate Blood Pressure 155/74 Blood Pressure 155/81 [Left Arm] O2 Sat by Pulse 100 98 Oximetry (%) GENERAL: Awake, alert, and fully oriented, in no acute distress. HEAD: Normal with no signs of trauma. EYES: Pupils equal, round and reactive to light, extraocular movements intact EARS, NOSE, THROAT: oropharynx clear without exudates. Moist mucous membranes. LUNGS: Breath sounds equal, bibasilar crackles No accessory muscle use. HEART: Regular rate and rhythm, normal S1 and S2 without murmur ABDOMEN: Soft, mild tenderness RUQ, non distended, hepatomegaly PEG site closed MUSCULOSKELETAL: No CVA tenderness. UPPER EXTREMITIES: 2+ pulses, warm, well-perfused. No cyanosis. No clubbing. No peripheral edema. LOWER EXTREMITIES: 2+ pulses, warm, well-perfused. No calf tenderness. No peripheral edema. NEUROLOGICAL: Cranial nerves II-XII intact. Normal speech. PSYCHIATRIC: Cooperative. Good eye contact. Appropriate mood and affect. SKIN: Warm, dry, normal turgor, no rashes or lesions noted, normal capillary refill. Laboratory Last Values WBC 5.0 K/mm3 (4.0-10.0) 06/07/20 10:15 RBC 3.95 M/mm3 (4.00-5.60) L 06/07/20 10:15 Hgb 11.6 GM/dL (11.7-16.9) L 06/07/20 10:15 Hct 35.2 % (35.4-49) L 06/07/20 10:15 MCV 89.0 fl (80-96) 06/07/20 10:15 MCH 29.4 pg (25.7-33.7) 06/07/20 10:15 MCHC 33.1 g/dl (32.0-35.9) 06/07/20 10:15 RDW 16.6 % (11.9-15.9) H 06/07/20 10:15 Plt Count 124 K/MM3 (134-434) L 06/07/20 10:15 MPV 10.2 fl (7.5-11.1) D 06/07/20 10:15 Absolute Neuts (auto) 3.4 K/mm3 (1.5-8.0) 06/07/20 10:15 Neutrophils % 68.4 % (42.8-82.8) 06/07/20 10:15 Lymphocytes % 12.3 % (8-40) 06/07/20 10:15 Monocytes % 13.0 % (3.8-10.2) H 06/07/20 10:15 Eosinophils % 5.7 % (0-4.5) H 06/07/20 10:15 Basophils % 0.6 % (0-2.0) 06/07/20 10:15 Nucleated RBC % 0 % (0-0) 06/07/20 10:15 Sodium 136 mmol/L (136-145) 06/07/20 11:55 Potassium 5.0 mmol/L (3.5-5.1) 06/07/20 11:55 Chloride 105 mmol/L (98-107) 06/07/20 11:55 Carbon Dioxide 28 mmol/L (21-32) 06/07/20 11:55 Anion Gap 3 MMOL/L (8-16) L 06/07/20 11:55 BUN 17.4 mg/dL (7-18) 06/07/20 11:55 Creatinine 0.7 mg/dL (0.55-1.3) 06/07/20 11:55 Est GFR (CKD-EPI)AfAm 104.03 06/07/20 11:55 Est GFR (CKD-EPI)NonAf 89.76 06/07/20 11:55 Random Glucose 101 mg/dL (74-106) 06/07/20 11:55 Lactic Acid 1.4 mmol/L (0.4-2.0) 06/07/20 10:15 Calcium 8.2 mg/dL (8.5-10.1) L 06/07/20 11:55 Total Bilirubin 2.5 mg/dL (0.2-1) H 06/07/20 10:15 AST 127 U/L (15-37) H 06/07/20 10:15 ALT 24 U/L (13-61) 06/07/20 10:15 Alkaline Phosphatase 152 U/L (45-117) H 06/07/20 10:15 Total Protein 8.2 g/dl (6.4-8.2) 06/07/20 10:15 Albumin 2.5 g/dl (3.4-5.0) L 06/07/20 10:15 Lipase 41 U/L (73-393) L 06/07/20 10:15 CT abdomen/ Pelvis: 1. Findings consistent with cirrhosis, including a small and irregular liver, mild splenomegaly and varices. 2. Cholelithiasis with slightly thick walled gallbladder. No definite evidence of acute cholecysti tis. Clinical correlation and follow-up recommended. 3. No evidence of pancreatitis or acute pathology within the abdomen or pelvis. Please see above discussion. CXR: Devices: Esophageal stent is redemonstrated. Mediastinum: Cardiomegaly is not significantly changed. Atherosclerotic calcifications are reidentified at the aortic knob. Lungs: No focal consolidation. No pleural effusion. No pneumothorax. Bones/soft tissues: Bilateral acromioclavicular joint arthrosis. Upper abdomen: Unremarkable ASSESSMENT/PLAN: 80 yo M with PMH of Alcoholic Cirrhosis, Esophageal Squamous Cell Carcinoma (s/p CTX), s/p PEG, HTN, HLD, COPD, CHF, GERD last admission Dysphagia 10/2019- transferred to [facility] for Esophageal Mass. admitted for PEG tube displacement PEG tube displacement - site appears closed - Surgery, Dr. Moe consulted - Speech/ swallow eval. endorses cough with eating - NPO, IVF Cholelithiasis - surgery eval - no signs of acute cholecystitis, afebrile. no leukocytosis - AST and AP elevation, cont to trend HTN cont home medications HLD will get fasting lipids Alcoholism not currently withdrawing cont to monitor medications reconciled Admit to medicine ATTENDING PHYSICIAN STATEMENT I saw and evaluated the patient. I reviewed the resident's note and discussed the case with the resident. I agree with the resident's findings and plan as documented. SUBJECTIVE: OBJECTIVE: ASSESSMENT AND PLAN:
[2020-06-07 16:21] LABS: URINE APPEARANCE CLEAR; URINE BILIRUBIN NEGATIVE (NEGATIVE); URINE COLOR DK YELLOW; URINE GLUCOSE (UA) NEGATIVE (NEGATIVE); URINE KETONE NEGATIVE (NEGATIVE); URINE PROTEIN NEGATIVE (NEGATIVE); URINE UROBILINOGEN 4.0 E.U/dl mg/dL (0.2-1.0)
[2020-06-07 16:22] LABS: EPI CELLS 9.7 /uL (0-25.1); HYALINE CASTS 0.64 /uL (0-3.1); URINE BACTERIA 161.5 /uL (0-1359); URINE LEUK ESTERASE NEGATIVE (NEGATIVE); URINE NITRITE NEGATIVE (NEGATIVE); URINE RBC 12.5 /uL (0-23.9); URINE WBC 4.4 /uL (0-25.8)
--- NOTE | 2020-06-07 18:30 | PN ---
Teaching Attending Note Name of Resident: Alexandra White ATTENDING PHYSICIAN STATEMENT I saw and evaluated the patient. I reviewed the resident's note and discussed the case with the resident. I agree with the resident's findings and plan as documented. SUBJECTIVE: Patient seen and examined at bedside, endorses G tube/?PEG tube falling out 1-2 days ago, denies complaints however. Not sure how it came out, has extensive medical history, follows at [facility]. VSS. OBJECTIVE: GENERAL: AAox3, speaking in full sentences, disheveled HEENT NC/AT, mild scleral icterus, dry MM, neck supple CHEST good air entry b/l, no wheezing or crackles, no increased WOB HEART: Regular rate and rhythm, normal S1 and S2 without murmur ABDOMEN: Soft, mild tenderness RUQ to deep palpation, non distended, PEG site mostly closed w/ scant clearish discharge Ext no LE edema, no calf tenderness PSYCHIATRIC: Cooperative. Good eye contact. Appropriate mood and affect. SKIN: Warm, dry, normal turgor, no rashes or lesions noted, normal capillary refill. Vital Signs (72 hours) 06/07/20 06/07/20 08:20 15:35 Temperature 98.3 F 97.4 F L Pulse Rate 62 Pulse Rate [ 63 Radial] Respiratory 16 18 Rate Blood Pressure 155/74 Blood Pressure 155/81 [Left Arm] O2 Sat by Pulse 100 98 Oximetry (%) Laboratory Tests 06/07/20 06/07/20 06/07/20 10:15 10:15 10:15 WBC 5.0 RBC 3.95 L Hgb 11.6 L Hct 35.2 L MCV 89.0 MCH 29.4 MCHC 33.1 RDW 16.6 H Plt Count 124 L MPV 10.2 D Absolute Neuts (auto) 3.4 Neutrophils % 68.4 Lymphocytes % 12.3 Monocytes % 13.0 H Eosinophils % 5.7 H Basophils % 0.6 Nucleated RBC % 0 Sodium 133 L Potassium 7.2 H* Chloride 104 Carbon Dioxide 28 Anion Gap 1 L BUN 15.8 Creatinine 0.8 Est GFR (CKD-EPI)AfAm 98.47 Est GFR (CKD-EPI)NonAf 84.96 Random Glucose 111 H Lactic Acid 1.4 Calcium 8.3 L Total Bilirubin 2.5 H AST 127 H ALT 24 Alkaline Phosphatase 152 H Total Protein 8.2 Albumin 2.5 L Lipase 41 L Urine Color Urine Appearance Urine pH Ur Specific Brewster Urine Protein Urine Glucose (UA) Urine Ketones Urine Blood Urine Nitrite Urine Bilirubin Urine Urobilinogen Ur Leukocyte Esterase Urine WBC (Auto) Urine RBC (Auto) Urine Casts (Auto) U Epithel Cells (Auto) Urine Bacteria (Auto) 06/07/20 06/07/20 11:55 15:30 WBC RBC Hgb Hct MCV MCH MCHC RDW Plt Count MPV Absolute Neuts (auto) Neutrophils % Lymphocytes % Monocytes % Eosinophils % Basophils % Nucleated RBC % Sodium 136 Potassium 5.0 Chloride 105 Carbon Dioxide 28 Anion Gap 3 L BUN 17.4 Creatinine 0.7 Est GFR (CKD-EPI)AfAm 104.03 Est GFR (CKD-EPI)NonAf 89.76 Random Glucose 101 Lactic Acid Calcium 8.2 L Total Bilirubin AST ALT Alkaline Phosphatase Total Protein Albumin Lipase Urine Color Dk yellow Urine Appearance Clear Urine pH 7.0 Ur Specific Brewster 1.054 H Urine Protein Negative Urine Glucose (UA) Negative Urine Ketones Negative Urine Blood Negative Urine Nitrite Negative Urine Bilirubin Negative Urine Urobilinogen 4.0 e.u/dl Ur Leukocyte Esterase Negative Urine WBC (Auto) 4.4 Urine RBC (Auto) 12.5 Urine Casts (Auto) 0.64 U Epithel Cells (Auto) 9.7 Urine Bacteria (Auto) 161.5 Home Medications Medication Instructions Recorded Furosemide 40 mg PO Q48H 01/18/20 Metoprolol Tartrate 25 mg PO DAILY 01/18/20 Valsartan 160 mg PO DAILY 01/18/20 Pantoprazole Sodium [Protonix] 40 mg PO DAILY 05/14/20 Dextrose 5%-Normal Saline [D5-Ns -] 100 ml IV ASDIR infus.bag 06/07/20 oxyCODONE HCL [Oxycodone HCl] 5 mg PO Q4HWA PRN 06/07/20 Current Medications Generic Name Dose Route Start Last Admin Trade Name Freq PRN Reason Stop Dose Admin Furosemide 40 mg 06/08/20 10:00 Lasix - PO Q48H VALENCIA Dextrose/Sodium Chloride 1,000 mls @ 100 mls/hr 06/07/20 15:45 06/07/20 16:19 D5-Ns - IV 100 mls/hr ASDIR VALENCIA Administration Metoprolol Tartrate 25 mg 06/08/20 10:00 Lopressor - PO DAILY VALENCIA Pantoprazole Sodium 40 mg 06/08/20 10:00 Protonix - PO DAILY VALENCIA Valsartan 160 mg 06/08/20 10:00 Diovan - PO DAILY VALENCIA ASSESSMENT AND PLAN: 80 M Dislodged PEG tube w/ possible wound closure Alcoholic Cirrhosis Esophageal Squamous Cell Carcinoma s/p chemo last treatment 1 month ago Esophageal strictures HTN HLD COPD CHF GERD Plan: NPO, IVF, hold Lasix for now as patient appears clinically euvolemic No clinical signs for infection Resume BP meds Contact [facility] for transfer for higher level of surgical care (patient's PEG/G tube placement was at [facility]) DVT ppx: SCD
--- NOTE | 2020-06-07 18:44 | DS ---
Physical Exam: SUBJECTIVE: Patient seen and examined at bedside. pt endorsing RUQ discomfort. denies n/v OBJECTIVE: Vital Signs Period Temp Pulse Resp BP Sys/Cronin Pulse Ox Last 24 Hr 97.4 F-98.3 F 62-63 16-18 155-155/74-81 98-100 PHYSICAL EXAM see prior note LABS CBC, BMP 06/07/20 10:15 06/07/20 11:55 HOSPITAL COURSE: Date of Admission:06/07/20 80 yo M with PMH of Alcoholic Cirrhosis, Esophageal Squamous Cell Carcinoma (s/p CTX - last went 4 months ago), s/p PEG, HTN, HLD, COPD, CHF, GERD last admission Dysphagia 10/2019- transferred to [facility] for Esophageal Mass. Who presents to the ED with PEG tube displacement. Pt states that PEG tube fell out last night. denies abdominal pain. denies nausea or vomiting. Patient reports having a nonproductive cough. he also states that his urine has been pink. Patient denies fever, chills, SOB, NELSON, palpitations, diarrhea, constipation. Pt is poor historian. cannot recall any surgeries. cannot recall when exactly his last chemotherapy was or what the doctors have said about his cancer. In December, pt was admitted to [facility] with acute cholecystitis and was transferred to [facility] transfer to [facility] under Dr. Mack. Date of Discharge: 06/07/20 Discharge Summary Reason For Visit: R UPPER QUAD ABD PAIN ENCOUNTER FOR PERCUTANEOUS E Condition: Stable - Instructions Diet, Activity, Other Instructions: Home Medications Medication Instructions Recorded Furosemide 40 mg PO Q48H 01/18/20 Metoprolol Tartrate 25 mg PO DAILY 01/18/20 Valsartan 160 mg PO DAILY 01/18/20 Pantoprazole Sodium [Protonix] 40 mg PO DAILY 05/14/20 oxyCODONE HCL [Oxycodone HCl] 5 mg PO Q4HWA PRN 06/07/20 Tx to [facility] under Dr. Mack. Referrals: Briana Briggs NP [Primary Care Provider] - Disposition: TRANSFER ACUTE CARE/OTHER HOSP - Home Medications Comprehensive Discharge Medication List: Ambulatory Orders Furosemide 40 mg PO Q48H 01/18/20 Metoprolol Tartrate 25 mg PO DAILY 01/18/20 Valsartan 160 mg PO DAILY 01/18/20 Pantoprazole Sodium [Protonix] 40 mg PO DAILY 05/14/20 oxyCODONE HCL [Oxycodone HCl] 5 mg PO Q4HWA PRN 06/07/20 ATTENDING PHYSICIAN STATEMENT I saw and evaluated the patient. I reviewed the resident's note and discussed the case with the resident. I agree with the resident's findings and plan as documented. SUBJECTIVE: OBJECTIVE: ASSESSMENT AND PLAN:
[2020-06-08] MEDS ORDERED: PANTOPRAZOLE 40 MG TABLET PO SCH (10:00)
[2020-06-08] MEDS ORDERED: METOPROLOL TARTRATE 25 MG TABLET (FP) PO SCH (10:00)
[2020-06-08] MEDS ORDERED: FUROSEMIDE 40 MG TABLET (FP) PO SCH (10:00)
[2020-06-08] MEDS ORDERED: VALSARTAN 160 MG TABLET (UD) PO SCH (10:00)
--- NOTE | 2020-06-08 10:34 | CONSULT ---
Admitting History and Physical - Admission History of Present Illness: 80 yo M with PMH of Alcoholic Cirrhosis, Esophageal Squamous Cell Carcinoma (s/p CTX), s/p PEG, HTN, HLD, COPD, CHF, GERD last admission Dysphagia 10/2019- transferred to [facility] for Esophageal Mass. admitted for PEG tube displacement CT abdomen/ Pelvis: 1. Findings consistent with cirrhosis, including a small and irregular liver, mild splenomegaly and varices. 2. Cholelithiasis with slightly thick walled gallbladder. No definite evidence of acute cholecysti tis. Clinical correlation and follow-up recommended. 3. No evidence of pancreatitis or acute pathology within the abdomen or pelvis. Please see above discussion. CXR: Devices: Esophageal stent is redemonstrated. Mediastinum: Cardiomegaly is not significantly changed. Atherosclerotic calcifications are reidentified at the rtic knob. Lungs: No focal consolidation. No pleural effusion. No pneumothorax. Bones/soft tissues: Bilateral acromioclavicular joint arthrosis. Upper abdomen: Unremarkable Pending [facility] for transfer for higher level of surgical care (patient's PEG/G tube placement was at [facility]) No further assessment at this time Laboratory Tests 06/07/20 11:45 COVID-19 (BRENDAN) Detected H - Past Medical History Cardiovascular: Yes: CHF, HTN, Hyperlipdemia Pulmonary: Yes: Asthma, COPD Gastrointestinal: Yes: GERD, Hemorrhoids Hepatobiliary: Yes: Cirrhosis, Other (GALLBLADDER POLYP) Heme/Onc: Yes: Current Chemotherapy ENT: Yes: Other (Esophageal Squamous Cell Ca) - Past Surgical History Past Surgical History: Yes: Joint Replacement - Smoking History Smoking history: Never smoked Have you smoked in the past 12 months: No Aproximately how many cigarettes per day: 0 If you are a former smoker, when did you quit?: - Alcohol/Substance Use Hx Alcohol Use: Yes (Former- Feburary 2019) Number of Drinks Daily: 6 History of Substance Use: reports: None - Social History ADL: Independent 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
--- NOTE | 2020-06-09 09:10 | EKG ---
Test Reason : Blood Pressure : / mmHG Vent. Rate : 059 BPM Atrial Rate : 059 BPM P-R Int : 154 ms QRS Dur : 090 ms QT Int : 446 ms P-R-T Axes : 006 037 025 degrees QTc Int : 441 ms SINUS BRADYCARDIA MINIMAL VOLTAGE CRITERIA FOR LVH, MAY BE NORMAL VARIANT BORDERLINE ECG WHEN COMPARED WITH ECG OF 14-MAY-2020 14:12, PREMATURE ATRIAL COMPLEXES ARE NO LONGER PRESENT Confirmed by MD LORAINE, JOVAN ([id number]) on 06/09/2020 9:09:55 AM Referred By: Confirmed By:JOVAN BARON MD
== END 2020-06-07 20:20 | disposition short-term general hospital (02) | DRG 394 ==
LOC: JER 08:16 → JERBED 13:45
DX: Z43.1 Encounter for attention to gastrostomy (principal); C15.9 Malignant neoplasm of esophagus, unspecified; K70.30 Alcoholic cirrhosis of liver without ascites; I10 Essential (primary) hypertension; E78.5 Hyperlipidemia, unspecified; J44.9 Chronic obstructive pulmonary disease, unspecified; K21.9 Gastro-esophageal reflux disease without esophagitis; R13.10 Dysphagia, unspecified; I11.0 Hypertensive heart disease with heart failure; I50.89 Other heart failure; K80.80 Other cholelithiasis without obstruction; F10.20 Alcohol dependence, uncomplicated; R16.1 Splenomegaly, not elsewhere classified; K22.2 Esophageal obstruction
CPT/HCPCS: 36415; 71045-TC-FY; 74177-TC; 76705-TC; 80048; 80053; 81003; 83605; 83690; 85025; 87086; 93005; 93010; 93308; 99285-25; Q9967; U0003